=== PATIENT | male | born 1985 | race Caucasian/White ===

== ENCOUNTER 2016-11-10 12:29 | Emergency (ER) | payer MEDICAID | END 2016-11-10 15:09 | disposition home or self-care (01) | DX: J06.9 Acute upper respiratory infection, unspecified (principal); Q68.8 Other specified congenital musculoskeletal deformities; M06.9 Rheumatoid arthritis, unspecified; Z87.891 Personal history of nicotine dependence ==

== ENCOUNTER 2016-11-13 12:41 | Emergency (ER) | payer MEDICAID ==
[2016-11-13] MEDS ORDERED: HYDROmorphone 1 MG/ML SYRINGE IM STA (13:52)
[2016-11-13] MEDS ORDERED: PROMETHAZINE 25 MG/1 ML VIAL IM STA (13:57)
[2016-11-13] MEDS ORDERED: PROMETHAZINE 25 MG/1 ML VIAL ONE (14:17)
[2016-11-13] MEDS ORDERED: HYDROmorphone 1 MG/ML SYRINGE ONE (14:18)
== END 2016-11-13 14:30 | disposition home or self-care (01) ==
DX: H57.8 Other specified disorders of eye and adnexa (principal); J01.00 Acute maxillary sinusitis, unspecified; Z87.891 Personal history of nicotine dependence; H60.503 Unspecified acute noninfective otitis externa, bilateral
CPT/HCPCS: 96372; 99283; 99284; J1170

== ENCOUNTER 2016-12-12 | Outpatient (CLI) | payer MEDICAID | END 2016-12-12 17:01 | disposition critical access hospital (66) | CPT/HCPCS: A0425; A0429 ==

== ENCOUNTER 2016-12-12 17:31 | Emergency (ER) | payer MEDICAID ==
--- NOTE | 2016-12-12 19:10 | ED Physician Documentation ---
PD HPI SKIN - Stated complaint Stated Complaint: RT LEG PAIN - Chief complaint Chief Complaint: Ext Problem - History obtained from History obtained from: Patient - History of Present Illness Timing - onset: Other (has had heel wounds for several days with redness. Seen in wound care and had dressing changed. With redness increased was Rx Keflex, but did not get to pharmacy to get it yet. Dressing changes and debridement today caused heels and legs to hurt a lot. Here due to pain.) Timing - details: Abrupt onset (after debridement in clinic), Still present Quality / character: Painful, Discolored (redness). No: Draining Associated symptoms: No: Fever, N/V/D Recently seen: Clinic (seen wound clinic today with debridement of heel sores. 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, and with current infection of right heel.) PD PAST MEDICAL HISTORY - Past Medical History Past Medical History: Yes Cardiovascular: Arrhythmia Respiratory: None Neuro: None, Peripheral neuropathy Endocrine/Autoimmune: None HEENT: Chronic vision loss Psych: Anxiety Musculoskeletal: Rheumatoid arthritis, Other - Past Surgical History Past Surgical History: Yes Ortho: Arthroscopic surgery - Present Medications Home Medications: Ambulatory Orders Medication Instructions Recorded Confirmed HYDROmorphone [Dilaudid] 2 mg PO QID 08/16/16 12/12/16 Diazepam 1 tab PO BID PRN 10/26/16 12/12/16 Albuterol Sulfate 2.5 mg IH Q6H PRN #1 bot 11/13/16 12/12/16 Promethazine [Phenergan] 25 - 50 mg PO Q6H PRN #15 tab 11/13/16 12/12/16 Omeprazole 40 mg PO DAILY 12/12/16 12/12/16 buPROPion [Wellbutrin Sr] 150 mg PO BID 12/12/16 12/12/16 - Allergies Allergies/Adverse Reactions: Allergies Allergy/AdvReac Type Severity Reaction Status Date / Time ketorolac tromethamine * Allergy Unknown Verified 09/07/16 21:06 [From Toradol] tramadol Allergy Unknown Verified 09/07/16 21:06 acetaminophen [From Vicodin] AdvReac severe Verified 09/07/16 21:06 headache hydrocodone bitartrate * AdvReac severe Verified 09/07/16 21:06 [From Vicodin] headache NSAIDS (Non-Steroidal AdvReac Nausea Verified 12/12/16 17:41 Anti-Inflamma - Social History Does the pt smoke?: No Smoking Status: Former smoker Does the pt drink ETOH?: Yes Does the pt have substance abuse?: No - Immunizations Immunizations are current?: Yes - POLST Patient has POLST: No PD ED PE NORMAL - Vitals Vital signs reviewed: Yes - General General: Alert and oriented X 3, Well developed/nourished - Derm Derm: Normal color, Warm and dry - Extremities Extremities: Other (right heel with ulcerative sore without drainage. Redness around it. Very tender. Dressing reapplied by Tech. ) Results - Vitals Vitals: Vital Signs - 24 hr 12/12/16 12/12/16 17:32 20:12 Temperature 36.7 C Heart Rate 100 123 H Respiratory 20 15 Rate Blood Pressure 129/86 H 150/107 H O2 Saturation 100 97 Oxygen O2 Source Room air PD MEDICAL DECISION MAKING - ED course Complexity details: considered differential (talked with Herman about frequent visits to ED for med and that ongoing pain should be treated by his PMD.), d/w patient Departure - Departure Disposition: 01 Home, Self Care Clinical Impression: Skin infection Leg pain Qualifiers: Laterality: bilateral Qualified Code(s): M79.604 - Pain in right leg Condition: Stable Record reviewed to determine appropriate education?: Yes Follow-Up: Nils Macedo DO [Primary Care Provider] - Comments: Continue usual medications. Start the antibiotics you are prescribed. Continue wound care as directed by your PMD. Discharge Date/Time: 12/12/16 20:31
[2016-12-12] MEDS ORDERED: HYDROmorphone 1 MG/ML SYRINGE IM STA (19:11)
[2016-12-12] MEDS ORDERED: CEPHALEXIN 250 MG CAPSULE PO STA (19:11)
[2016-12-12] MEDS ORDERED: MUPIROCIN 2% OINT 22 GM TUBE TOP STA (19:12)
[2016-12-12] MEDS ORDERED: HYDROmorphone 1 MG/ML SYRINGE ONE ×2 (19:19→19:46)
[2016-12-12] MEDS ORDERED: CEPHALEXIN 250 MG CAPSULE PO ONE (19:19)
[2016-12-12] MEDS ORDERED: MUPIROCIN 2% OINT 22 GM TUBE TOP ONE (19:21)
[2016-12-12] MEDS ORDERED: PROMETHAZINE 25 MG/1 ML VIAL IM STA (19:27)
[2016-12-12] MEDS ORDERED: PROMETHAZINE 25 MG/1 ML VIAL ONE (19:45)
[2016-12-12 20:13] VITALS: BP 150/107
== END 2016-12-12 20:31 | disposition home or self-care (01) ==
LOC: EDUNIT# → EDBD → ED 17:31
DX: L08.9 Local infection of the skin and subcutaneous tissue, unspecified (principal); L97.419 Non-pressure chronic ulcer of right heel and midfoot with unspecified severity; M79.605 Pain in left leg; M79.604 Pain in right leg; G62.9 Polyneuropathy, unspecified; M06.9 Rheumatoid arthritis, unspecified; Z87.891 Personal history of nicotine dependence
CPT/HCPCS: 96372; 99283; A9270; J1170

== ENCOUNTER 2016-12-13 | Outpatient (CLI) | payer MEDICAID | END 2016-12-13 18:04 | disposition critical access hospital (66) | CPT/HCPCS: A0425; A0429 ==

== ENCOUNTER 2016-12-13 | Emergency (ER) | payer MEDICAID | END 2016-12-13 19:10 | disposition home or self-care (01) ==

== ENCOUNTER 2017-02-07 19:24 | Outpatient (CLI) | payer MEDICAID | END 2017-02-07 19:25 | disposition EMS.NT | DX: R53.81 Other malaise (principal) ==

== ENCOUNTER 2017-02-11 10:53 | Outpatient (CLI) | payer MEDICAID | END 2017-02-11 10:54 | disposition home or self-care (01) | DX: Q74.3 Arthrogryposis multiplex congenita (principal); M54.5 Low back pain; Z79.891 Long term (current) use of opiate analgesic; M99.08 Segmental and somatic dysfunction of rib cage; N53.12 Painful ejaculation ==

== ENCOUNTER 2017-02-24 14:30 | Outpatient (CLI) | payer MEDICAID | END 2017-02-24 14:31 | disposition home or self-care (01) | DX: L89.512 Pressure ulcer of right ankle, stage 2 (principal) ==

== ENCOUNTER 2017-02-24 17:37 | Emergency (ER) | payer MEDICAID ==
[2017-02-24] MEDS ORDERED: PROMETHAZINE 25 MG/1 ML VIAL IM STA (17:50)
[2017-02-24] MEDS ORDERED: CIPROFLOXACIN 250 MG TABLET PO STA (17:50)
[2017-02-24] MEDS ORDERED: HYDROmorphone 1 MG/ML SYRINGE IM STA (17:50)
[2017-02-24] MEDS ORDERED: PROMETHAZINE 25 MG/1 ML VIAL ONE (17:52)
[2017-02-24] MEDS ORDERED: CIPROFLOXACIN 250 MG TABLET PO ONE (17:53)
[2017-02-24] MEDS ORDERED: HYDROmorphone 1 MG/ML SYRINGE ONE (17:53)
== END 2017-02-24 18:28 | disposition home or self-care (01) ==
DX: L03.115 Cellulitis of right lower limb (principal); I49.9 Cardiac arrhythmia, unspecified; G62.9 Polyneuropathy, unspecified; M06.9 Rheumatoid arthritis, unspecified; Z87.891 Personal history of nicotine dependence
CPT/HCPCS: 87070; 87205; 96372; 99283; A9270; J1170

== ENCOUNTER 2017-03-01 13:06 | Emergency (ER) | payer MEDICAID ==
[2017-03-01] MEDS ORDERED: PROMETHAZINE 25 MG/1 ML VIAL IM STA (13:33)
[2017-03-01] MEDS ORDERED: HYDROmorphone 1 MG/ML SYRINGE IM STA (13:33)
[2017-03-01] MEDS ORDERED: HYDROmorphone 1 MG/ML SYRINGE ONE (13:34)
[2017-03-01] MEDS ORDERED: PROMETHAZINE 25 MG/1 ML VIAL ONE (13:34)
[2017-03-01] MEDS ORDERED: ERTAPENEM 1 GM VIAL IM STA (13:55)
== END 2017-03-01 14:55 | disposition home or self-care (01) ==
DX: L03.115 Cellulitis of right lower limb (principal); B96.5 Pseudomonas (aeruginosa) (mallei) (pseudomallei) as the cause of diseases classified elsewhere; B95.2 Enterococcus as the cause of diseases classified elsewhere; L89.512 Pressure ulcer of right ankle, stage 2; R03.0 Elevated blood-pressure reading, without diagnosis of hypertension; Q68.8 Other specified congenital musculoskeletal deformities; G62.9 Polyneuropathy, unspecified; M06.9 Rheumatoid arthritis, unspecified; Z87.891 Personal history of nicotine dependence
CPT/HCPCS: 96372; 99283; 99284; J1170; J1335

== ENCOUNTER 2017-11-09 21:20 | Outpatient (CLI) | payer MEDICAID | END 2017-11-09 21:21 | disposition EMS.NT | LOC: EMS 21:20 | PROVIDERS: ATTEND Surgery | DX: I10 Essential (primary) hypertension (principal) ==

== ENCOUNTER 2017-12-02 18:50 | Emergency (ER) | payer MEDICAID ==
[2017-12-02 19:00] VITALS: BP 169/95
[2017-12-02] MEDS ORDERED: CYCLOBENZAPRINE 10 MG TABLET PO STA (20:16)
[2017-12-02 20:51] LABS: MEAN PLATELET VOLUME 8.8 fL (7.4-11.4); PLT - PLATELET COUNT 274 10^3/uL (130-450)
[2017-12-02 20:56] LABS: BASOPHILS # (AUTO) 0.2 10^3/uL (0.0-0.1); BASOPHILS % (AUTO) 1.7 %; EOSINOPHILS # (AUTO) 0.2 10^3/uL (0.0-0.7); EOSINOPHILS % (AUTO) 1.6 %; LYMPHOCYTES # (AUTO) 4.1 10^3/uL (1.5-3.5); LYMPHOCYTES % (AUTO) 31.6 %; MEAN CORPUSCULAR HEMOGLOBIN 25.8 pg (27.0-31.0); MEAN CORPUSCULAR HGB CONC 31.9 g/dL (32.0-36.0); MONOCYTES # (AUTO) 0.8 10^3/uL (0.0-1.0); MONOCYTES % (AUTO) 6.1 %; NEUTROPHILS # (AUTO) 7.7 10^3/uL (1.5-6.6); RED BLOOD COUNT 5.44 10^6/uL (4.70-6.10); RED CELL DISTRIBUTION WIDTH 15.1 % (12.0-15.0); WHITE BLOOD COUNT 13.1 x10^3/uL (4.8-10.8)
[2017-12-02 21:12] LABS: ALBUMIN 4.2 g/dL (3.2-5.5); ALBUMIN/GLOBULIN RATIO 1.1 (1.0-2.2); BILIRUBIN,TOTAL 0.4 mg/dL (0.2-1.0); CALCIUM 9.2 mg/dL (8.5-10.3); CREATININE 0.6 mg/dL (0.6-1.2); TOTAL PROTEIN 8.1 g/dL (6.7-8.2)
--- NOTE | 2017-12-02 21:28 | ED Physician Documentation ---
PD HPI LOWER EXT INJURY - Stated complaint Stated Complaint: R LEG PX - Chief complaint Chief Complaint: Ext Problem - History obtained from History obtained from: Patient - History of Present Illness PD HPI LOW EXT INJURY LOCATION: Right, Upper leg Where injury occurred: Home Timing - onset: How many days ago (2) Timing - details: Gradual onset, Still present Associated symptoms: No: Weakness, Numbness, Discolored Contributing factors: Prior ortho surgery, Prosthetic joint Similar symptoms before: No diagnosis Recently seen: Not recently seen - Additional information Additional information: Patient is a 32 year old male who is presenting to the emergency deparment for pain and spasm in his right lower extremity. Patient states that it has been going on for the last few days. Patient states that it is mainly above his knee with radiation up his hip and towards his medial knee. Patient denies any recent trauma. Review of Systems Constitutional: denies: Fever, Chills Eyes: reports: Reviewed and negative Ears: reports: Reviewed and negative Nose: reports: Reviewed and negative Throat: reports: Reviewed and negative Cardiac: denies: Chest pain / pressure, Palpitations, Pedal edema Respiratory: denies: Dyspnea GI: denies: Nausea, Vomiting : reports: Reviewed and negative Skin: denies: Rash, Abrasion (s) Musculoskeletal: reports: Extremity pain, Extremity swelling Neurologic: denies: Generalized weakness, Focal weakness Immunocompromised: denies: Immunocompromised PD PAST MEDICAL HISTORY - Past Medical History Cardiovascular: Arrhythmia Respiratory: None Neuro: Peripheral neuropathy Endocrine/Autoimmune: None HEENT: Chronic vision loss Psych: Anxiety Musculoskeletal: Rheumatoid arthritis, Other - Past Surgical History Past Surgical History: Yes Ortho: Arthroscopic surgery - Present Medications Home Medications: Ambulatory Orders Medication Instructions Recorded Confirmed HYDROmorphone [Dilaudid] 2 mg PO QID 08/16/16 03/01/17 Albuterol Sulfate 2.5 mg IH Q6H PRN #1 bot 11/13/16 03/01/17 Omeprazole 40 mg PO DAILY 12/12/16 03/01/17 Cyclobenzaprine [Flexeril] 10 mg PO TID PRN #10 tablet 12/02/17 - Allergies Allergies/Adverse Reactions: Allergies Allergy/AdvReac Type Severity Reaction Status Date / Time ketorolac tromethamine * Allergy Unknown Verified 12/02/17 19:00 [From Toradol] tramadol Allergy Unknown Verified 12/02/17 19:00 acetaminophen [From Vicodin] AdvReac severe Verified 12/02/17 19:00 headache hydrocodone bitartrate * AdvReac severe Verified 12/02/17 19:00 [From Vicodin] headache NSAIDS (Non-Steroidal AdvReac Nausea Verified 12/02/17 19:00 Anti-Inflamma - Social History Does the pt smoke?: No Smoking Status: Never smoker Does the pt drink ETOH?: Yes Does the pt have substance abuse?: No - Immunizations Immunizations are current?: Yes - POLST Patient has POLST: No PD ED PE NORMAL - Vitals Vital signs reviewed: Yes - General General: Alert and oriented X 3, No acute distress - HEENT HEENT: Atraumatic, PERRL - Neck Neck: No bony TTP - Cardiac Cardiac: RRR, No murmur - Respiratory Respiratory: No respiratory distress - Derm Derm: Normal color, Warm and dry, No rash - Neuro Neuro: Alert and oriented X 3, Normal speech PD ED PE EXPANDED - Extremities Extremities: Right thigh (mild tenderness to palpation of right thigh, no erythema or ecchymosis), Other (patient's bilateral ankles are in braces and deformity of upper extremities unchanged) Results - Vitals Vitals: Vital Signs - 24 hr 12/02/17 18:55 Temperature 37.1 C Heart Rate 97 Respiratory 16 Rate Blood Pressure 169/95 H O2 Saturation 97 Oxygen O2 Source Room air - Labs Labs: Laboratory Tests 12/02/17 12/02/17 20:43 20:43 WBC 13.1 H RBC 5.44 Hgb 14.0 Hct 44.1 MCV 81.0 MCH 25.8 L MCHC 31.9 L RDW 15.1 H Plt Count 274 MPV 8.8 Neut # 7.7 H Lymph # 4.1 H Bond # 0.8 Eos # 0.2 Baso # 0.2 H Absolute Nucleated RBC 0.01 Nucleated RBC % 0.0 Sodium 137 Potassium 3.9 Chloride 103 Carbon Dioxide 22 Anion Gap 12.0 BUN 17 Creatinine 0.6 Estimated GFR (MDRD) 154 Glucose 88 Calcium 9.2 Total Bilirubin 0.4 AST 16 ALT 17 Alkaline Phosphatase 50 Total Protein 8.1 Albumin 4.2 Globulin 3.9 Albumin/Globulin Ratio 1.1 Lipase 35 PD MEDICAL DECISION MAKING - ED course Complexity details: reviewed old records, reviewed results, re-evaluated patient , considered differential, d/w patient ED course: Patient was seen and examined at bedside. Patient was in no distress. Patient was treated with flexeril and labs were drawn. When patient's diagnostics came back there were no major abnormalities. Patient required no further work up and was stable for discharge with outpatient follow up. Departure - Departure Disposition: 01 Home, Self Care Clinical Impression: Muscle strain Condition: Good Instructions: ED Spasm Muscle Follow-Up: Nils Macedo DO [Primary Care Provider] - As Needed Prescriptions: Cyclobenzaprine [Flexeril] 10 mg PO TID PRN #10 tablet PRN Reason: Spasms Comments: Your diagnostics today were within normal limits. there were no major abnormalities on your labs. The most important thing will be stretching your quadriceps. You should work with your doctor to set up physical therapy but home stretching should suffice. Discharge Date/Time: 12/02/17 21:33
== END 2017-12-02 21:33 | disposition home or self-care (01) ==
LOC: ED 18:50
DX: S76.911A Strain of unspecified muscles, fascia and tendons at thigh level, right thigh, initial encounter (principal); M06.9 Rheumatoid arthritis, unspecified
CPT/HCPCS: 36415; 80053; 83690; 85025; 99282; 99283; A9270

== ENCOUNTER 2017-12-11 04:13 | Outpatient (CLI) | payer MEDICAID | END 2017-12-11 04:14 | disposition EMS.NT | LOC: EMS 04:13 | PROVIDERS: ATTEND Surgery | DX: R07.9 Chest pain, unspecified (principal) ==

== ENCOUNTER 2017-12-30 19:19 | Outpatient (CLI) | payer MEDICAID | END 2017-12-30 19:20 | disposition critical access hospital (66) | LOC: EMS 19:19 | PROVIDERS: ATTEND Surgery | DX: H53.9 Unspecified visual disturbance (principal); R07.9 Chest pain, unspecified | CPT/HCPCS: A0425; A0429 ==

== ENCOUNTER 2017-12-30 19:31 | Emergency (ER) | payer MEDICAID ==
[2017-12-30 19:43] VITALS: BP 156/96
[2017-12-30] MEDS ORDERED: MECLIZINE 12.5 MG TABLET PO STA (20:13)
--- NOTE | 2017-12-30 20:20 | ED Physician Documentation ---
History of Present Illness - Stated complaint Stated Complaint: VISUAL DISTURBANCES - Chief complaint Chief Complaint: General - History obtained from History obtained from: Patient, Friend - History of Present Illness Timing: Today - Additonal information Additional information: patient is a 32 year old male presenting to the emergency department for his eyes shaking. Patient states that he was driving when everything seemed to be spinning. patient states that he pulled over and had his friend bring him in. Upon initial evaluation in the emergency department patient's symptoms had improved but he still had some of the symptoms if he moved his head. Patient denied any focal numbness, weakness or or neurological deficiency. Review of Systems Eyes: reports: Decreased vision Ears: reports: Tinnitus/ringing Nose: denies: Rhinorrhea / runny nose, Congestion Throat: reports: Reviewed and negative Cardiac: reports: Reviewed and negative Respiratory: reports: Reviewed and negative GI: reports: Reviewed and negative : reports: Reviewed and negative Skin: reports: Reviewed and negative Musculoskeletal: reports: Reviewed and negative Neurologic: denies: Focal weakness, Numbness, Headache, Head injury, LOC Psychiatric: reports: Anxiety PD PAST MEDICAL HISTORY - Past Medical History Past Medical History: Yes Cardiovascular: Arrhythmia Respiratory: None Neuro: Peripheral neuropathy Endocrine/Autoimmune: None HEENT: Chronic vision loss Psych: Anxiety Musculoskeletal: Rheumatoid arthritis, Other - Past Surgical History Past Surgical History: Yes Ortho: Arthroscopic surgery - Present Medications Home Medications: Ambulatory Orders Medication Instructions Recorded Confirmed HYDROmorphone [Dilaudid] 2 mg PO QID 08/16/16 03/01/17 Albuterol Sulfate 2.5 mg IH Q6H PRN #1 bot 11/13/16 03/01/17 Omeprazole 40 mg PO DAILY 12/12/16 03/01/17 Cyclobenzaprine [Flexeril] 10 mg PO TID PRN #10 tablet 12/02/17 Meclizine [Antivert] 25 mg PO Q6H #20 tablet 12/30/17 - Allergies Allergies/Adverse Reactions: Allergies Allergy/AdvReac Type Severity Reaction Status Date / Time ketorolac tromethamine * Allergy Unknown Verified 12/02/17 19:00 [From Toradol] tramadol Allergy Unknown Verified 12/02/17 19:00 acetaminophen [From Vicodin] AdvReac severe Verified 12/02/17 19:00 headache hydrocodone bitartrate * AdvReac severe Verified 12/02/17 19:00 [From Vicodin] headache NSAIDS (Non-Steroidal AdvReac Nausea Verified 12/02/17 19:00 Anti-Inflamma - Social History Does the pt smoke?: No Smoking Status: Never smoker Does the pt drink ETOH?: Yes Does the pt have substance abuse?: No - Immunizations Immunizations are current?: Yes - POLST Patient has POLST: No PD ED PE NORMAL - General General: Alert and oriented X 3, No acute distress - Cardiac Cardiac: RRR, No murmur - Respiratory Respiratory: No respiratory distress - Derm Derm: Normal color, No rash - Neuro Neuro: Alert and oriented X 3, 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, No sensory deficit Eye Opening: Spontaneous Motor: Obeys Commands Verbal: Oriented GCS Score: 15 PD ED PE EXPANDED - Neuro Neuro: Other (mimal nystagmus) Results - Vitals Vitals: Vital Signs - 24 hr 12/30/17 19:35 Temperature 37.4 C Heart Rate 82 Respiratory 20 Rate Blood Pressure 156/96 H O2 Saturation 98 Oxygen O2 Source Room air - EKG (time done) 1940 Rate: Rate (enter#) (76) Rhythm: NSR [place]: Normal QRS: LVH Compare to prior EKG: Unchanged from prior EKG PD MEDICAL DECISION MAKING - ED course Complexity details: reviewed old records, reviewed results, re-evaluated patient , considered differential, d/w patient ED course: Patient was seen and examined at bedside. Patient had ekg performed in triage that was unchanged. Patient's symptoms were likely secondary to bpv. Patient required no further work up and was stable for discharge with outpatient follow up. Departure - Departure Disposition: 01 Home, Self Care Clinical Impression: Benign positional vertigo Condition: Good Instructions: ED BPV Vertigo Follow-Up: primary,care provider [Other] - As Needed Prescriptions: Meclizine [Antivert] 25 mg PO Q6H #20 tablet Comments: Your symptoms today are likely being caused by benign positional vertigo which is caused by your inner ear. it is normally worse with certain movements. You can try the modified maneuvers as needed but it normally gets better on its own. you should follow up with your doctor if if becomes more frequent or doesnt' resolve. Discharge Date/Time: 12/30/17 20:25
== END 2017-12-30 20:25 | disposition home or self-care (01) ==
LOC: EDUNIT# → ED 19:31
DX: H81.10 Benign paroxysmal vertigo, unspecified ear (principal)
CPT/HCPCS: 93005; 99283; A9270

== ENCOUNTER 2018-01-24 20:38 | Outpatient (CLI) | payer MEDICAID | END 2018-01-24 20:39 | disposition EMS.NT | LOC: EMS 20:38 | PROVIDERS: ATTEND Surgery | DX: R00.8 Other abnormalities of heart beat (principal) ==

== ENCOUNTER 2018-01-25 20:09 | Emergency (ER) | payer MEDICAID ==
--- NOTE | 2018-01-25 21:07 | ED Physician Documentation ---
PD HPI CHEST PAIN - Stated complaint Stated Complaint: HIGH HEART RATE/NAUS - Chief complaint Chief Complaint: Cardiac - History obtained from History obtained from: Patient - History of Present Illness Timing - onset: Other (32-year-old gentleman with history of arthrogryposis and chronic pain. He drank a large high alcohol drink last night and then immediately became flushed and developed throbbing pain around the neck and into the face and the chest. He was evaluated by paramedics and released, but it has been coming and going today especially after drinking Crystal light. He is not short of breath per se.) Review of Systems Constitutional: denies: Fever, Chills Cardiac: reports: Chest pain / pressure, Palpitations. denies: Pedal edema, Calf pain Respiratory: denies: Dyspnea, Cough GI: denies: Abdominal Pain PD PAST MEDICAL HISTORY - Past Medical History Cardiovascular: Arrhythmia Respiratory: None Neuro: Peripheral neuropathy Endocrine/Autoimmune: None GI: None : None HEENT: Chronic vision loss Psych: Anxiety Musculoskeletal: Rheumatoid arthritis, Other Derm: None - Past Surgical History Past Surgical History: Yes Ortho: Arthroscopic surgery - Present Medications Home Medications: Ambulatory Orders Medication Instructions Recorded Confirmed HYDROmorphone [Dilaudid] 2 mg PO QID 08/16/16 03/01/17 Albuterol Sulfate 2.5 mg IH Q6H PRN #1 bot 11/13/16 03/01/17 Omeprazole 40 mg PO DAILY 12/12/16 03/01/17 Cyclobenzaprine [Flexeril] 10 mg PO TID PRN #10 tablet 12/02/17 Meclizine [Antivert] 25 mg PO Q6H #20 tablet 12/30/17 - Allergies Allergies/Adverse Reactions: Allergies Allergy/AdvReac Type Severity Reaction Status Date / Time ketorolac tromethamine * Allergy Unknown Verified 12/02/17 19:00 [From Toradol] tramadol Allergy Unknown Verified 12/02/17 19:00 acetaminophen [From Vicodin] AdvReac severe Verified 12/02/17 19:00 headache hydrocodone bitartrate * AdvReac severe Verified 12/02/17 19:00 [From Vicodin] headache NSAIDS (Non-Steroidal AdvReac Nausea Verified 12/02/17 19:00 Anti-Inflamma oxycodone AdvReac Unknown Verified 01/25/18 20:20 - Social History Does the pt smoke?: No Smoking Status: Never smoker Does the pt drink ETOH?: Yes Does the pt have substance abuse?: No - Immunizations Immunizations are current?: Yes - POLST Patient has POLST: No PD ED PE NORMAL - Vitals Vital signs reviewed: Yes - General General: Alert and oriented X 3, Other (Arthrogryposis, mostly wheelchair-bound. ) - Neck Neck: Supple, no meningeal sign, No bony TTP - Cardiac Cardiac: RRR, No murmur, Other (Tenderness to the anterior chest wall and lateral ribs on the left) - Respiratory Respiratory: No respiratory distress, Clear bilaterally - Abdomen Abdomen: Non tender - Extremities Extremities: No edema, No calf tenderness / cord, Other (Feet in splints, multiple orthopedic abnormalities.) - Neuro Neuro: Alert and oriented X 3, Normal speech Results - Vitals Vitals: Vital Signs - 24 hr 01/25/18 01/25/18 20:16 21:14 Temperature 37.3 C Heart Rate 106 H 87 Respiratory 20 13 Rate Blood Pressure 142/99 H 137/99 H O2 Saturation 94 97 Oxygen O2 Source Room air - EKG (time done) 2020 Rate: Rate (enter#) (95) Rhythm: NSR [place]: Normal QRS: LVH Ischemia: Non specific changes Computer interpretation: Agree with computer - Labs Labs: Laboratory Tests 01/25/18 01/25/18 01/25/18 21:25 21:25 21:25 WBC 15.0 H RBC 5.25 Hgb 13.7 L Hct 41.8 L MCV 79.6 L MCH 26.1 L MCHC 32.7 RDW 14.7 Plt Count 249 MPV 8.8 Neut # 9.7 H Lymph # 3.8 H [place] # 1.0 Eos # 0.3 Baso # 0.2 H Absolute Nucleated RBC 0.00 Nucleated RBC % 0.0 Sodium 138 Potassium 3.9 Chloride 106 Carbon Dioxide 22 Anion Gap 10.0 BUN 18 Creatinine 0.4 L Estimated GFR (MDRD) 246 Glucose 96 Calcium 9.1 Total Bilirubin 0.5 AST 17 ALT 19 Alkaline Phosphatase 51 Troponin I < 0.04 Total Protein 7.9 Albumin 4.1 Globulin 3.8 Albumin/Globulin Ratio 1.1 Lipase 21 L PD MEDICAL DECISION MAKING - ED course ED course: Symptoms seem like they are related to the alcohol last night, his EKG now is nonischemic and he did not have any significant tachycardias here. His troponin is undetectable. PE is considered but he is not having any new leg symptoms or shortness of breath. Departure - Departure Disposition: 01 Home, Self Care Clinical Impression: Chest wall pain Condition: Good Record reviewed to determine appropriate education?: Yes Instructions: ED Chest Pain NonCardiac Comments: Call your doctor to arrange a follow-up appointment, make the next available appointment. In the interim, return anytime if worse or if new symptoms develop.
[2018-01-25 21:29] LABS: BASOPHILS # (AUTO) 0.2 10^3/uL (0.0-0.1); BASOPHILS % (AUTO) 1.3 %; EOSINOPHILS # (AUTO) 0.3 10^3/uL (0.0-0.7); EOSINOPHILS % (AUTO) 1.7 %; HGB - HEMOGLOBIN 13.7 g/dL (14.0-18.0); LYMPHOCYTES # (AUTO) 3.8 10^3/uL (1.5-3.5); LYMPHOCYTES % (AUTO) 25.4 %; MEAN CORPUSCULAR HEMOGLOBIN 26.1 pg (27.0-31.0); MEAN CORPUSCULAR HGB CONC 32.7 g/dL (32.0-36.0); MEAN CORPUSCULAR VOLUME 79.6 fL (80.0-94.0); MEAN PLATELET VOLUME 8.8 fL (7.4-11.4); NEUTROPHILS # (AUTO) 9.7 10^3/uL (1.5-6.6); NEUTROPHILS % (AUTO) 64.6 %; PLT - PLATELET COUNT 249 10^3/uL (130-450); RED BLOOD COUNT 5.25 10^6/uL (4.70-6.10); RED CELL DISTRIBUTION WIDTH 14.7 % (12.0-15.0)
[2018-01-25 21:42] LABS: ALBUMIN 4.1 g/dL (3.2-5.5); ALBUMIN/GLOBULIN RATIO 1.1 (1.0-2.2); BILIRUBIN,TOTAL 0.5 mg/dL (0.2-1.0); CALCIUM 9.1 mg/dL (8.5-10.3); CREATININE 0.4 mg/dL (0.6-1.2); TOTAL PROTEIN 7.9 g/dL (6.7-8.2)
[2018-01-25] MEDS ORDERED: HYDROmorphone 2 MG TABLET PO STA (21:57)
[2018-01-25] MEDS ORDERED: PROMETHAZINE 25 MG TABLET PO STA (21:57)
[2018-01-25] MEDS ORDERED: PANTOPRAZOLE 40 MG TABLET PO STA (21:57)
[2018-01-25 22:15] VITALS: BP 120/90
== END 2018-01-25 22:15 | disposition home or self-care (01) ==
LOC: ED 20:09
DX: R07.89 Other chest pain (principal)
CPT/HCPCS: 36415; 80053; 83690; 84484; 85025; 93005; 99283; 99284; A9270; Q0169

== ENCOUNTER 2018-02-07 19:27 | Outpatient (CLI) | payer MEDICAID | END 2018-02-07 19:28 | disposition critical access hospital (66) | LOC: EMS 19:27 | PROVIDERS: ATTEND Surgery | DX: R41.82 Altered mental status, unspecified (principal); J02.9 Acute pharyngitis, unspecified; R51 Headache; R05 Cough; R19.7 Diarrhea, unspecified; M79.1 Myalgia | CPT/HCPCS: A0425; A0429 ==

== ENCOUNTER 2018-02-07 19:56 | Emergency (ER) | payer MEDICAID ==
[2018-02-07] MEDS ORDERED: LOPERAMIDE 2 MG CAPSULE PO STA (20:23)
[2018-02-07] MEDS ORDERED: PROMETHAZINE 25 MG/1 ML VIAL IM STA (20:23)
--- NOTE | 2018-02-07 20:55 | XRAY Report ---
EXAM: CHEST RADIOGRAPHY EXAM DATE: 02/07/2018 08:33 PM. CLINICAL HISTORY: Fever, history of lung failure. COMPARISON: Chest x-ray 11/10/2016. TECHNIQUE: 1 view. FINDINGS: Lungs/Pleura: No pleural effusion or pneumothorax. Low lung volumes without acute consolidation. Mediastinum: Within exam limitations, the cardiomediastinal contour is normal. Other: None. IMPRESSION: No acute pulmonary consolidation. [facility] Referring Provider Line: [phone] SITE ID: [id number]
--- NOTE | 2018-02-07 21:00 | ED Physician Documentation ---
History of Present Illness - Stated complaint Stated Complaint: HAILE,DIARRHEA,COUGH,FEVER - Chief complaint Chief Complaint: General - History obtained from History obtained from: Patient, EMS - History of Present Illness Timing: How many days ago (4) - Additonal information Additional information: Patient is a 32 year old male presenting to the emergency department for cough, congestion, headache and diarrhea. patient states that the symptoms have been going on for the last 3 days. Patient denies any recent travel or sick contacts. Patient reports nausea but denies any vomiting at this point. Review of Systems Constitutional: reports: Fever, Chills, Myalgias Eyes: reports: Reviewed and negative Ears: denies: Ear pain Nose: reports: Rhinorrhea / runny nose, Congestion, Sinus pressure / pain Throat: reports: Sore throat Respiratory: reports: Cough. denies: Wheezing GI: reports: Nausea, Diarrhea. denies: Vomiting : denies: Dysuria, Frequency Skin: denies: Lesions Musculoskeletal: reports: Neck pain, Back pain, Extremity pain Neurologic: reports: Generalized weakness. denies: Focal weakness, Numbness Immunocompromised: denies: Immunocompromised PD PAST MEDICAL HISTORY - Past Medical History Cardiovascular: Arrhythmia Respiratory: None Neuro: Peripheral neuropathy Endocrine/Autoimmune: None GI: None : None HEENT: Chronic vision loss Psych: Anxiety Musculoskeletal: Rheumatoid arthritis, Other Derm: None - Past Surgical History Past Surgical History: Yes Ortho: Arthroscopic surgery - Present Medications Home Medications: Ambulatory Orders Medication Instructions Recorded Confirmed HYDROmorphone [Dilaudid] 2 mg PO QID 08/16/16 03/01/17 Albuterol Sulfate 2.5 mg IH Q6H PRN #1 bot 11/13/16 03/01/17 Omeprazole 40 mg PO DAILY 12/12/16 03/01/17 Promethazine [Phenergan] 25 mg PO Q6H PRN #10 tab 02/07/18 - Allergies Allergies/Adverse Reactions: Allergies Allergy/AdvReac Type Severity Reaction Status Date / Time ketorolac tromethamine * Allergy Unknown Verified 02/07/18 20:01 [From Toradol] tramadol Allergy Unknown Verified 02/07/18 20:01 acetaminophen [From Vicodin] AdvReac severe Verified 02/07/18 20:01 headache hydrocodone bitartrate * AdvReac severe Verified 02/07/18 20:01 [From Vicodin] headache NSAIDS (Non-Steroidal AdvReac Nausea Verified 02/07/18 20:01 Anti-Inflamma oxycodone AdvReac Unknown Verified 02/07/18 20:01 - Social History Does the pt smoke?: No Smoking Status: Never smoker Does the pt drink ETOH?: Yes Does the pt have substance abuse?: No - Immunizations Immunizations are current?: Yes - POLST Patient has POLST: No PD ED PE NORMAL - Vitals Vital signs reviewed: Yes - General General: Alert and oriented X 3 - HEENT HEENT: Atraumatic, PERRL - Neck Neck: Supple, no meningeal sign - Derm Derm: Normal color - Neuro Neuro: Alert and oriented X 3 Eye Opening: Spontaneous PD ED PE EXPANDED - HEENT HEENT: Nasal congestion, Rhinorrhea, Dry mucous membranes - Cardiac Cardiac: Tachy - Respiratory Respiratory: Clear to ausultation brenda. No: Distress, Labored - Extremities Extremities: Other (deformity of patient's extremities unchanged ) Results - Vitals Vitals: Vital Signs - 24 hr 02/07/18 19:53 Temperature 37.3 C Heart Rate 116 H Respiratory 20 Rate Blood Pressure 159/108 H O2 Saturation 97 Oxygen O2 Source Room air - Labs Labs: Laboratory Tests 02/07/18 20:20 Influenza A (Rapid) Negative Influenza B (Rapid) Negative Influenza Types A,B Ag - - Rads (name of study) chest x-ray Radiology: Final report received (normal) PD MEDICAL DECISION MAKING - ED course Complexity details: reviewed old records, reviewed results, re-evaluated patient , considered differential, d/w patient ED course: Patient was seen and examined at bedside. chest x-ray was ordered as well as flu swab. Patient was treated with phenegran 25mg IM. Patient was given oral hydration. Patient's chest x-ray and flu swab were within normal limits. Patient was able to tolerate PO without difficulty. patient required no further inpatient work up and was stable for discharge with outpatient follow up. Departure - Departure Disposition: 01 Home, Self Care Clinical Impression: Viral syndrome Condition: Good Instructions: ED Viral Syndrome Follow-Up: Nils Macedo DO [Primary Care Provider] - Within 3 Days Prescriptions: Promethazine [Phenergan] 25 mg PO Q6H PRN #10 tab PRN Reason: Nausea / Vomiting Comments: Your diagnostics today were within normal limits. the flu swab was negative and your chest x-ray showed no sign of pneumonia. Your symptoms are likely viral in nature. You should take the phenegran as needed for nausea and vomiting and make sure you stay well hydrated with water and electrolyte solution (gatorade/pedialyte). You can continue with over the counter cold and flu medication and imodium as needed for excessive diarrhea. You should follow up with your doctor friday if your symptoms are still present.
[2018-02-08 00:31] VITALS: BP 155/108
== END 2018-02-08 00:28 | disposition home or self-care (01) ==
LOC: EDUNIT# → ED 19:56
DX: B34.9 Viral infection, unspecified (principal); G62.9 Polyneuropathy, unspecified
CPT/HCPCS: 71045; 87275; 87276; 96372; 99283; 99284; A9270

== ENCOUNTER 2018-02-08 00:29 | Outpatient (CLI) | payer MEDICAID | END 2018-02-08 00:30 | disposition home or self-care (01) | LOC: EMS 00:29 | PROVIDERS: ATTEND Surgery | DX: R53.1 Weakness (principal); R50.9 Fever, unspecified; Z99.3 Dependence on wheelchair | CPT/HCPCS: A0425; A0428 ==

== ENCOUNTER 2018-03-20 15:40 | Outpatient (CLI) | payer MEDICAID | END 2018-03-20 15:41 | disposition critical access hospital (66) | LOC: EMS 15:40 | PROVIDERS: ATTEND Surgery | DX: M25.552 Pain in left hip (principal); W01.0XXA Fall on same level from slipping, tripping and stumbling without subsequent striking against object, initial encounter; Y92.59 Other trade areas as the place of occurrence of the external cause | CPT/HCPCS: A0425; A0429 ==

== ENCOUNTER 2018-03-20 16:10 | Emergency (ER) | payer MEDICAID ==
[2018-03-20] MEDS ORDERED: MORPHINE 10 MG/ML VIAL IM STA ×2 (16:45→18:28)
[2018-03-20] MEDS ORDERED: PROMETHAZINE 25 MG/1 ML VIAL IM STA (16:45)
--- NOTE | 2018-03-20 16:49 | ED Physician Documentation ---
PD HPI LOWER EXT INJURY - Stated complaint Stated Complaint: L HIP PX - Chief complaint Chief Complaint: Ext Problem - History obtained from History obtained from: Patient, EMS - History of Present Illness PD HPI LOW EXT INJURY LOCATION: Other (2 days ago he was standing up and trying to put on his pants and bend over for some underwear and he fell over his wheelchair and kind of did the splits and complains of left hip and back pain. He is able to walk and bear weight. No other injuries. Note made that he has a long history of orthopedic complaints and has arthrogryposis. He also has a history of chronic pain and drug-seeking behavior.) Review of Systems Constitutional: reports: Reviewed and negative Cardiac: reports: Reviewed and negative Respiratory: reports: Reviewed and negative PD PAST MEDICAL HISTORY - Past Medical History Cardiovascular: Arrhythmia Respiratory: None Endocrine/Autoimmune: None GI: None : None HEENT: Chronic vision loss Psych: Anxiety Musculoskeletal: Rheumatoid arthritis, Other Derm: None - Past Surgical History Past Surgical History: Yes Ortho: Arthroscopic surgery - Present Medications Home Medications: Ambulatory Orders Medication Instructions Recorded Confirmed HYDROmorphone [Dilaudid] 2 mg PO Q4H #10 tablet 03/20/18 Omeprazole [PriLOSEC] 03/20/18 - Allergies Allergies/Adverse Reactions: Allergies Allergy/AdvReac Type Severity Reaction Status Date / Time ketorolac tromethamine * Allergy Unknown Verified 03/20/18 16:18 [From Toradol] tramadol Allergy Unknown Verified 03/20/18 16:18 acetaminophen [From Vicodin] AdvReac severe Verified 03/20/18 16:18 headache hydrocodone bitartrate * AdvReac severe Verified 03/20/18 16:18 [From Vicodin] headache NSAIDS (Non-Steroidal AdvReac Nausea Verified 03/20/18 16:18 Anti-Inflamma oxycodone AdvReac Unknown Verified 03/20/18 16:18 - Social History Does the pt smoke?: No Smoking Status: Never smoker Does the pt drink ETOH?: Yes Does the pt have substance abuse?: No - Immunizations Immunizations are current?: Yes - POLST Patient has POLST: No PD ED PE NORMAL - Vitals Vital signs reviewed: Yes - General General: Alert and oriented X 3, No acute distress - Back Back: No CVA TTP, No spinal TTP - Derm Derm: Normal color, Warm and dry - Extremities Extremities: No calf tenderness / cord, Other (Multiple orthopedic chronic abnormalities, he is tender over the lateral left hip and holding it somewhat externally rotated and has pain with internal rotation.) - Neuro Neuro: Alert and oriented X 3, Normal speech - Psych Psych: Normal mood, Normal affect Results - Vitals Vitals: Vital Signs - 24 hr 03/20/18 03/20/18 03/20/18 16:14 17:31 19:05 Temperature 36.8 C Heart Rate 81 80 79 Respiratory 14 17 18 Rate Blood Pressure 147/95 H 154/92 H 127/93 H O2 Saturation 97 97 96 Oxygen O2 Source Room air - Rads (name of study) 2v L hip Radiology: EMP read contemporaneously (No obvious fracture, limited by body habitus though.) CT LLE Radiology: EMP read contemporaneously (No frx, DJD) Departure - Departure Disposition: 01 Home, Self Care Clinical Impression: Pain in limb Condition: Good Record reviewed to determine appropriate education?: Yes Instructions: ED Strain Muscle Ext Prescriptions: HYDROmorphone [Dilaudid] 2 mg PO Q4H #10 tablet Comments: Call your doctor to arrange a follow-up appointment, make the next available appointment. In the interim, return anytime if worse or if new symptoms develop.
--- NOTE | 2018-03-20 18:22 | XRAY Report ---
EXAM: LEFT HIP AND PELVIS RADIOGRAPHY EXAM DATE: 03/20/2018 05:39 PM. HISTORY: Hip injury. COMPARISONS: 10/26/2016. TECHNIQUE: 2 views. FINDINGS: Detail limited by patient body habitus. Bones: No evidence of acute fracture. There is remodeling of the left femoral head and varus angulati on through the left femoral neck. This may be from prior fracture. Joints: No evidence of dislocation. Soft Tissues: No unexpected soft tissue findings. IMPRESSION: Significantly limited bony detail secondary to patient body habitus. No overt evidence of displaced fracture. If there is high clinical concern for acute fracture, CT could be used for furth er evaluation. [facility] Referring Provider Line: [phone] SITE ID: [id number]
--- NOTE | 2018-03-20 19:24 | CT Preliminary Report ---
Exam: CT LOWER EXTREMITY LEFT W/O IMPRESSION: 1. Chronic left hip deformity and lxym-nu-fhslzkys secondary degenerative change stable in appearance . 2. Extensive fatty muscle atrophy about the left hip unchanged from prior. 3. No acute fracture identified. [facility] SITE ID: [id number]
--- NOTE | 2018-03-20 19:24 | CT Report ---
EXAM: LEFT KNEE CT WITHOUT CONTRAST EXAM DATE: 03/20/2018 06:58 PM. CLINICAL HISTORY: Trauma, fall, left hip pain. COMPARISON: CT 10/26/2016. TECHNIQUE: Thin-section axial images were acquired of the knee without contrast. Post-processing: Cor onal and sagittal reformats. Other: None. In accordance with CT protocol optimization, one or more of the following dose reduction techniques w ere utilized for this exam: automated exposure control, adjustment of mA and/or KV based on patient s ize, or use of iterative reconstructive technique. FINDINGS: Bones and articular surfaces: Chronic deformity of the proximal femur is unchanged from prior CT imag ing and may be developmental or related to old trauma. There is associated deformity of the articular surfaces of the left femoral head and acetabulum with mugl-fm-gyulpacn joint space narrowing. [employer] al rotation of the proximal left femur is unchanged from prior. Mild lower lumbar degenerative facet arthropathy. No acute fracture identified. Small left os acetabulum. Soft tissues: Severe fatty atrophy of the left iliopsoas, rectus femoris and to a lesser degree in th e left hip adductors. All unchanged from prior CT. IMPRESSION: 1. Chronic left hip deformity and acfr-wx-exwrwjsx secondary degenerative change stable in appearance . 2. Extensive fatty muscle atrophy about the left hip unchanged from prior. 3. No acute fracture identified. [facility] Referring Provider Line: [phone] SITE ID: [id number]
[2018-03-20 19:38] VITALS: BP 133/98
== END 2018-03-20 21:02 | disposition home or self-care (01) ==
LOC: EDUNIT# → ED 16:10
DX: M25.552 Pain in left hip (principal); M54.9 Dorsalgia, unspecified; W01.0XXA Fall on same level from slipping, tripping and stumbling without subsequent striking against object, initial encounter; Q68.8 Other specified congenital musculoskeletal deformities; M06.9 Rheumatoid arthritis, unspecified
CPT/HCPCS: 96372; 99283

== ENCOUNTER 2018-04-06 12:14 | Emergency (ER) | payer MEDICAID ==
[2018-04-06 12:29] VITALS: BP 149/95
[2018-04-06] MEDS ORDERED: PROMETHAZINE 25 MG TABLET PO STA (12:46)
[2018-04-06] MEDS ORDERED: HYDROmorphone 2 MG TABLET PO STA (12:46)
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
--- NOTE | 2018-04-06 13:23 | CT Report ---
EXAM: CT CERVICAL SPINE WITHOUT CONTRAST DATE: 04/06/2018 01:06 PM. HISTORY: Left jaw and neck inj. COMPARISONS: 01/10/2013. TECHNIQUE: Thin-section axial images were acquired of the cervical spine without contrast. Post-proce ssing: Coronal and sagittal reformats. Other: None. In accordance with CT protocol optimization, one or more of the following dose reduction techniques w ere utilized for this exam: automated exposure control, adjustment of mA and/or KV based on patient s ize, or use of iterative reconstructive technique. FINDINGS: Alignment: There is a gentle reversal of the normal cervical curvature. There is approximately 2 mm a nterolisthesis of C5 on C6, similar to prior. Bones: The bones appear intact without evidence of a fracture. Interspace Levels/Facets: C1-C2: Unremarkable. C2-C3: Unremarkable. C3-C4: Unremarkable. C4-C5: Unremarkable. C5-C6: There is a small anterior endplate osteophyte. There is borderline to mild intervertebral disk space narrowing anteriorly. C6-C7: Unremarkable. C7-T1: Unremarkable. Musculature: Normal. No fatty atrophy. Other: The paravertebral and prevertebral soft tissues are unremarkable. The lung apices are clear. IMPRESSION: No acute abnormality in the cervical spine. [facility] Referring Provider Line: [phone] SITE ID: [id number]
--- NOTE | 2018-04-06 13:23 | CT Preliminary Report ---
Exam: CT CERVICAL SPINE W/O IMPRESSION: No acute abnormality in the cervical spine. [facility] SITE ID: [id number]
--- NOTE | 2018-04-06 13:28 | CT Report ---
EXAM: CT MAXILLOFACIAL WITHOUT CONTRAST EXAM DATE: 04/06/2018 01:06 PM. CLINICAL HISTORY: Left jaw and neck inj. COMPARISONS: None available. TECHNIQUE: Thin-section axial images were acquired of the face without contrast. Post-processing: Cor onal and sagittal reformats. Other: None. In accordance with CT protocol optimization, one or more of the following dose reduction techniques w ere utilized for this exam: automated exposure control, adjustment of mA and/or KV based on patient s ize, or use of iterative reconstructive technique. FINDINGS: Soft Tissue: The infratemporal fossa and parapharyngeal spaces are unremarkable. Orbits: Symmetric and unremarkable. Bones: No fracture or bone lesion. Temporomandibular Joints: The temporomandibular joints are symmetric and normally located. Sinuses: There is polypoid mucosal thickening in the left maxillary sinus. There is mucosal thickenin g in right and left posterior ethmoid air cells. Other: None. IMPRESSION: No acute abnormality. [facility] Referring Provider Line: [phone] SITE ID: [id number]
== END 2018-04-06 13:42 | disposition home or self-care (01) ==
LOC: ED 12:14
DX: S16.1XXA Strain of muscle, fascia and tendon at neck level, initial encounter (principal); S09.11XA Strain of muscle and tendon of head, initial encounter; W01.0XXA Fall on same level from slipping, tripping and stumbling without subsequent striking against object, initial encounter; Y93.83 Activity, rough housing and horseplay; M06.9 Rheumatoid arthritis, unspecified; I49.9 Cardiac arrhythmia, unspecified
CPT/HCPCS: 70486; 72125; 99282; 99283; A9270; Q0169

== ENCOUNTER 2018-04-17 11:17 | Emergency (ER) | payer MEDICAID ==
[2018-04-17] MEDS ORDERED: HYDROmorphone 2 MG/ML VIAL IM STA (12:07)
[2018-04-17] MEDS ORDERED: PROMETHAZINE 25 MG/1 ML VIAL IM STA (12:08)
[2018-04-17 13:16] LABS: BILIRUBIN,URINE NEGATIVE (NEGATIVE); GLUCOSE, URINE (UA) NEGATIVE (NEGATIVE); KETONES,URINE (UA) NEGATIVE (NEGATIVE); LEUKOCYTE ESTERASE, URINE NEGATIVE (NEGATIVE); NITRITE,URINE NEGATIVE (NEGATIVE); OCCULT BLOOD,URINE NEGATIVE (NEGATIVE); PROTEIN,URINE NEGATIVE (NEGATIVE); UROBILINOGEN,URINE 0.2 (NORMAL) E.U./dL (NORMAL)
[2018-04-17 13:23] LABS: CLARITY,URINE CLEAR (CLEAR)
--- NOTE | 2018-04-17 13:49 | ED Physician Documentation ---
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 This morning he noticed that his urine was darker than usual, and he is concerned about his kidneys being the cause of the pain. He denies fever, dysuria, nausea or vomiting. He has had similar pain in the past associated with musculoskeletal etiology. Review of Systems Constitutional: denies: Fever Respiratory: denies: Dyspnea, Cough GI: denies: Abdominal Pain, Nausea, Vomiting : denies: Dysuria, Incontinent Skin: denies: Rash Musculoskeletal: reports: Back pain Neurologic: denies: Focal weakness, Numbness, Headache PD PAST MEDICAL HISTORY - Past Medical History Past Medical History: Yes Cardiovascular: Arrhythmia Respiratory: None Endocrine/Autoimmune: None GI: None : None HEENT: Chronic vision loss Psych: Anxiety Musculoskeletal: Rheumatoid arthritis, Other (Congenital limb deformities.) Derm: None - Past Surgical History Past Surgical History: Yes Ortho: Arthroscopic surgery - Allergies Allergies/Adverse Reactions: Allergies Allergy/AdvReac Type Severity Reaction Status Date / Time ketorolac tromethamine * Allergy Unknown Verified 04/06/18 12:41 [From Toradol] tramadol Allergy Unknown Verified 04/06/18 12:41 acetaminophen [From Vicodin] AdvReac severe Verified 04/06/18 12:41 headache hydrocodone bitartrate * AdvReac severe Verified 04/06/18 12:41 [From Vicodin] headache NSAIDS (Non-Steroidal AdvReac Nausea Verified 04/06/18 12:41 Anti-Inflamma oxycodone AdvReac Unknown Verified 04/17/18 11:23 - Social History Does the pt smoke?: No Smoking Status: Never smoker Does the pt drink ETOH?: Yes Does the pt have substance abuse?: No - Immunizations Immunizations are current?: Yes - POLST Patient has POLST: No PD ED PE NORMAL - Vitals Vital signs reviewed: Yes (hypertensive) - General General: Alert and oriented X 3, Other (Arrives in his wheelchair.) - HEENT HEENT: Atraumatic - Neck Neck: No bony TTP - Cardiac Cardiac: RRR - Respiratory Respiratory: No respiratory distress, Clear bilaterally - Abdomen Abdomen: Soft, Non tender, Other (Rotund abdomen.) - Back Back: No spinal TTP, Other (Paraspinous muscle tenderness in the lower thoracic region bilaterally.) - Derm Derm: No rash - Extremities Extremities: Other (Congenitally small, deformed limbs. Ankle braces bilaterally.) - Neuro Neuro: Alert and oriented X 3, Normal speech Results - Vitals Vitals: Oxygen O2 Source Room air - Labs Labs: Laboratory Tests 04/17/18 12:15 Urine Color YELLOW Urine Clarity CLEAR Urine pH 7.0 Ur Specific [place] 1.020 Urine Protein NEGATIVE Urine Glucose (UA) NEGATIVE Urine Ketones NEGATIVE Urine Occult Blood NEGATIVE Urine Nitrite NEGATIVE Urine Bilirubin NEGATIVE Urine Urobilinogen 0.2 (NORMAL) Ur Leukocyte Esterase NEGATIVE Ur Microscopic Review NOT INDICATED Urine Culture Comments NOT INDICATED PD MEDICAL DECISION MAKING - ED course Complexity details: reviewed old records, reviewed results, re-evaluated patient , considered differential, d/w patient ED course: The patient's presentation is most consistent with musculoskeletal mid back pain. His urinalysis is negative, and I doubt pyelonephritis or kidney stone. Treatment in the emergency department included administration of hydromorphone 1 mg IM with Phenergan 12.5 mg IM. His symptoms improved with the above treatment. I advised him that I would not be prescribing any narcotic pain medication for outpatient use. I discussed with him symptomatic treatment and outpatient follow-up, as well as potentially worrisome signs or symptoms that should prompt reevaluation in the emergency department. - Sepsis Event Vital Signs: Oxygen O2 Source Room air Departure - Departure Disposition: 01 Home, Self Care Clinical Impression: Back pain Qualifiers: Back pain location: thoracic back pain Chronicity: acute Back pain laterality: bilateral Qualified Code(s): M54.6 - Pain in thoracic spine Condition: Stable Instructions: ED Spasm Back No Trauma Follow-Up: Nils Macedo DO [Primary Care Provider] - Comments: Apply ice pack to the sore area in your back intermittently for the next 3 or 4 days. You can use Tylenol or ibuprofen for anti-inflammatory effect. Let pain be your guide to activity level. Follow up with your primary physician within 1-2 weeks. Call to schedule appointment. Return to the emergency department if increasing pain, or otherwise worsening symptoms. Discharge Date/Time: 04/17/18 13:59
[2018-04-17 13:53] VITALS: BP 132/90
== END 2018-04-17 13:59 | disposition home or self-care (01) ==
LOC: ED 11:17
DX: M54.6 Pain in thoracic spine (principal); I49.9 Cardiac arrhythmia, unspecified; Q68.8 Other specified congenital musculoskeletal deformities; M06.9 Rheumatoid arthritis, unspecified
CPT/HCPCS: 81003; 96372; 99283; J1170; 81001; 87086

== ENCOUNTER 2018-04-20 | Outpatient (CLI) | END 2018-04-20 17:20 | disposition critical access hospital (66) | CPT/HCPCS: A0425; A0429 ==

== ENCOUNTER 2018-04-20 17:55 | Emergency (ER) | payer MEDICAID ==
[2018-04-20] MEDS ORDERED: diphenhydrAMINE INJ 50 MG/ML VIAL IM STA (19:26)
[2018-04-20] MEDS ORDERED: PROMETHAZINE 25 MG/1 ML VIAL IM STA (19:26)
[2018-04-20] MEDS ORDERED: SUMAtriptan 6 MG/0.5 ML VIAL SUBQ STA (19:26)
--- NOTE | 2018-04-20 19:30 | CT Report ---
Procedure Date: 04/20/2018 Accession Number: [id number] / [id number] Procedure: CT - Head W/O CPT Code: FULL RESULT: EXAM: CT HEAD EXAM DATE: 04/20/2018 06:46 PM. CLINICAL HISTORY: 33-year-old male, headache COMPARISON: CT HEAD W/O CONT 01/10/2013. TECHNIQUE: Multiaxial CT images were obtained from the foramen magnum to the vertex. Reformats: Coronal. IV contrast: None. In accordance with CT protocol optimization, one or more of the following dose reduction techniques were utilized for this exam: automated exposure control, adjustment of mA and/or KV based on patient size, or use of iterative reconstructive technique. FINDINGS: Parenchyma: No intraparenchymal hemorrhage. No evidence of mass, midline shift, or CT findings of infarction. Camp-white differentiation is distinct. Extraaxial Spaces: Normal for age. No subdural or epidural collections identified. Ventricles: Normal in size and position. Sinuses and Orbits: Imaged paranasal sinuses, orbits, and mastoids show no significant abnormality. Bones: No evidence of fracture or calvarial defect. Other: None. IMPRESSION: No CT evidence of acute intracranial abnormality, specifically no CT evidence of acute infarct, intracranial hemorrhage, mass effect, midline shift, or hydrocephalus. [facility]
--- NOTE | 2018-04-20 20:44 | ED Physician Documentation ---
History of Present Illness - Stated complaint Stated Complaint: HAILE/VISION PROBLEMS - Chief complaint Chief Complaint: General - History obtained from History obtained from: Patient, EMS - History of Present Illness Timing: Today Pain level max: 10 Pain level now: 10 Improved by: nothing Worsened by: movement, light - Additonal information Additional information: Patient is a 33-year-old male who states that he had a sudden onset headache today, that caused him to lose vision in both of his eyes. States the vision is now slowly returning. States that his father has had similar symptoms in the past. He has had one similar episode. No trauma. No numbness or tingling. No difficulty with speech. No neck or back pain. No fever Review of Systems Constitutional: denies: Fever, Chills Eyes: reports: Loss of vision, Photophobia Ears: denies: Ear pain Nose: denies: Rhinorrhea / runny nose, Congestion Respiratory: denies: Cough GI: denies: Abdominal Pain, Nausea, Vomiting, Diarrhea Skin: denies: Rash Musculoskeletal: denies: Neck pain, Back pain Neurologic: denies: Focal weakness, Numbness, Confused, Altered mental status, Head injury, LOC PD PAST MEDICAL HISTORY - Past Medical History Past Medical History: Yes Cardiovascular: Arrhythmia Respiratory: None Endocrine/Autoimmune: None GI: None : None HEENT: Chronic vision loss Psych: Anxiety Musculoskeletal: Rheumatoid arthritis, Other Derm: None - Past Surgical History Past Surgical History: Yes Ortho: Arthroscopic surgery - Present Medications Home Medications: Ambulatory Orders Medication Instructions Recorded Confirmed No Known Home Medications [No 04/20/18 04/20/18 Known Home Medications] - Allergies Allergies/Adverse Reactions: Allergies Allergy/AdvReac Type Severity Reaction Status Date / Time ketorolac tromethamine * Allergy Unknown Verified 04/06/18 12:41 [From Toradol] tramadol Allergy Unknown Verified 04/06/18 12:41 acetaminophen [From Vicodin] AdvReac severe Verified 04/06/18 12:41 headache hydrocodone bitartrate * AdvReac severe Verified 04/06/18 12:41 [From Vicodin] headache NSAIDS (Non-Steroidal AdvReac Nausea Verified 04/06/18 12:41 Anti-Inflamma oxycodone AdvReac Unknown Verified 04/17/18 11:23 - Social History Does the pt smoke?: No Smoking Status: Never smoker Does the pt drink ETOH?: Yes Does the pt have substance abuse?: No - Immunizations Immunizations are current?: Yes - POLST Patient has POLST: No PD ED PE NORMAL - Vitals Vital signs reviewed: Yes - General General: Alert and oriented X 3, No acute distress - HEENT HEENT: Atraumatic, PERRL, EOMI, Ears normal, Moist mucous membranes, Pharynx benign, Other (No temporal artery tenderness) - Neck Neck: Supple, no meningeal sign, No bony TTP - Cardiac Cardiac: RRR, Strong equal pulses - Respiratory Respiratory: No respiratory distress, Clear bilaterally - Abdomen Abdomen: Soft, Non tender, Non distended - Back Back: No spinal TTP - Derm Derm: Warm and dry - Extremities Extremities: Normal ROM s pain - Neuro Neuro: Alert and oriented X 3, 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, No motor deficit, No sensory deficit, Normal speech Eye Opening: Spontaneous Motor: Obeys Commands Verbal: Oriented GCS Score: 15 - Psych Psych: Normal mood, Normal affect Results - Vitals Vitals: Vital Signs - 24 hr 04/20/18 04/20/18 04/20/18 17:59 18:53 20:49 Temperature 36.7 C 36.8 C 36.6 C Heart Rate 83 96 80 Respiratory 18 14 12 Rate Blood Pressure 150/100 H 129/94 H 154/104 H O2 Saturation 99 95 95 Oxygen O2 Source Room air - Rads (name of study) Head CT Radiology: Prelim report reviewed, EMP read contemporaneously, See rad report ( No acute abnormality) PD MEDICAL DECISION MAKING - ED course Complexity details: reviewed results, re-evaluated patient, considered differential, d/w patient ED course: Patient is a 33-year-old male who presents to the emergency department what sounds like a complex migraine tonight. He is well-appearing, nontoxic. Afebrile. No evidence of subarachnoid hemorrhage. Headache resolved with Imitrex, Phenergan and Benadryl. Vision returned to normal. There is a family history of similar episodes. Patient counseled regarding signs and symptoms for which I believe and urgent re-evaluation would be necessary. Patient with good understanding of and agreement to plan and is comfortable going home at this time This document was made in part using voice recognition software. While efforts are made to proofread this document, sound alike and grammatical errors may occur. - Sepsis Event Vital Signs: Vital Signs - 24 hr 04/20/18 04/20/18 04/20/18 17:59 18:53 20:49 Temperature 36.7 C 36.8 C 36.6 C Heart Rate 83 96 80 Respiratory 18 14 12 Rate Blood Pressure 150/100 H 129/94 H 154/104 H O2 Saturation 99 95 95 Oxygen O2 Source Room air Departure - Departure Disposition: Home, Self Care Clinical Impression: Migraine Qualifiers: Migraine type: unspecified Status migrainosus presence: without status migrainosus Intractability: not intractable Qualified Code(s): G43.909 - Migraine, unspecified, not intractable, without status migrainosus Condition: Good Instructions: ED Headache Migraine Follow-Up: Nils Macedo DO [Primary Care Provider] - Within 1 week Comments: Follow up with your doctor in 1 week. Return if you worsen. Your CT is normal tonight. Discharge Date/Time: 04/20/18 20:56
[2018-04-20 20:53] VITALS: BP 154/104
== END 2018-04-20 20:56 | disposition home or self-care (01) ==
LOC: EDUNIT# → ED 17:55
DX: G43.909 Migraine, unspecified, not intractable, without status migrainosus (principal); I49.9 Cardiac arrhythmia, unspecified; M06.9 Rheumatoid arthritis, unspecified
CPT/HCPCS: 70450; 96372; 99283; 99284; J1200

== ENCOUNTER 2018-05-08 21:07 | Outpatient (CLI) | payer MEDICAID | END 2018-05-08 21:08 | disposition critical access hospital (66) | LOC: EMS 21:07 | PROVIDERS: ATTEND Surgery | DX: R51 Headache (principal); H53.131 Sudden visual loss, right eye | CPT/HCPCS: A0425; A0429; A0999 ==

== ENCOUNTER 2018-05-08 21:34 | Emergency (ER) | payer MEDICAID ==
[2018-05-08] MEDS ORDERED: SUMAtriptan 6 MG/0.5 ML VIAL SUBQ STA (22:29)
[2018-05-08] MEDS ORDERED: PROMETHAZINE 25 MG TABLET PO STA (22:29)
[2018-05-08] MEDS ORDERED: diphenhydrAMINE 25 MG CAPSULE PO STA (22:29)
[2018-05-08] MEDS ORDERED: DEXAMETHASONE 10 MG/ML VIAL PO STA (22:30)
--- NOTE | 2018-05-08 22:31 | ED Physician Documentation ---
PD HPI HEADACHE - Stated complaint Stated Complaint: MIGRAINE/DIZZY - Chief complaint Chief Complaint: General - History obtained from History obtained from: Patient - History of Present Illness Timing - onset: Today Timing - onset during: Rest Timing - duration: Hours Timing - details: Abrupt onset, Still present Location: Global Quality: Throbbing Associated symptoms: Nausea, Vision changes Improved by: Rest, Dark room Worsened by: Light Contributing factors: No: Anticoagulated Similar symptoms before: Diagnosis (occular migraine) Recently seen: Emergency Dept - Additional information Additional information: 33-year-old male with a history of arthrogryposis and ocular migraine has developed another ocular migraine today. He is under a lot of stress as he is getting ready to move to [place]. He is apparently his uncle is sold his house he has a new [employer] truck and a 28 foot live-in trailer that was donated to him. PD PAST MEDICAL HISTORY - Past Medical History Past Medical History: Yes Cardiovascular: Arrhythmia Respiratory: None Neuro: Migraines Endocrine/Autoimmune: None GI: None : None HEENT: Chronic vision loss Psych: Anxiety Musculoskeletal: Rheumatoid arthritis, Other Derm: None - Past Surgical History Past Surgical History: Yes Ortho: Arthroscopic surgery - Present Medications Home Medications: Ambulatory Orders Medication Instructions Recorded Confirmed No Known Home Medications [No 04/20/18 04/20/18 Known Home Medications] - Allergies Allergies/Adverse Reactions: Allergies Allergy/AdvReac Type Severity Reaction Status Date / Time ketorolac tromethamine * Allergy Unknown Verified 05/08/18 21:47 [From Toradol] tramadol Allergy Unknown Verified 05/08/18 21:47 acetaminophen [From Vicodin] AdvReac severe Verified 05/08/18 21:47 headache hydrocodone bitartrate * AdvReac severe Verified 05/08/18 21:47 [From Vicodin] headache NSAIDS (Non-Steroidal AdvReac Nausea Verified 05/08/18 21:47 Anti-Inflamma oxycodone AdvReac Unknown Verified 05/08/18 21:47 - Social History Does the pt smoke?: No Smoking Status: Never smoker Does the pt drink ETOH?: Yes Does the pt have substance abuse?: No - Immunizations Immunizations are current?: Yes - POLST Patient has POLST: No PD ED PE NORMAL - Vitals Vital signs reviewed: Yes (hypertensive) - General General: Alert and oriented X 3, No acute distress, Well developed/nourished - HEENT HEENT: Atraumatic, PERRL, EOMI - Neck Neck: Supple, no meningeal sign, No bony TTP - Cardiac Cardiac: RRR, No murmur - Respiratory Respiratory: No respiratory distress, Clear bilaterally - Derm Derm: Normal color, Warm and dry, No rash - Extremities Extremities: Other (multiple extremity deformities (arthrogiposis)) - Neuro Neuro: No motor deficit, No sensory deficit Eye Opening: Spontaneous Motor: Obeys Commands Verbal: Oriented GCS Score: 15 - Psych Psych: Normal mood, Normal affect Results - Vitals Vitals: Vital Signs - 24 hr 05/08/18 05/08/18 05/09/18 21:44 23:25 00:05 Temperature 37.0 C Heart Rate 86 73 Respiratory 18 16 16 Rate Blood Pressure 127/102 H 121/75 O2 Saturation 98 100 Oxygen O2 Source Room air PD MEDICAL DECISION MAKING - ED course Complexity details: reviewed old records, reviewed results, re-evaluated patient , considered differential, d/w patient, d/w family ED course: 33-year-old male with ocular migraine is administered sumatriptan subcutaneously as well as Phenergan Benadryl and dexamethasone orally. He does develop some heartburn and this is relieved with use of viscous lidocaine and Mylanta. - Sepsis Event Vital Signs: Vital Signs - 24 hr 05/08/18 05/08/18 05/09/18 21:44 23:25 00:05 Temperature 37.0 C Heart Rate 86 73 Respiratory 18 16 16 Rate Blood Pressure 127/102 H 121/75 O2 Saturation 98 100 Oxygen O2 Source Room air Departure - Departure Disposition: 01 Home, Self Care Clinical Impression: Ocular migraine Condition: Stable Instructions: ED Headache Migraine Follow-Up: Nils Macedo DO [Primary Care Provider] -
[2018-05-08] MEDS ORDERED: CHERRY SYRUP 10 ML UDC PO ONE (22:51)
[2018-05-08] MEDS ORDERED: MAG HYDROX/AL HYDROX/SIMETH 30 ML UDC PO STA (23:33)
[2018-05-08] MEDS ORDERED: LIDOCAINE VISCOUS 2% 15 ML UDC MM STA (23:33)
[2018-05-09 00:06] VITALS: BP 121/75
== END 2018-05-09 00:51 | disposition home or self-care (01) ==
LOC: EDUNIT# → ED 21:34
DX: G43.809 Other migraine, not intractable, without status migrainosus (principal); I10 Essential (primary) hypertension
CPT/HCPCS: 96372; 99283; A9270; Q0169

== ENCOUNTER 2018-12-10 16:49 | Emergency (ER) | payer MEDICAID ==
--- NOTE | 2018-12-10 18:10 | XRAY Report ---
Reason: cough Procedure Date: 12/10/2018 Accession Number: [id number] / [id number] Procedure: XR - Chest 2 View X-Ray CPT Code: 32352 FULL RESULT: EXAM: CHEST RADIOGRAPHY EXAM DATE: 12/10/2018 05:34 PM. CLINICAL HISTORY: Cough. COMPARISON: Chest radiograph from 02/07/2018, 11/10/2016. TECHNIQUE: 2 views. FINDINGS: Lungs/Pleura: Lung volumes are diminished. No focal airspace opacities. No pleural effusion or pneumothorax. Mediastinum: There is mild enlargement of the cardiac silhouette, likely accentuated by diminished lung volumes. Mediastinal contour and pulmonary vasculature are within normal limits. Other: None. IMPRESSION: No acute cardiopulmonary abnormality. RADIA
--- NOTE | 2018-12-10 20:45 | ED Physician Documentation ---
History of Present Illness - Stated complaint Stated Complaint: SOA/SORE THROAT - Chief complaint Chief Complaint: Resp - History obtained from History obtained from: Patient - History of Present Illness Timing: How many hours ago (40) Pain level now: 5 Improved by: nothing Worsened by: movement, coughing - Additonal information Additional information: "my bones are on fire", "my chest is on fire". c/o subjective fevers (did not take temperature at home). sinus congestion with thick and bloody sinus discharge. cough, dyspnea. Review of Systems Constitutional: reports: Fever (subjective at home (although he is febrile in triage tonight)), Chills, Myalgias, Fatigue, Sweats Ears: reports: Ear pain Nose: reports: Rhinorrhea / runny nose, Congestion, Sinus pressure / pain Throat: reports: Sore throat Respiratory: reports: Dyspnea, Cough GI: denies: Abdominal Pain, Vomiting, Diarrhea : denies: Dysuria, Frequency Skin: denies: Rash Neurologic: reports: Generalized weakness, Headache PD PAST MEDICAL HISTORY - Past Medical History Cardiovascular: Arrhythmia Respiratory: None Neuro: Migraines Endocrine/Autoimmune: None GI: None : None HEENT: Chronic vision loss Psych: Anxiety Musculoskeletal: Rheumatoid arthritis, Other Derm: None - Past Surgical History Past Surgical History: Yes Ortho: Arthroscopic surgery - Present Medications Home Medications: Ambulatory Orders Medication Instructions Recorded Confirmed Albuterol Sulf [Ventolin Hfa 1 - 2 puffs INH Q4HR PRN #1 inhaler 12/10/18 Inhaler] Azithromycin [Zithromax] 250 mg PO DAILY #4 tablet 12/10/18 Oseltamivir [Tamiflu] 75 mg PO BID #9 capsule 12/10/18 guaiFENesin/CODEINE [Robitussin AC] 5 ml PO Q6H PRN #60 udc 12/10/18 - Allergies Allergies/Adverse Reactions: Allergies Allergy/AdvReac Type Severity Reaction Status Date / Time ketorolac tromethamine * Allergy Unknown Verified 12/10/18 17:14 [From Toradol] tramadol Allergy Unknown Verified 12/10/18 17:14 acetaminophen [From Vicodin] AdvReac severe Verified 12/10/18 17:14 headache hydrocodone bitartrate * AdvReac severe Verified 12/10/18 17:14 [From Vicodin] headache NSAIDS (Non-Steroidal AdvReac Nausea Verified 12/10/18 17:14 Anti-Inflamma oxycodone AdvReac Unknown Verified 12/10/18 17:14 - Social History Does the pt smoke?: No Smoking Status: Never smoker Does the pt drink ETOH?: Yes Does the pt have substance abuse?: No - Immunizations Immunizations are current?: Yes - POLST Patient has POLST: No PD ED PE NORMAL - Vitals Vital signs reviewed: Yes - General General: Alert and oriented X 3, No acute distress, Well developed/nourished - HEENT HEENT: Moist mucous membranes, Pharynx benign, Other (right TM obscured by cerumen, left TM normal) - Neck Neck: Supple, no meningeal sign - Cardiac Cardiac: RRR, No murmur - Respiratory Respiratory: No respiratory distress, Clear bilaterally - Abdomen Abdomen: Soft, Non tender - Derm Derm: Normal color, Warm and dry Results - Vitals Vitals: Vital Signs - 24 hr 12/10/18 12/10/18 12/10/18 17:10 19:14 19:43 Temperature 36.7 C 39.0 C H 37.6 C H Heart Rate 111 H 118 H Respiratory 18 16 Rate Blood Pressure 137/92 H 152/95 H O2 Saturation 100 96 12/10/18 12/10/18 12/10/18 21:00 21:36 21:54 Temperature 39.5 C H Heart Rate 108 H 11 L 117 H Respiratory 16 18 20 Rate Blood Pressure 154/97 H 168/109 H O2 Saturation 98 96 Oxygen O2 Source Room air - Rads (name of study) chest xray Radiology: Prelim report reviewed, See rad report PD MEDICAL DECISION MAKING - ED course Complexity details: reviewed results, re-evaluated patient, considered differential, d/w patient ED course: patient refused influenza swab; given high fever in triage without obvious fei rce and increased risk of influenza complications (due to high BMI, per CDC criteria), it is reasonable to treat empirically even if flu swab were performed and negative. Similarly, given his c/o bloody, thick discolored sinus discharge with this fever, will also cover with zithromax for possible bacterial infection. His lungs are clear but he requests albuterol for subjective dyspnea; he says albuterol tends to help with this and reduce his coughing, and thus neb given and rx for albuterol MDI provided. Departure - Departure Disposition: Home, Self Care Clinical Impression: Viral syndrome Sinusitis Qualifiers: Sinusitis location: unspecified location Chronicity: acute Recurrence: not specified as recurrent Qualified Code(s): J01.90 - Acute sinusitis, unspecified Condition: Good Instructions: ED Sinusitis Abx Tx, ED Viral Syndrome Follow-Up: [facility] [Provider Group] [facility] [Provider Group] Prescriptions: Albuterol Sulf [Ventolin Hfa Inhaler] 1 - 2 puffs INH Q4HR PRN #1 inhaler PRN Reason: Shortness Of Air/Wheezing Azithromycin [Zithromax] 250 mg PO DAILY #4 tablet guaiFENesin/CODEINE [Robitussin AC] 5 ml PO Q6H PRN #60 udc PRN Reason: Cough Oseltamivir [Tamiflu] 75 mg PO BID #9 capsule Discharge Date/Time: 12/10/18 22:08
[2018-12-10] MEDS ORDERED: guaiFENesin/CODEINE 5 ML UDC PO STA (21:04)
[2018-12-10] MEDS ORDERED: AZITHROMYCIN 250 MG TABLET PO STA (21:04)
[2018-12-10] MEDS ORDERED: ALBUTEROL NEB 2.5 MG/3 ML INH STA (21:05)
[2018-12-10] MEDS ORDERED: OSELTAMIVIR 75 MG CAPSULE PO STA (21:05)
[2018-12-10 21:54] VITALS: BP 168/109
== END 2018-12-10 22:08 | disposition home or self-care (01) ==
LOC: ED 16:49
DX: B34.9 Viral infection, unspecified (principal); J01.90 Acute sinusitis, unspecified
CPT/HCPCS: 71046; 94640; 94664; 99283; A9270; 80053; 83690; 85025

== ENCOUNTER 2018-12-14 21:41 | Outpatient (CLI) | payer MEDICAID | END 2018-12-14 21:42 | disposition EMS.NT | LOC: EMS 21:41 | PROVIDERS: ATTEND Surgery | DX: M79.671 Pain in right foot (principal); M79.644 Pain in right finger(s); W20.8XXA Other cause of strike by thrown, projected or falling object, initial encounter ==

== ENCOUNTER 2018-12-16 16:26 | Emergency (ER) | payer MEDICAID ==
[2018-12-16 16:34] VITALS: BP 137/96
--- NOTE | 2018-12-16 18:13 | ED Physician Documentation ---
PD HPI MHE - Stated complaint Stated Complaint: MHE - Chief complaint Chief Complaint: MHE - History obtained from History obtained from: Patient - History of Present Illness Primary symptom: Anxiety Timing - onset: How many days ago (several) Pain level max: 0 Pain level now: 0 Contributing factors: Family ( wants a divorce) Similar symptoms before: Diagnosis (anxiety) Recently seen: Not recently seen Review of Systems Constitutional: denies: Fever, Chills Respiratory: denies: Cough GI: denies: Nausea, Vomiting, Diarrhea Skin: denies: Rash Musculoskeletal: denies: Neck pain, Back pain Neurologic: denies: Headache PD PAST MEDICAL HISTORY - Past Medical History Past Medical History: Yes Cardiovascular: Arrhythmia Respiratory: None Neuro: Migraines Endocrine/Autoimmune: None GI: None : None HEENT: Chronic vision loss Psych: Anxiety Musculoskeletal: Rheumatoid arthritis, Other Derm: None - Past Surgical History Past Surgical History: Yes Ortho: Arthroscopic surgery - Present Medications Home Medications: Ambulatory Orders Medication Instructions Recorded Confirmed Albuterol Sulf [Ventolin Hfa 1 - 2 puffs INH Q4HR PRN #1 inhaler 12/10/18 Inhaler] Azithromycin [Zithromax] 250 mg PO DAILY #4 tablet 12/10/18 Oseltamivir [Tamiflu] 75 mg PO BID #9 capsule 12/10/18 guaiFENesin/CODEINE [Robitussin AC] 5 ml PO Q6H PRN #60 udc 12/10/18 LORazepam [Ativan] 1 mg PO Q8H PRN #7 tablet 12/16/18 - Allergies Allergies/Adverse Reactions: Allergies Allergy/AdvReac Type Severity Reaction Status Date / Time ketorolac tromethamine * Allergy Unknown Verified 12/10/18 17:14 [From Toradol] tramadol Allergy Unknown Verified 12/10/18 17:14 acetaminophen [From Vicodin] AdvReac severe Verified 12/10/18 17:14 headache hydrocodone bitartrate * AdvReac severe Verified 12/10/18 17:14 [From Vicodin] headache NSAIDS (Non-Steroidal AdvReac Nausea Verified 12/10/18 17:14 Anti-Inflamma oxycodone AdvReac Unknown Verified 12/10/18 17:14 - Social History Does the pt smoke?: No Smoking Status: Never smoker Does the pt drink ETOH?: Yes Does the pt have substance abuse?: No - Immunizations Immunizations are current?: Yes - POLST Patient has POLST: No PD ED PE NORMAL - Vitals Vital signs reviewed: Yes - General General: Alert and oriented X 3, No acute distress - HEENT HEENT: Moist mucous membranes - Neck Neck: Supple, no meningeal sign - Cardiac Cardiac: RRR, Strong equal pulses - Respiratory Respiratory: No respiratory distress, Clear bilaterally - Abdomen Abdomen: Soft, Non tender, Non distended - Back Back: No CVA TTP, No spinal TTP - Derm Derm: Warm and dry, No rash - Neuro Neuro: Alert and oriented X 3 Results - Vitals Vitals: Vital Signs - 24 hr 12/16/18 16:30 Temperature 36.8 C Heart Rate 84 Respiratory 18 Rate Blood Pressure 137/96 H O2 Saturation 98 Oxygen O2 Source Room air PD MEDICAL DECISION MAKING - ED course Complexity details: reviewed results, re-evaluated patient, considered differential, d/w patient ED course: 33 year old male with anxiety. No SI/HI. SW consulted and setup with outpatient followup. Pt contracts for safety. will rx a small amount ativan and follow up with PCP. Patient counseled regarding signs and symptoms for which I believe and urgent re-evaluation would be necessary. Patient with good understanding of and agreement to plan and is comfortable going home at this time This document was made in part using voice recognition software. While efforts are made to proofread this document, sound alike and grammatical errors may occur. Departure - Departure Disposition: 01 Home, Self Care Clinical Impression: Anxiety Condition: Good Instructions: ED Stress React Follow-Up: Nils Macedo DO [Primary Care Provider] - Within 3 Days Prescriptions: LORazepam [Ativan] 1 mg PO Q8H PRN #7 tablet PRN Reason: anxiety Comments: Return if you worsen. Follow-up as directed by social work today. You need to follow-up with your primary care doctor for further evaluation. Do not drive or operate heavy machinery while taking the Ativan. Crisis Line and is available to talk to someone [email or web address] is also available to chat with someone online if you prefer. There are also many resources on this website and apps for your phone to help with your mental health You can also text the word START to [phone] to chat with someome via text. Discharge Date/Time: 12/16/18 18:59
[2018-12-16] MEDS ORDERED: LORazepam 0.5 MG TABLET PO STA (18:43)
== END 2018-12-16 18:59 | disposition home or self-care (01) ==
LOC: ED 16:26
DX: F41.9 Anxiety disorder, unspecified (principal)
CPT/HCPCS: 99283; A9270

== ENCOUNTER 2018-12-23 13:17 | Emergency (ER) | payer MEDICAID ==
[2018-12-23 13:39] VITALS: BP 159/122
[2018-12-23] MEDS ORDERED: LORazepam 0.5 MG TABLET PO STA (15:12)
--- NOTE | 2018-12-23 15:23 | ED Physician Documentation ---
PD HPI MHE - Stated complaint Stated Complaint: MHE - Chief complaint Chief Complaint: MHE - History obtained from History obtained from: Patient, Friend - History of Present Illness Primary symptom: Out of meds (out of ativan. Feeling anxious. Going through a divorce.) Timing - onset: How many weeks ago (1) Pain level max: 0 Pain level now: 0 Contributing factors: Family, Sig other Similar symptoms before: Diagnosis (anxiety) Recently seen: Emergency Dept (last week for same) Review of Systems Constitutional: denies: Fever, Chills Skin: denies: Rash Musculoskeletal: denies: Neck pain, Back pain Neurologic: denies: Headache Psychiatric: denies: Suicidal, Homicidal PD PAST MEDICAL HISTORY - Past Medical History Cardiovascular: Arrhythmia Respiratory: None Neuro: Migraines Endocrine/Autoimmune: None GI: None : None HEENT: Chronic vision loss Psych: Anxiety Musculoskeletal: Rheumatoid arthritis, Other Derm: None - Past Surgical History Past Surgical History: Yes Ortho: Arthroscopic surgery - Present Medications Home Medications: Ambulatory Orders Medication Instructions Recorded Confirmed Albuterol Sulf [Ventolin Hfa 1 - 2 puffs INH Q4HR PRN #1 inhaler 12/10/18 Inhaler] Azithromycin [Zithromax] 250 mg PO DAILY #4 tablet 12/10/18 Oseltamivir [Tamiflu] 75 mg PO BID #9 capsule 12/10/18 guaiFENesin/CODEINE [Robitussin AC] 5 ml PO Q6H PRN #60 udc 12/10/18 LORazepam [Ativan] 1 mg PO Q8H PRN #7 tablet 12/16/18 LORazepam [Ativan] 1 mg PO Q8H PRN #7 tablet 12/23/18 - Allergies Allergies/Adverse Reactions: Allergies Allergy/AdvReac Type Severity Reaction Status Date / Time ketorolac tromethamine * Allergy Unknown Verified 12/23/18 13:39 [From Toradol] tramadol Allergy Unknown Verified 12/23/18 13:39 acetaminophen [From Vicodin] AdvReac severe Verified 12/23/18 13:39 headache hydrocodone bitartrate * AdvReac severe Verified 12/23/18 13:39 [From Vicodin] headache NSAIDS (Non-Steroidal AdvReac Nausea Verified 12/23/18 13:39 Anti-Inflamma oxycodone AdvReac Unknown Verified 12/23/18 13:39 - Social History Does the pt smoke?: No Smoking Status: Never smoker Does the pt drink ETOH?: Yes Does the pt have substance abuse?: No - Immunizations Immunizations are current?: Yes - POLST Patient has POLST: No PD ED PE NORMAL - Vitals Vital signs reviewed: Yes - General General: Alert and oriented X 3, No acute distress - HEENT HEENT: Moist mucous membranes - Neck Neck: Supple, no meningeal sign - Cardiac Cardiac: RRR - Respiratory Respiratory: No respiratory distress, Clear bilaterally - Derm Derm: Warm and dry - Neuro Neuro: Alert and oriented X 3 Results - Vitals Vitals: Oxygen O2 Source Room air PD MEDICAL DECISION MAKING - ED course Complexity details: considered differential, d/w patient ED course: 33-year-old male with increasing anxiety. Will prescribe a small amount of Ativan and have him follow-up with his doctor for further refills. Not suicidal. Not homicidal. Patient counseled regarding signs and symptoms for which I believe and urgent re-evaluation would be necessary. Patient with good understanding of and agreement to plan and is comfortable going home at this time This document was made in part using voice recognition software. While efforts are made to proofread this document, sound alike and grammatical errors may occur. Departure - Departure Disposition: 01 Home, Self Care Clinical Impression: Anxiety Condition: Good Instructions: ED Stress React Follow-Up: Nils Macedo DO [Primary Care Provider] - Within 3 Days Prescriptions: LORazepam [Ativan] 1 mg PO Q8H PRN #7 tablet PRN Reason: Anxiety Comments: Further refills of Ativan will need to come from your doctor. Follow-up with your doctor on Friday as scheduled. Crisis Line and is available to talk to someone [email or web address] is also available to chat with someone online if you prefer. There are also many resources on this website and apps for your phone to help with your mental health You can also text the word START to [phone] to chat with someome via text. Discharge Date/Time: 12/23/18 15:29
== END 2018-12-23 15:29 | disposition home or self-care (01) ==
LOC: ED 13:17
DX: F41.9 Anxiety disorder, unspecified (principal)
CPT/HCPCS: 99283

== ENCOUNTER 2019-01-11 16:57 | Emergency (ER) | payer MEDICAID ==
--- NOTE | 2019-01-11 18:57 | ED Physician Documentation ---
PD HPI LOWER EXT INJURY - Stated complaint Stated Complaint: FOOT PX - Chief complaint Chief Complaint: Ext Problem - History obtained from History obtained from: Patient - History of Present Illness PD HPI LOW EXT INJURY LOCATION: Left, Knee, Lower leg, Ankle, Foot Type of injury: Blunt / blow (he was exiting ortho office and his leg/foot got caught between door and his scooter as he said someone did not hold door open for him and it closed unexpectedly as he was exiting.) Timing - onset: Today Timing - details: Abrupt onset, Still present Worsened by: Moving, Palpating Associated symptoms: No: Weakness, Numbness Similar symptoms before: Has not had sx before (not in those areas - wears prosthesis usually.) Review of Systems Cardiac: denies: Chest pain / pressure GI: denies: Abdominal Pain Musculoskeletal: denies: Neck pain, Back pain Neurologic: denies: Focal weakness, Numbness, Altered mental status, Headache, Head injury PD PAST MEDICAL HISTORY - Past Medical History Cardiovascular: Arrhythmia Respiratory: None Neuro: Migraines Endocrine/Autoimmune: None GI: None : None HEENT: Chronic vision loss Psych: Anxiety Musculoskeletal: Rheumatoid arthritis, Other Derm: None - Past Surgical History Past Surgical History: Yes Ortho: Arthroscopic surgery - Present Medications Home Medications: Ambulatory Orders Medication Instructions Recorded Confirmed Albuterol Sulf [Ventolin Hfa 1 - 2 puffs INH Q4HR PRN #1 inhaler 12/10/18 Inhaler] LORazepam [Ativan] 1 mg PO Q8H PRN #7 tablet 12/16/18 LORazepam [Ativan] 1 mg PO Q8H PRN #7 tablet 12/23/18 - Allergies Allergies/Adverse Reactions: Allergies Allergy/AdvReac Type Severity Reaction Status Date / Time ketorolac tromethamine * Allergy Unknown Verified 01/11/19 17:20 [From Toradol] tramadol Allergy Unknown Verified 01/11/19 17:20 acetaminophen [From Vicodin] AdvReac severe Verified 01/11/19 17:20 headache hydrocodone bitartrate * AdvReac severe Verified 01/11/19 17:20 [From Vicodin] headache NSAIDS (Non-Steroidal AdvReac Nausea Verified 01/11/19 17:20 Anti-Inflamma oxycodone AdvReac Unknown Verified 01/11/19 17:20 - Social History Does the pt smoke?: No Smoking Status: Never smoker Does the pt drink ETOH?: Yes Does the pt have substance abuse?: No - Immunizations Immunizations are current?: Yes - POLST Patient has POLST: No PD ED PE NORMAL - Vitals Vital signs reviewed: Yes - General General: Alert and oriented X 3, No acute distress, Well developed/nourished - Derm Derm: Normal color, Warm and dry - Extremities Extremities: Other (brace and shoe lift on left leg, removed with help of large animal husbandry technician. Bruising medial calf and redness/tender medial proximal foot and ankle. Knee is not bruised, but has pain with ROM, as he says it got twisted. No gross laxity with stress testing. ) - Neuro Neuro: No motor deficit, No sensory deficit, Other (good pulses in foot. ) Results - Vitals Vitals: Oxygen O2 Source Room air - Rads (name of study) ankle and lower leg Radiology: Prelim report reviewed (no fractures, congenital deformities, foot fusion, and arthritic changes notes. ), EMP read contemporaneously, See rad report PD MEDICAL DECISION MAKING - ED course Complexity details: considered differential, d/w patient Departure - Departure Disposition: 01 Home, Self Care Clinical Impression: Foot contusion Qualifiers: Encounter type: initial encounter Laterality: left Qualified Code(s): S90.32XA - Contusion of left foot, initial encounter Knee strain Qualifiers: Encounter type: initial encounter Laterality: left Qualified Code(s): S86.912A - Strain of unspecified muscle(s) and tendon(s) at lower leg level, left leg, initial encounter Condition: Stable Record reviewed to determine appropriate education?: Yes Follow-Up: Nils Macedo DO [Primary Care Provider] - Comments: Boot orthosis in place of your normal brace for now to provide a more cushioned support while the bruising and swelling go down. Continue usual medications. There are no fractures seen on your ankle leg or knee. I would anticipate improvement over the next several days to week. Discharge Date/Time: 01/11/19 22:01
[2019-01-11] MEDS ORDERED: PROMETHAZINE 25 MG/1 ML VIAL IM STA (19:03)
[2019-01-11] MEDS ORDERED: HYDROmorphone 2 MG/ML VIAL IM STA ×2 (19:03→21:20)
--- NOTE | 2019-01-11 20:54 | XRAY Report ---
Reason: crush injury with door Procedure Date: 01/11/2019 Accession Number: [id number] / [id number] Procedure: XR - Foot 3 View LT CPT Code: FULL RESULT: EXAM: LEFT FOOT RADIOGRAPHY EXAM DATE: 01/11/2019 08:13 PM. CLINICAL HISTORY: Crush injury with door. COMPARISON: XR FOOT 2 VIEWS 03/12/2010 9:40 AM. TECHNIQUE: 3 views. FINDINGS: Bones: Deformities similar to previous exam. No acute fracture or other bone lesion. Joints: Fusion of the hindfoot. Soft Tissues: Soft tissue swelling. IMPRESSION: Soft tissue swelling. RADIA
--- NOTE | 2019-01-11 20:59 | XRAY Report ---
Reason: crush injury with door Procedure Date: 01/11/2019 Accession Number: [id number] / [id number] Procedure: XR - Tib/Fib LT CPT Code: FULL RESULT: EXAM: LEFT TIBIA/FIBULA RADIOGRAPHY EXAM DATE: 01/11/2019 07:55 PM. CLINICAL HISTORY: Crush injury with door. COMPARISON: None. TECHNIQUE: 2 views. FINDINGS: Bones: No definite acute fracture or other bone lesion. Joints: Degenerative changes. 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 No effusion. Low riding patella. Prominent degenerative changes of the ankle. Hindfoot fusion. Soft Tissues: Unremarkable. IMPRESSION: Chronic findings. No acute disease. RADIA
[2019-01-11 22:04] VITALS: BP 136/91
== END 2019-01-11 22:01 | disposition home or self-care (01) ==
LOC: ED 16:57
DX: S90.32XA Contusion of left foot, initial encounter (principal); S86.912A Strain of unspecified muscle(s) and tendon(s) at lower leg level, left leg, initial encounter; W23.0XXA Caught, crushed, jammed, or pinched between moving objects, initial encounter; Y92.531 Health care provider office as the place of occurrence of the external cause
CPT/HCPCS: 73590; 73630; 96372; 99283; J1170

== ENCOUNTER 2019-01-30 21:15 | Outpatient (CLI) | payer SELFPAY | END 2019-01-30 21:16 | disposition EMS.NT | LOC: EMS 21:15 | PROVIDERS: ATTEND Surgery | DX: R45.0 Nervousness (principal); R07.9 Chest pain, unspecified; R20.2 Paresthesia of skin ==

== ENCOUNTER 2019-02-15 14:31 | Emergency (ER) | payer MEDICAID ==
--- NOTE | 2019-02-15 15:37 | ED Physician Documentation ---
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 No LOC, no headache. C/O severe sharp sacral pain.) PD PAST MEDICAL HISTORY - Past Medical History Cardiovascular: Arrhythmia Respiratory: None Neuro: Migraines Endocrine/Autoimmune: None GI: None : None HEENT: Chronic vision loss Psych: Anxiety Musculoskeletal: Rheumatoid arthritis, Other Derm: None - Past Surgical History Past Surgical History: Yes Ortho: Arthroscopic surgery - Present Medications Home Medications: Ambulatory Orders Medication Instructions Recorded Confirmed RX: Albuterol Sulf [Ventolin Hfa 1 - 2 puffs INH Q4HR PRN #1 inhaler 12/10/18 Inhaler] - Allergies Allergies/Adverse Reactions: Allergies Allergy/AdvReac Type Severity Reaction Status Date / Time ketorolac tromethamine * Allergy Unknown Verified 02/15/19 14:36 [From Toradol] tramadol Allergy Unknown Verified 02/15/19 14:36 acetaminophen [From Vicodin] AdvReac severe Verified 02/15/19 14:36 headache hydrocodone bitartrate * AdvReac severe Verified 02/15/19 14:36 [From Vicodin] headache NSAIDS (Non-Steroidal AdvReac Nausea Verified 02/15/19 14:36 Anti-Inflamma oxycodone AdvReac Unknown Verified 02/15/19 14:36 - Social History Does the pt smoke?: No Smoking Status: Never smoker Does the pt drink ETOH?: Yes Does the pt have substance abuse?: No - Immunizations Immunizations are current?: Yes - POLST Patient has POLST: No PD ED PE NORMAL - Vitals Vital signs reviewed: Yes - General General: Alert and oriented X 3, No acute distress, Other (Congenital MSK abnormalities) - HEENT HEENT: PERRL, EOMI - Neck Neck: Supple, no meningeal sign, No bony TTP - Back Back: Other (TTP sacrum) - Neuro Neuro: Alert and oriented X 3, Normal speech - Psych Psych: Normal mood, Normal affect Results - Vitals Vitals: Vital Signs - 24 hr 02/15/19 02/15/19 02/15/19 14:32 15:20 18:35 Temperature 37.4 C Heart Rate 79 78 Respiratory 20 18 18 Rate Blood Pressure 130/93 H 135/78 H O2 Saturation 98 99 Oxygen O2 Source Room air - Rads (name of study) Sacrum XR Radiology: EMP read contemporaneously (NAD) PD MEDICAL DECISION MAKING - ED course ED course: Given PO dilaudid here, but no rx, see prior charts/notes, concern for drug abuse. Departure - Departure Disposition: 01 Home, Self Care Clinical Impression: Fall, accidental, Sacral contusion Condition: Good Record reviewed to determine appropriate education?: Yes Instructions: ED Low Back Pain Injury Comments: Call your doctor to arrange a follow-up appointment, make the next available appointment. In the interim, return anytime if worse or if new symptoms develop. Discharge Date/Time: 02/15/19 18:35
[2019-02-15] MEDS ORDERED: HYDROmorphone 2 MG TABLET PO STA (15:42)
[2019-02-15] MEDS ORDERED: ONDANSETRON ODT 4 MG TABLET TL STA (16:01)
[2019-02-15] MEDS ORDERED: PROMETHAZINE 25 MG/1 ML VIAL IM STA (16:02)
--- NOTE | 2019-02-15 17:43 | XRAY Report ---
Reason: back inj Procedure Date: 02/15/2019 Accession Number: [id number] / [id number] Procedure: XR - Sacrum/Coccyx CPT Code: FULL RESULT: EXAM: SACRUM AND COCCYX RADIOGRAPHY EXAM DATE: 02/15/2019 05:00 PM. HISTORY: Status post fall from ladder, tailbone injury. COMPARISONS: HIP W/PELVIS 2-3V LT 03/20/2018 5:13 PM SACROILIAC JOINTS 09/07/2016 9:10 PM SACRUM/COCCYX 09/07/2016 9:10 PM. TECHNIQUE: 2 views. FINDINGS: Alignment: There is an underlying contour to the distal sacrum similar to prior exam unchanged. Bones: No convincing acute fracture evident on either view. The hips and pelvis also appear intact. Joints: No significant hip osteoarthritis or malalignment. Soft Tissues: Unremarkable. IMPRESSION: 1. No acute fracture visualized. 2. Undulating contour of the distal sacrum is unchanged and likely a normal variant. RADIA
[2019-02-15 18:36] VITALS: BP 135/78
== END 2019-02-15 18:35 | disposition home or self-care (01) ==
LOC: ED 14:31
DX: S30.0XXA Contusion of lower back and pelvis, initial encounter (principal); W11.XXXA Fall on and from ladder, initial encounter; Q68.8 Other specified congenital musculoskeletal deformities
CPT/HCPCS: 72220; 96372; 99283; A9270

== ENCOUNTER 2019-04-01 16:28 | Emergency (ER) | payer MEDICAID ==
[2019-04-01] MEDS ORDERED: HYDROmorphone 2 MG TABLET PO STA (17:34)
--- NOTE | 2019-04-01 18:11 | XRAY Report ---
Reason: Right hand pain after falling. Procedure Date: 04/01/2019 Accession Number: [id number] / [id number] Procedure: XR - Hand 3 View RT CPT Code: FULL RESULT: EXAM: RIGHT HAND RADIOGRAPHY EXAM DATE: 04/01/2019 05:54 PM. CLINICAL HISTORY: Right hand pain after falling. COMPARISON: WRIST 4 VIEW LT 05/17/2015 10:23 PM. TECHNIQUE: 3 views. FINDINGS: Bones: No fracture or focal bony lesion. Joints: No evidence of dislocation. The hand is contracted. Soft Tissues: No unexpected soft tissue findings. IMPRESSION: No evidence of fracture or dislocation. RADIA
--- NOTE | 2019-04-01 18:28 | ED Physician Documentation ---
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 The incident occurred about 2 hours prior to arrival. He fell onto his right side, impacting primarily his right hand and his right knee. He is concerned mostly about the pain and swelling of his right hand. Despite not being up-to-date on tetanus status he refuses tetanus booster, stating that he gets fever and swelling at the site of injection for 3 days following administration of tetanus booster. Review of Systems Constitutional: denies: Fever Cardiac: denies: Chest pain / pressure Respiratory: denies: Dyspnea GI: denies: Abdominal Pain Skin: reports: Abrasion (s) (right knee.) Musculoskeletal: reports: Extremity pain (right hand.). 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.) Derm: None - Past Surgical History Past Surgical History: Yes Ortho: Arthroscopic surgery - Present Medications Home Medications: Ambulatory Orders Medication Instructions Recorded Confirmed Albuterol Sulf [Ventolin Hfa 1 - 2 puffs INH Q4HR PRN #1 inhaler 12/10/18 Inhaler] HYDROmorphone [Dilaudid] 2 mg PO BID PRN #12 tablet 04/01/19 - Allergies Allergies/Adverse Reactions: Allergies Allergy/AdvReac Type Severity Reaction Status Date / Time ketorolac tromethamine * Allergy Unknown Verified 04/01/19 16:42 [From Toradol] tramadol Allergy Unknown Verified 04/01/19 16:42 acetaminophen [From Vicodin] AdvReac severe Verified 04/01/19 16:42 headache hydrocodone bitartrate * AdvReac severe Verified 04/01/19 16:42 [From Vicodin] headache NSAIDS (Non-Steroidal AdvReac Nausea Verified 04/01/19 16:42 Anti-Inflamma oxycodone AdvReac Unknown Verified 04/01/19 16:42 - Social History Does the pt smoke?: No Smoking Status: Never smoker Does the pt drink ETOH?: Yes Does the pt have substance abuse?: No - Immunizations Immunizations are current?: Yes - POLST Patient has POLST: No PD ED PE NORMAL - Vitals Vital signs reviewed: Yes (normal) - General General: Alert and oriented X 3, Other (Sitting in his wheelchair with his normal posture.) - HEENT HEENT: Atraumatic - Neck Neck: No bony TTP - Cardiac Cardiac: RRR - Respiratory Respiratory: No respiratory distress, Other (There is superficial abrasion noted on the right side of the chest in the posterior axillary line. There is no bony step-off palpated and no appreciable tenderness.) - Abdomen Abdomen: Soft, Non tender - Back Back: No spinal TTP - Derm Derm: No rash - Extremities Extremities: Other (Distal extremities are poorly developed and have con tractures. The right hand is tender to palpation along the ulnar aspect, with slight soft tissue swelling. There is no break in the integument. Distal light touch sensation is intact.) - Neuro Neuro: Alert and oriented X 3, Normal speech Results - Vitals Vitals: Vital Signs - 24 hr 04/01/19 04/01/19 16:33 18:45 Temperature 36.7 C 36.7 C Heart Rate 76 84 Respiratory 18 17 Rate Blood Pressure 130/85 H 147/98 H O2 Saturation 98 96 Oxygen O2 Source Room air - Rads (name of study) right hand Radiology: Prelim report reviewed, EMP read contemporaneously, See rad report (No evidence of fracture or dislocation.) Procedures - Splint (location) right upper extremity Splint applied by: Physician Type of splint: Fiberglass, Short arm Other: Patient tolerated well, No complications, Neurovascular intact PD MEDICAL DECISION MAKING - ED course Complexity details: reviewed results, re-evaluated patient, considered d ifferential, d/w patient ED course: The patient's presentation is significant for contusion to the right hand and abrasions to the right knee and chest wall secondary to falling onto gravel. An x-ray of his right hand reveals no acute bony abnormality. Despite no fracture being identified the patient was insistent that I place a fiberglass splint so that he could continue to use the stub of his right arm to help prop himself when he stands from his wheelchair. He states that his right hand is too painful to bear weight on it without a supportive device such as a splint. I placed a three-inch fiberglass short arm splint. Dilaudid 2 mg is administered orally. I discussed with him the expected course of injury, symptomatic treatment and outpatient follow-up, as well as potentially worrisome signs or symptoms that should prompt reevaluation in the emergency department. Departure - Departure Disposition: 01 Home, Self Care Clinical Impression: Fall, accidental Qualifiers: Encounter type: initial encounter Qualified Code(s): W19.XXXA - Unspecified fall, initial encounter Contusion of right hand Qualifiers: Encounter type: initial encounter Qualified Code(s): S60.221A - Contusion of right hand, initial encounter Abrasion of right knee Qualifiers: Encounter type: initial encounter Qualified Code(s): S80.211A - Abrasion, right knee, initial encounter Condition: Stable Instructions: ED Abrasion, ED Contusion Hand Follow-Up: Nils Macedo DO [Primary Care Provider] - Prescriptions: HYDROmorphone [Dilaudid] 2 mg PO BID PRN #12 tablet PRN Reason: Pain Comments: Apply ice pack to your right hand intermittently for the next 2 or 3 days. You can use Dilaudid as prescribed as needed for pain. Follow-up with your primary physician within 1 week. Call to schedule appointment. Return to the emergency department if increasing pain, or otherwise worsening symptoms. Discharge Date/Time: 04/01/19 18:47
[2019-04-01 18:46] VITALS: BP 147/98
== END 2019-04-01 18:47 | disposition home or self-care (01) ==
LOC: ED 16:28
DX: S60.221A Contusion of right hand, initial encounter (principal); S80.211A Abrasion, right knee, initial encounter; S20.311A Abrasion of right front wall of thorax, initial encounter; W01.198A Fall on same level from slipping, tripping and stumbling with subsequent striking against other object, initial encounter; Y92.830 Public park as the place of occurrence of the external cause; Q68.1 Congenital deformity of finger(s) and hand; Q66.9 Congenital deformity of feet, unspecified; M06.9 Rheumatoid arthritis, unspecified
CPT/HCPCS: 29125; 73130; 99283; A9270

== ENCOUNTER 2019-05-24 20:10 | Emergency (ER) | payer MEDICAID ==
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
[2019-05-24] MEDS ORDERED: TRIAMCINOLONE 40 MG/ML VIAL IM STA (21:38)
[2019-05-24] MEDS ORDERED: BUPIVACAINE 0.5%-EPI 1:200000 PF 10 ML VIAL SUBQ STA (21:38)
[2019-05-24] MEDS ORDERED: oxyCODONE 5 MG TABLET PO STA (21:39)
[2019-05-24] MEDS ORDERED: METHOCARBAMOL 500 MG TABLET PO STA (21:39)
[2019-05-24] MEDS ORDERED: PROMETHAZINE 25 MG TABLET PO STA (21:39)
[2019-05-24] MEDS ORDERED: HYDROmorphone 2 MG TABLET PO STA (22:01)
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
[2019-05-24 23:52] VITALS: BP 146/105
== END 2019-05-24 23:51 | disposition home or self-care (01) ==
LOC: ED 20:10
DX: S29.012A Strain of muscle and tendon of back wall of thorax, initial encounter (principal); M54.2 Cervicalgia; V28.0XXA Motorcycle driver injured in noncollision transport accident in nontraffic accident, initial encounter; Y92.410 Unspecified street and highway as the place of occurrence of the external cause
CPT/HCPCS: 20552; 72040; 72125; 72128; 99283; 99284; A9270; Q0169

== ENCOUNTER 2019-06-14 11:23 | Emergency (ER) | payer MEDICAID ==
--- NOTE | 2019-06-14 12:41 | ED Physician Documentation ---
History of Present Illness - Stated complaint Stated Complaint: TOOTH PAIN - Chief complaint Chief Complaint: Heent - History obtained from History obtained from: Patient - Additonal information Additional information: Patient is a 34-year-old male with history of arthrogryposis, extremely well- known to the ED, presenting with right lower posterior tooth pain that has been present over the past several days without inciting incident, trauma, or known fracture. Patient has not been to the dentist for several years. Patient reports exquisite tenderness, as well as surrounding gum changes of swelling and erythema without bleeding or drainage. No difficulties in chewing, swallowing, or breathing. No fever. No other improving or worsening factors noted. Review of Systems Constitutional: denies: Fever Throat: reports: Dental pain / toothache, Oral lesions / sores PD PAST MEDICAL HISTORY - Past Medical History Cardiovascular: Arrhythmia Respiratory: None Neuro: Migraines Endocrine/Autoimmune: None GI: None : None HEENT: Chronic vision loss Psych: Anxiety Musculoskeletal: Rheumatoid arthritis, Other Derm: None - Past Surgical History Past Surgical History: Yes Ortho: Arthroscopic surgery - Present Medications Home Medications: Ambulatory Orders Medication Instructions Recorded Confirmed Albuterol Sulf [Ventolin Hfa 1 - 2 puffs INH Q4HR PRN #1 inhaler 12/10/18 Inhaler] HYDROmorphone [Dilaudid] 2 mg PO BID PRN #12 tablet 04/01/19 Methocarbamol [Robaxin] 500 mg PO Q6H PRN #30 tablet 05/24/19 dexAMETHasone [Decadron] 4 mg PO DAILY #5 tablet 05/24/19 Amox/Clav 875/125 [Augmentin] 1 each PO Q12H 7 Days tablet 06/14/19 Chlorhexidine Gluconate [Peridex] 15 ml MM BID 7 Days mouthwash 06/14/19 - Allergies Allergies/Adverse Reactions: Allergies Allergy/AdvReac Type Severity Reaction Status Date / Time ketorolac tromethamine * Allergy Unknown Verified 05/24/19 20:19 [From Toradol] tramadol Allergy Unknown Verified 05/24/19 20:19 acetaminophen [From Vicodin] AdvReac severe Verified 05/24/19 20:19 headache hydrocodone bitartrate * AdvReac severe Verified 05/24/19 20:19 [From Vicodin] headache NSAIDS (Non-Steroidal AdvReac Nausea Verified 05/24/19 20:19 Anti-Inflamma oxycodone AdvReac Unknown Verified 05/24/19 20:19 - Social History Does the pt smoke?: No Smoking Status: Never smoker Does the pt drink ETOH?: Yes Does the pt have substance abuse?: No - Immunizations Immunizations are current?: Yes - POLST Patient has POLST: No PD ED PE NORMAL - Vitals Vital signs reviewed: Yes - General General: Alert and oriented X 3, No acute distress, Well developed/nourished - HEENT HEENT: Atraumatic, Moist mucous membranes. No: Dentition benign (Area of exposed tenderness to right lower wisdom tooth with surrounding gum swelling and mild erythema but no bleeding or drainage. Diffuse dental caries and multiple missing teeth otherwise. No other changes to indicate pharyngitis, tonsillitis, peritonsillar abscess or other infection.) - Neck Neck: Supple, no meningeal sign - Respiratory Respiratory: No respiratory distress - Derm Derm: Normal color, Warm and dry, No rash - Neuro Neuro: Alert and oriented X 3, Other (Baseline) Results - Vitals Vitals: Vital Signs - 24 hr 06/14/19 11:27 Temperature 36.1 C L Heart Rate 87 Respiratory 16 Rate Blood Pressure 140/105 H O2 Saturation 100 Oxygen O2 Source Room air PD MEDICAL DECISION MAKING - ED course Complexity details: considered differential, d/w patient ED course: Patient presenting with dental pain and concerns for dental abscess to right lower wisdom tooth. Patient also complains of mild facial swelling, but do not find evidence of facial abscess present. Do not find other complications including pharyngitis, tonsillitis, peritonsillar abscess, Joel's angina, or concerns for retropharyngeal abscess or pneumonia at this time. Patient does not appear to be experiencing systemic illness. Discussed use of oral antibiotics, mouthwash, and other oral hygiene and care. Also discussed return precautions and need for dentistry follow-up. Patient voiced understanding and is comfortable with discharge plan. Departure - Departure Disposition: 01 Home, Self Care Clinical Impression: Dental abscess Condition: Good Instructions: ED Abscess Dental Follow-Up: Nils Macedo DO [Primary Care Provider] - Within 3 Days your,dentist [Other] - Within 3 Days Prescriptions: Amox/Clav 875/125 [Augmentin] 1 each PO Q12H 7 Days tablet Chlorhexidine Gluconate [Peridex] 15 ml MM BID 7 Days mouthwash Comments: Recommend good oral hygiene including use of mouthwash, flossing, brushing regularly. Please take antibiotic as prescribed to treat dental abscess. Please take with small amount of food to avoid upset stomach. May also apply ice externally to help with pain and swelling. Follow-up with dentistry in next 1 to 2 days, as well as primary care physician next 2 to 3 days. Return to ED sooner if experience worsening symptoms or have other concerns.
[2019-06-14] MEDS ORDERED: AMOX/CLAV 875 MG/125 MG TABLET PO STA (12:53)
[2019-06-14 12:58] VITALS: BP 137/92
== END 2019-06-14 12:57 | disposition home or self-care (01) ==
LOC: ED 11:23
DX: K04.7 Periapical abscess without sinus (principal)
CPT/HCPCS: 99282; 99284; A9270

== ENCOUNTER 2019-09-18 13:02 | Emergency (ER) | payer MEDICAID ==
[2019-09-18 13:08] VITALS: BP 145/93
[2019-09-18] MEDS ORDERED: BACITRACIN OINT TOP STA (13:09)
--- NOTE | 2019-09-18 13:12 | ED Physician Documentation ---
History of Present Illness - Stated complaint Stated Complaint: LAC RT ARM - Chief complaint Chief Complaint: Laceration - History obtained from History obtained from: Patient - History of Present Illness Timing: Today Pain level max: 0 Pain level now: 0 Improved by: nothing Worsened by: nothing - Additonal information Additional information: Patient with an abrasion to the right forearm while working on a car today. Td up-to-date. Review of Systems Constitutional: denies: Fever, Chills Skin: reports: Abrasion (s) PD PAST MEDICAL HISTORY - Past Medical History Cardiovascular: Arrhythmia Respiratory: None Neuro: Migraines Endocrine/Autoimmune: None GI: None : None HEENT: Chronic vision loss Psych: Anxiety Musculoskeletal: Rheumatoid arthritis, Other Derm: None - Past Surgical History Past Surgical History: Yes Ortho: Arthroscopic surgery - Present Medications Home Medications: Ambulatory Orders Medication Instructions Recorded Confirmed Albuterol Sulf [Ventolin Hfa 1 - 2 puffs INH Q4HR PRN #1 inhaler 12/10/18 Inhaler] HYDROmorphone [Dilaudid] 2 mg PO BID PRN #12 tablet 04/01/19 Methocarbamol [Robaxin] 500 mg PO Q6H PRN #30 tablet 05/24/19 dexAMETHasone [Decadron] 4 mg PO DAILY #5 tablet 05/24/19 Amox/Clav 875/125 [Augmentin] 1 each PO Q12H 7 Days tablet 06/14/19 Chlorhexidine Gluconate [Peridex] 15 ml MM BID 7 Days mouthwash 06/14/19 - Allergies Allergies/Adverse Reactions: Allergies Allergy/AdvReac Type Severity Reaction Status Date / Time ketorolac tromethamine * Allergy Unknown Verified 05/24/19 20:19 [From Toradol] tramadol Allergy Unknown Verified 05/24/19 20:19 acetaminophen [From Vicodin] AdvReac severe Verified 05/24/19 20:19 headache hydrocodone bitartrate * AdvReac severe Verified 05/24/19 20:19 [From Vicodin] headache NSAIDS (Non-Steroidal AdvReac Nausea Verified 05/24/19 20:19 Anti-Inflamma oxycodone AdvReac Unknown Verified 05/24/19 20:19 - Social History Does the pt smoke?: No Smoking Status: Never smoker Does the pt drink ETOH?: Yes Does the pt have substance abuse?: No - Immunizations Immunizations are current?: Yes - POLST Patient has POLST: No PD ED PE NORMAL - Vitals Vital signs reviewed: Yes - General General: Alert and oriented X 3, No acute distress - HEENT HEENT: Moist mucous membranes - Neck Neck: Supple, no meningeal sign - Derm Derm: Warm and dry - Extremities Extremities: Other (R forearm 2cm abrasion) - Neuro Neuro: Alert and oriented X 3 - Psych Psych: Normal mood, Normal affect Results - Vitals Vitals: Vital Signs - 24 hr 09/18/19 13:05 Temperature 37 C Heart Rate 99 Respiratory 18 Rate Blood Pressure 145/93 H O2 Saturation 100 Oxygen O2 Source Room air PD MEDICAL DECISION MAKING - ED course Complexity details: considered differential, d/w patient ED course: Wounds cleansed and bandaged. Warnings of infection and instructions on wound care given at bedside. Also counseled on how to minimize scarring. Patient counseled regarding signs and symptoms for which I believe and urgent re- evaluation would be necessary. Patient with good understanding of and agreement to plan and is comfortable going home at this time This document was made in part using voice recognition software. While efforts are made to proofread this document, sound alike and grammatical errors may occur. Departure - Departure Disposition: 01 Home, Self Care Clinical Impression: Abrasion Condition: Good Instructions: ED Abrasion Follow-Up: Nils Macedo DO [Primary Care Provider] - Within 1 week (for wound check) Comments: Return if you worsen. Follow up with your doctor for wound check in 1 week
== END 2019-09-18 13:16 | disposition home or self-care (01) ==
LOC: ED 13:02
DX: S50.811A Abrasion of right forearm, initial encounter (principal); X58.XXXA Exposure to other specified factors, initial encounter; Y93.89 Activity, other specified
CPT/HCPCS: 99282; A9270

== ENCOUNTER 2019-09-24 18:00 | Emergency (ER) | payer MEDICAID ==
[2019-09-24 18:14] VITALS: BP 138/94
[2019-09-24] MEDS ORDERED: ALBUTEROL NEB 2.5 MG/3 ML INH STA (19:48)
[2019-09-24] MEDS ORDERED: CHERRY SYRUP 10 ML UDC PO ONE (19:59)
[2019-09-24] MEDS ORDERED: DEXAMETHASONE 10 MG/ML VIAL PO STA (19:59)
--- NOTE | 2019-09-24 20:20 | ED Physician Documentation ---
History of Present Illness - Stated complaint Stated Complaint: SOA - Chief complaint Chief Complaint: Resp - Additonal information Additional information: This is a 34-year-old male with a history of asthma, arthrogryposis, who presents with cough, runny nose, sore throat, and some shortness of breath. Patient states his symptoms began in the last 48 hours, and he has had some wheezing and cough which is been somewhat productive of white-yellow sputum, and slight tactile fever. He denies abdominal pain or vomiting, he has not had any chest pain. He has asthma but he is unable to find his inhaler. He is also prone to having pneumonia so he wanted to get checked out Review of Systems Throat: reports: Sore throat Cardiac: denies: Chest pain / pressure Respiratory: reports: Cough GI: denies: Abdominal Pain, Vomiting PD PAST MEDICAL HISTORY - Past Medical History Past Medical History: Yes Cardiovascular: Arrhythmia Respiratory: None Neuro: Migraines Endocrine/Autoimmune: None GI: None : None HEENT: Chronic vision loss Psych: Anxiety Musculoskeletal: Rheumatoid arthritis, Other Derm: None - Past Surgical History Past Surgical History: Yes Ortho: Arthroscopic surgery - Present Medications Home Medications: Ambulatory Orders Medication Instructions Recorded Confirmed Albuterol Sulf [Ventolin Hfa 1 - 2 puffs INH Q4HR PRN #1 inhaler 09/24/19 Inhaler] Azithromycin [Zithromax] 0 mg PO DAILY #6 tablet 09/24/19 - Allergies Allergies/Adverse Reactions: Allergies Allergy/AdvReac Type Severity Reaction Status Date / Time ketorolac tromethamine * Allergy Unknown Verified 09/24/19 18:14 [From Toradol] tramadol Allergy Unknown Verified 09/24/19 18:14 acetaminophen [From Vicodin] AdvReac severe Verified 09/24/19 18:14 headache hydrocodone bitartrate * AdvReac severe Verified 09/24/19 18:14 [From Vicodin] headache NSAIDS (Non-Steroidal AdvReac Nausea Verified 09/24/19 18:14 Anti-Inflamma oxycodone AdvReac Unknown Verified 09/24/19 18:14 - Social History Does the pt smoke?: No Smoking Status: Never smoker Does the pt drink ETOH?: Yes Does the pt have substance abuse?: No - Immunizations Immunizations are current?: Yes - POLST Patient has POLST: No PD ED PE NORMAL - Vitals Vital signs reviewed: Yes - General General: Alert and oriented X 3 - HEENT HEENT: Atraumatic, Other (Posterior pharynx mildly erythematous, no exudate.) - Neck Neck: Supple, no meningeal sign - Cardiac Cardiac: RRR - Respiratory Respiratory: Other (Normal work of breathing, mild end-expiratory wheeze bilaterally.) - Abdomen Abdomen: Non distended - Extremities Extremities: Other (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 After duoneb pt feels greatly improved. He was given a dose of steroids and albuterol refill. CXR shows no PNA at this time. Pt is very concerned about developing PNA given he has had a history of recurrent pneumonia. He asked for a Z-pack that he would not use unless symptoms persist and are not improving with supportive care for 7-10 days. I provided this and explained that with significant worsening he needs re-evaluation, and at this time he appears to have a URI with mild asthma exacerbation. He is very well appearing at this time with clear lungs and he is eager to go home. Pt was discharged. Departure - Departure Disposition: Home, Self Care Clinical Impression: Asthma exacerbation Qualifiers: Asthma severity: unspecified severity Asthma persistence: unspecified Qualified Code(s): J45.901 - Unspecified asthma with (acute) exacerbation URI (upper respiratory infection) Qualifiers: URI type: unspecified URI Qualified Code(s): J06.9 - Acute upper respiratory infection, unspecified Condition: Good Follow-Up: Nils Macedo DO [Primary Care Provider] - Prescriptions: Albuterol Sulf [Ventolin Hfa Inhaler] 1 - 2 puffs INH Q4HR PRN #1 inhaler PRN Reason: Shortness Of Air/Wheezing Azithromycin [Zithromax] 0 mg PO DAILY #6 tablet Comments: You appear to have upper respiratory viral infection as well as some mild worsening of your asthma. The steroid we gave you should last for the next several days. You may use the albuterol inhaler as needed for wheezing or shortness of breath. If you are having continued worsening symptoms despite this treatment, you may start the azithromycin antibiotic. Come back to the emergency department if you develop worsening shortness of breath, chest pain, or other concerning symptoms. Discharge Date/Time: 09/24/19 20:52
--- NOTE | 2019-09-24 20:42 | XRAY Report ---
Reason: cough Procedure Date: 09/24/2019 Accession Number: [id number] / [id number] Procedure: XR - Chest 2 View X-Ray CPT Code: 29054 Final Report FULL RESULT: EXAM: CHEST RADIOGRAPHY EXAM DATE: 09/24/2019 08:08 PM. CLINICAL HISTORY: Cough. COMPARISON: CHEST 2 VIEW 12/10/2018 5:18 PM. TECHNIQUE: 2 views. FINDINGS: Lungs/Pleura: No focal opacities evident. No pleural effusion. No pneumothorax. Normal volumes. Mediastinum: Heart and mediastinal contours are unremarkable. Other: None. IMPRESSION: No acute cardiopulmonary findings radiographically. [facility]
== END 2019-09-24 20:52 | disposition home or self-care (01) ==
LOC: ED 18:00
DX: J45.901 Unspecified asthma with (acute) exacerbation (principal); J06.9 Acute upper respiratory infection, unspecified; Z87.01 Personal history of pneumonia (recurrent)
CPT/HCPCS: 71046; 94640; 99283; A9270

== ENCOUNTER 2019-09-25 13:24 | Emergency (ER) | payer MEDICAID ==
[2019-09-25] MEDS ORDERED: PROMETHAZINE 25 MG/1 ML VIAL IM STA (13:58)
[2019-09-25] MEDS ORDERED: HYDROmorphone 1 MG/ML CARPUJECT IM STA (13:58)
--- NOTE | 2019-09-25 13:59 | ED Physician Documentation ---
History of Present Illness - Stated complaint Stated Complaint: FALL/JAW INJURY - Chief complaint Chief Complaint: General - History obtained from History obtained from: Patient (34-year-old gentleman with arthrogryposis fell out of his wheelchair last night onto the right side hitting a bed frame very hard. He has severe right sided jaw pain and moderate neck and right shoulder pain. No persistent headache. No other injuries.) Review of Systems Constitutional: reports: Reviewed and negative Cardiac: reports: Reviewed and negative Respiratory: reports: Reviewed and negative PD PAST MEDICAL HISTORY - Past Medical History Cardiovascular: Arrhythmia Respiratory: None Neuro: Migraines Endocrine/Autoimmune: None GI: None : None HEENT: Chronic vision loss Psych: Anxiety Musculoskeletal: Rheumatoid arthritis, Other Derm: None - Past Surgical History Past Surgical History: Yes Ortho: Arthroscopic surgery - Present Medications Home Medications: Ambulatory Orders Medication Instructions Recorded Confirmed Albuterol Sulf [Ventolin Hfa 1 - 2 puffs INH Q4HR PRN #1 inhaler 09/24/19 Inhaler] Azithromycin [Zithromax] 0 mg PO DAILY #6 tablet 09/24/19 - Allergies Allergies/Adverse Reactions: Allergies Allergy/AdvReac Type Severity Reaction Status Date / Time ketorolac tromethamine * Allergy Unknown Verified 09/25/19 13:28 [From Toradol] tramadol Allergy Unknown Verified 09/25/19 13:28 acetaminophen [From Vicodin] AdvReac severe Verified 09/25/19 13:28 headache hydrocodone bitartrate * AdvReac severe Verified 09/25/19 13:28 [From Vicodin] headache NSAIDS (Non-Steroidal AdvReac Nausea Verified 09/25/19 13:28 Anti-Inflamma oxycodone AdvReac Unknown Verified 09/25/19 13:28 - Social History Does the pt smoke?: No Smoking Status: Never smoker Does the pt drink ETOH?: Yes Does the pt have substance abuse?: No - Immunizations Immunizations are current?: Yes - POLST Patient has POLST: No PD ED PE NORMAL - Vitals Vital signs reviewed: Yes - General General: Alert and oriented X 3, No acute distress - HEENT HEENT: PERRL, EOMI, Other (Quite tender to the right side of the jaw with some swelling but no deformity. He seems to be talking comfortably but on examination has difficulty opening and closing the mouth.) - Neck Neck: Other (Mild upper and mid neck tenderness) - Extremities Extremities: Other (Diffuse right shoulder tenderness, cannot abduct at all passively or actively but seems to be moving it okay when not focusing on that i.e. he talks with his hands and moves it okay when reaching for his phone.) - Neuro Neuro: Alert and oriented X 3, Normal speech Results - Vitals Vitals: Vital Signs - 24 hr 09/25/19 13:28 Temperature 37 C Heart Rate 104 H Respiratory 17 Rate Blood Pressure 147/94 H O2 Saturation 99 Oxygen O2 Source Room air - Rads (name of study) 3v R shoulder XR Radiology: EMP read contemporaneously (NAD) CT Face and C spine Radiology: EMP read contemporaneously (Chronic changes only including sinus polyp and degenerative changes without evidence of acute fractures) Departure - Departure Disposition: 01 Home, Self Care Clinical Impression: Contusion of mandibular joint area Qualifiers: Encounter type: initial encounter Qualified Code(s): S00.83XA - Contusion of other part of head, initial encounter Neck strain Qualifiers: Encounter type: initial encounter Qualified Code(s): S16.1XXA - Strain of muscle, fascia and tendon at neck level, initial encounter Contusion of right shoulder Qualifiers: Encounter type: initial encounter Qualified Code(s): S40.011A - Contusion of right shoulder, initial encounter Condition: Good Instructions: ED Head Injury Closed Comments: Call your doctor to arrange a follow-up appointment, make the next available appointment. In the interim, return anytime if worse or if new symptoms develop. Your blood pressure was elevated today on check into the emergency department. This does not mean that you have hypertension, it is a common phenomenon to come to the emergency department and have elevated blood pressure. I recommend that you see your primary care physician within the week to have it rechecked when you are feeling better.
--- NOTE | 2019-09-25 16:18 | XRAY Report ---
Reason: R shoulder inj Procedure Date: 09/25/2019 Accession Number: [id number] / [id number] Procedure: XR - Shoulder 3 View RT CPT Code: Final Report FULL RESULT: EXAM: RIGHT SHOULDER RADIOGRAPHY EXAM DATE: 09/25/2019 03:44 PM. CLINICAL HISTORY: R shoulder inj. COMPARISON: CHEST 2 VIEW 12/10/2018 5:18 PM. TECHNIQUE: 3 views. FINDINGS: Bones: There is a chronic appearing deformity of the right humeral head with flattening and concavity of the articular surface. This appearance appears unchanged. Joints: No subluxation or dislocation. Soft tissues: Negative for right pneumothorax. No abnormal soft tissue calcification. IMPRESSION: 1. Chronic deformity to the contour of the right humeral head appears unchanged. 2. No acute fracture or subluxation. [facility]
--- NOTE | 2019-09-25 16:20 | CT Report ---
Reason: neck inj Procedure Date: 09/25/2019 Accession Number: [id number] / [id number] Procedure: CT - CERVICAL SPINE WO CPT Code: Final Report FULL RESULT: EXAM: CT CERVICAL SPINE WITHOUT CONTRAST DATE: 09/25/2019 03:50 PM. HISTORY: 34-year-old presenting after a fall with neck pain. Evaluate for cervical pathology. COMPARISONS: CERVICAL SPINE W/O 05/24/2019 10:36 PM. TECHNIQUE: Thin-section axial images were acquired of the cervical spine without contrast. Post-processing: Coronal and sagittal reformats. Other: None. In accordance with CT protocol optimization, one or more of the following dose reduction techniques were utilized for this exam: automated exposure control, adjustment of mA and/or KV based on patient size, or use of iterative reconstructive technique. FINDINGS: Alignment: Straightening of the normal cervical lordosis. No scoliosis or spondylolisthesis. Bones: No fracture or bone lesion. Interspace Levels/Facets: C1-C2: No spinal canal stenosis. No neural foraminal narrowing. C2-C3: Tiny central disk protrusion similar to CT cervical spine 05/24/2019. No spinal canal stenosis. No neural foraminal narrowing. C3-C4: No spinal canal stenosis. No neural foraminal narrowing. C4-C5: Slight posterior disk osteophyte complex. No spinal canal stenosis. No neural foraminal narrowing. C5-C6: Anterior spurring. Slight posterior disk osteophyte complex. No spinal canal stenosis. No definite neural foraminal narrowing. C6-C7: Bilateral uncovertebral osteophyte and minimal bilateral arthritic facet disease. No spinal canal stenosis. Mild bilateral neural foraminal narrowing. C7-T1: Unremarkable. Musculature: Normal. No fatty atrophy. Other: Punctate calcification seen within the tonsillar crypts. Otherwise the visualized pharynx and larynx appear normal. Visualized thyroid appears normal. The lung apices are clear. IMPRESSION: 1. No acute fracture or traumatic subluxation seen. 2. Straightening of the normal cervical lordosis. 3. Minimal multilevel degenerative changes that appear similar to CT cervical spine 05/24/2019, as detailed above. RAD[facility]
--- NOTE | 2019-09-25 16:23 | CT Report ---
Reason: R jaw inj Procedure Date: 09/25/2019 Accession Number: [id number] / [id number] Procedure: CT - MAXILLOFACIAL WO CPT Code: Final Report FULL RESULT: EXAM: CT MAXILLOFACIAL WITHOUT CONTRAST EXAM DATE: 09/25/2019 03:50 PM. CLINICAL HISTORY: Right-sided jaw pain post fall. COMPARISONS: Previous exam of 04/06/2018. TECHNIQUE: Thin-section axial images were acquired of the face without contrast. Post-processing: Coronal and sagittal reformats. Other: None. In accordance with CT protocol optimization, one or more of the following dose reduction techniques were utilized for this exam: automated exposure control, adjustment of mA and/or KV based on patient size, or use of iterative reconstructive technique. FINDINGS: Soft Tissue: The infratemporal fossa and parapharyngeal spaces are unremarkable. Orbits: Symmetric and unremarkable. Bones: No fracture or bone lesion. Temporomandibular Joints: The temporomandibular joints are symmetric and normally located. Sinuses: There are polyps versus mucous retention cyst seen in the left maxillary, ethmoid and sphenoid sinuses. Other: None. IMPRESSION: Stable appearance of polyps versus mucous retention cyst noted in the left maxillary, ethmoid and sphenoid sinuses, otherwise unremarkable exam. [facility]
[2019-09-25 16:32] VITALS: BP 143/94
== END 2019-09-25 16:33 | disposition home or self-care (01) ==
LOC: ED 13:24
DX: S16.1XXA Strain of muscle, fascia and tendon at neck level, initial encounter (principal); S00.83XA Contusion of other part of head, initial encounter; S40.011A Contusion of right shoulder, initial encounter; W05.0XXA Fall from non-moving wheelchair, initial encounter; R03.0 Elevated blood-pressure reading, without diagnosis of hypertension; Q68.8 Other specified congenital musculoskeletal deformities; M06.9 Rheumatoid arthritis, unspecified; M50.21 Other cervical disc displacement, high cervical region; M47.812 Spondylosis without myelopathy or radiculopathy, cervical region; M25.78 Osteophyte, vertebrae
CPT/HCPCS: 70486; 72125; 73030; 96372; 99284; J1170

== ENCOUNTER 2019-12-15 18:22 | Emergency (ER) | payer MEDICAID ==
--- NOTE | 2019-12-15 19:02 | ED Physician Documentation ---
History of Present Illness - Stated complaint Stated Complaint: BACK INJ - Chief complaint Chief Complaint: Trauma Ext - History obtained from History obtained from: Patient (the patient is a 34 y/o male who presents to the ed w a cc of right shoulder pain after a tool box fell on top of him while he was trying to lift it off the top of a truck. he denies hitting his head or any loc and he denies any neck pain, he denies taking any anticoagulants.) Review of Systems Constitutional: reports: Reviewed and negative Eyes: reports: Reviewed and negative Ears: reports: Reviewed and negative Nose: reports: Reviewed and negative Throat: reports: Reviewed and negative Cardiac: reports: Reviewed and negative Respiratory: reports: Reviewed and negative GI: reports: Reviewed and negative : reports: Reviewed and negative Skin: reports: Reviewed and negative Musculoskeletal: reports: Other (right shoulder pain) Neurologic: reports: Reviewed and negative Psychiatric: reports: Reviewed and negative Endocrine: reports: Reviewed and negative Immunocompromised: reports: Reviewed and negative PD PAST MEDICAL HISTORY - Past Medical History Cardiovascular: Arrhythmia Respiratory: None Neuro: Migraines Endocrine/Autoimmune: None GI: None : None HEENT: Chronic vision loss Psych: Anxiety Musculoskeletal: Rheumatoid arthritis, Other Derm: None - Past Surgical History Past Surgical History: Yes Ortho: Arthroscopic surgery - Present Medications Home Medications: Ambulatory Orders Medication Instructions Recorded Confirmed Albuterol Sulf [Ventolin Hfa 1 - 2 puffs INH Q4HR PRN #1 inhaler 09/24/19 Inhaler] Azithromycin [Zithromax] 0 mg PO DAILY #6 tablet 09/24/19 - Allergies Allergies/Adverse Reactions: Allergies Allergy/AdvReac Type Severity Reaction Status Date / Time ketorolac tromethamine * Allergy Unknown Verified 12/15/19 18:45 [From Toradol] tramadol Allergy Unknown Verified 12/15/19 18:45 acetaminophen [From Vicodin] AdvReac severe Verified 12/15/19 18:45 headache hydrocodone bitartrate * AdvReac severe Verified 12/15/19 18:45 [From Vicodin] headache NSAIDS (Non-Steroidal AdvReac Nausea Verified 12/15/19 18:45 Anti-Inflamma oxycodone AdvReac Unknown Verified 12/15/19 18:45 - Social History Does the pt smoke?: No Smoking Status: Never smoker Does the pt drink ETOH?: Yes Does the pt have substance abuse?: No - Immunizations Immunizations are current?: Yes - POLST Patient has POLST: No PD ED PE NORMAL - Vitals Vital signs reviewed: Yes - General General: Alert and oriented X 3, No acute distress, Well developed/nourished - HEENT HEENT: Atraumatic, PERRL, EOMI, Ears normal, Moist mucous membranes - Neck Neck: Supple, no meningeal sign - Cardiac Cardiac: RRR, No murmur, Strong equal pulses - Respiratory Respiratory: No respiratory distress, Clear bilaterally - Abdomen Abdomen: Normal bowel sounds, Soft, Non tender, Non distended - Derm Derm: Warm and dry - Extremities Extremities: Other (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 sensation intact over right lateral deltoid.) - Neuro Neuro: Alert and oriented X 3 - Psych Psych: Normal mood, Normal affect Results - Vitals Vitals: Vital Signs - 24 hr 12/15/19 12/15/19 18:34 20:04 Temperature 37.7 C H Heart Rate 96 96 Respiratory 17 19 Rate Blood Pressure 130/114 H 139/98 H O2 Saturation 98 98 Oxygen O2 Source Room air PD MEDICAL DECISION MAKING - ED course Complexity details: re-evaluated patient (results and plans explained to patient. will treat with one dose of IM valium. ) Departure - Departure Disposition: 01 Home, Self Care Clinical Impression: Shoulder injury Qualifiers: Encounter type: initial encounter Laterality: right Qualified Code(s): S49.91XA - Unspecified injury of right shoulder and upper arm, initial encounter Condition: Good Instructions: Muscle Spasm Follow-Up: Nils Macedo DO [Primary Care Provider] - Tomorrow
--- NOTE | 2019-12-15 19:56 | XRAY Report ---
Reason: right shoulder pain Procedure Date: 12/15/2019 Accession Number: [id number] / [id number] Procedure: XR - Shoulder 3 View RT CPT Code: Final Report FULL RESULT: EXAM: RIGHT SHOULDER RADIOGRAPHY EXAM DATE: 12/15/2019 07:37 PM. CLINICAL HISTORY: Right shoulder pain. COMPARISON: SHOULDER 3 VIEW RT 09/25/2019 2:01 PM. TECHNIQUE: 3 views. FINDINGS: Bones: Bony mineralization appears appropriate. No acute fracture identified. Chronic concave deformity of the humeral head appears unchanged. Joints: No glenohumeral or acromioclavicular dislocation identified. Soft tissues: The visualized lung appears unremarkable. IMPRESSION: No acute fracture or dislocation identified. [facility]
[2019-12-15 20:05] VITALS: BP 139/98
[2019-12-15] MEDS ORDERED: diazePAM INJ 5 MG/ML SYRINGE IM STA (20:18)
== END 2019-12-15 21:11 | disposition home or self-care (01) ==
LOC: ED 18:22
DX: S49.91XA Unspecified injury of right shoulder and upper arm, initial encounter (principal); W20.8XXA Other cause of strike by thrown, projected or falling object, initial encounter; Y93.89 Activity, other specified
CPT/HCPCS: 96372; 99282; 99284

== ENCOUNTER 2019-12-16 11:21 | Outpatient (CLI) | payer MEDICAID | END 2019-12-16 11:22 | disposition critical access hospital (66) | LOC: EMS 11:21 | PROVIDERS: ATTEND Surgery | DX: M54.9 Dorsalgia, unspecified (principal); R20.0 Anesthesia of skin; X50.0XXA Overexertion from strenuous movement or load, initial encounter | CPT/HCPCS: A0425; A0427; A0999 ==

== ENCOUNTER 2019-12-16 11:46 | Emergency (ER) | payer MEDICAID ==
[2019-12-16] MEDS ORDERED: HYDROmorphone 1 MG/ML CARPUJECT IM STA (12:43)
--- NOTE | 2019-12-16 12:46 | ED Physician Documentation ---
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 He kind of got caught in it and fell down. He injured his shoulder which was x-rayed yesterday with negative results but he notes now that he had a crunch in his back at that time and has severe low back pain. He also notes that without incontinence today he could not feel that he was having a bowel movement or urinating but he was able to make it to the toilet for that and he notes that he is very numb in the right leg but not the left. No fevers.) Review of Systems Ten Systems: 10 systems reviewed and negative Constitutional: denies: Fever, Chills Cardiac: denies: Chest pain / pressure, Palpitations Respiratory: denies: Dyspnea, Cough GI: denies: Abdominal Pain, Nausea, Vomiting : denies: Dysuria, Hesitancy, Incontinent PD PAST MEDICAL HISTORY - Past Medical History Cardiovascular: Arrhythmia Respiratory: None Neuro: Migraines Endocrine/Autoimmune: None GI: None : None HEENT: Chronic vision loss Psych: Anxiety Musculoskeletal: Rheumatoid arthritis, Other Derm: None - Past Surgical History Past Surgical History: Yes Ortho: Arthroscopic surgery - Present Medications Home Medications: Ambulatory Orders Medication Instructions Recorded Confirmed Albuterol Sulf [Ventolin Hfa 1 - 2 puffs INH Q4HR PRN #1 inhaler 09/24/19 Inhaler] Azithromycin [Zithromax] 0 mg PO DAILY #6 tablet 09/24/19 Oxycodone HCl/Acetaminophen 1 - 2 each PO Q6H PRN #10 tablet 12/16/19 [Percocet 5-325 mg Tablet] Promethazine [Phenergan] 25 mg PO Q6H PRN #10 tab 12/16/19 predniSONE [Deltasone] 20 mg PO [id number] #21 tab 12/16/19 - Allergies Allergies/Adverse Reactions: Allergies Allergy/AdvReac Type Severity Reaction Status Date / Time ketorolac tromethamine * Allergy Unknown Verified 12/16/19 12:00 [From Toradol] tramadol Allergy Unknown Verified 12/16/19 12:00 acetaminophen [From Vicodin] AdvReac severe Verified 12/16/19 12:00 headache hydrocodone bitartrate * AdvReac severe Verified 12/16/19 12:00 [From Vicodin] headache NSAIDS (Non-Steroidal AdvReac Nausea Verified 12/16/19 12:00 Anti-Inflamma oxycodone AdvReac Unknown Verified 12/16/19 12:00 - Social History Does the pt smoke?: No Smoking Status: Never smoker Does the pt drink ETOH?: Yes Does the pt have substance abuse?: No - Immunizations Immunizations are current?: Yes - POLST Patient has POLST: No PD ED PE NORMAL - Vitals Vital signs reviewed: Yes - General General: Alert and oriented X 3, No acute distress - HEENT HEENT: PERRL, EOMI - Neck Neck: Supple, no meningeal sign, No bony TTP - Back Back: No CVA TTP, No spinal TTP - Extremities Extremities: Other (Lumbar spine is tender around L2, there is no deformity. He has a lot of pain when sitting up. He is completely insensate in both legs with no reflexes, but he says the areflexia is pre-much a chronic issue. He is able to flex and extend at the ankle and hip, but with a lot of pain so it is hard to tell if he is weak there. The left thigh is smaller than the right which is a chronic issue. He has multiple skeletal abnormalities from his arthrogryposis with multiple splints in place.) - Neuro Neuro: Alert and oriented X 3, Normal speech Eye Opening: Spontaneous Motor: Obeys Commands Verbal: Oriented GCS Score: 15 - Psych Psych: Normal mood, Normal affect Results - Vitals Vitals: Vital Signs - 24 hr 12/16/19 12/16/19 11:50 15:27 Temperature 37.2 C Heart Rate 86 74 Respiratory 16 18 Rate Blood Pressure 152/110 H 113/83 H O2 Saturation 99 99 Oxygen O2 Source Room air PD MEDICAL DECISION MAKING - ED course ED course: 34-year-old gentleman with severe back pain and some neurologic symptoms after a fall yesterday. CT was negative for acute injury. I think this makes an acute cauda equina at his age very unlikely. We explored the possibility of doing an MRI but he prefers to do this with his physician and refused to have one done here given that we do not have an open MRI. Departure - Departure Disposition: 01 Home, Self Care Clinical Impression: Back pain, Lumbar strain Condition: Good Instructions: ED Back Care Tips, ED Sprain Strain Lumbar Follow-Up: Nils Macedo DO [Primary Care Provider] - Prescriptions: Oxycodone HCl/Acetaminophen [Percocet 5-325 mg Tablet] 1 - 2 each PO Q6H PRN #10 tablet PRN Reason: pain predniSONE [Deltasone] 20 mg PO [id number] #21 tab Promethazine [Phenergan] 25 mg PO Q6H PRN #10 tab PRN Reason: Nausea / Vomiting Comments: Your CT scan does not show any findings that are concerning for acute or serious injury. You do have some chronic findings, which is not surprising, given your history of previous back issues. Please call today to set up follow-up with your primary care physician to discuss ongoing management of your discomfort.
[2019-12-16] MEDS ORDERED: PROMETHAZINE 25 MG/1 ML VIAL IM STA (14:15)
--- NOTE | 2019-12-16 14:28 | CT Report ---
Reason: back injury Procedure Date: 12/16/2019 Accession Number: [id number] / [id number] Procedure: CT - LUMBAR SPINE WO CPT Code: Final Report FULL RESULT: EXAM: CT LUMBAR SPINE WITHOUT CONTRAST EXAM DATE: 12/16/2019 02:01 PM. CLINICAL HISTORY: Back Injury. COMPARISONS: LUMBAR SPINE W/O 07/21/2013 8:20 PM. TECHNIQUE: Thin-section axial images were acquired of the lumbar spine from T12 to S1 without contrast. Post-processing: Coronal and sagittal reformats. Other: None. In accordance with CT protocol optimization, one or more of the following dose reduction techniques were utilized for this exam: automated exposure control, adjustment of mA and/or KV based on patient size, or use of iterative reconstructive technique. FINDINGS: Alignment: No scoliosis or spondylolisthesis. Bones: Five [id number] lumbar vertebral bodies are present. No fractures or bone lesions. A transitional S1 element noted. Disk Levels/Facets: T12-L1: Unremarkable. L1-L2: Unremarkable. L2-L3: Unremarkable. L3-L4: Unremarkable. L4-L5: No disk space loss. Minimal osteophytes developing anteriorly. L5-S1: No disk space loss. Minimal osteophytes developing anteriorly. Musculature: Normal. No fatty atrophy. Other: The visualized retroperitoneum is unremarkable. IMPRESSION: 1. Minimal L4-S1 degenerative disk disease without disk space loss. 2. No fracture or malalignment. RADIA
[2019-12-16] MEDS ORDERED: ONDANSETRON ODT 4 MG TABLET TL STA (15:15)
[2019-12-16] MEDS ORDERED: LIDOCAINE PATCH 5% TOP STA (15:16)
[2019-12-16 16:16] VITALS: BP 115/92
== END 2019-12-16 16:16 | disposition home or self-care (01) ==
LOC: EDUNIT# → ED 11:46
DX: S39.012A Strain of muscle, fascia and tendon of lower back, initial encounter (principal); X50.0XXA Overexertion from strenuous movement or load, initial encounter; Y93.89 Activity, other specified; Y99.0 Civilian activity done for income or pay; M51.37 Other intervertebral disc degeneration, lumbosacral region; Q68.8 Other specified congenital musculoskeletal deformities; M06.9 Rheumatoid arthritis, unspecified
CPT/HCPCS: 72131; 96372; 99283; 99284; A9270; J1170; Q0162

== ENCOUNTER 2020-01-17 20:16 | Emergency (ER) | payer MEDICAID ==
[2020-01-17 20:39] LABS: RAPID STREP SCREEN Negative (Negative)
--- NOTE | 2020-01-17 21:32 | ED Physician Documentation ---
History of Present Illness - Stated complaint Stated Complaint: SORE/SCRATCHY THROAT - Chief complaint Chief Complaint: Heent - History obtained from History obtained from: Patient - Additonal information Additional information: Patient comes emergency department complaining of sore throat and cough cough for the last 3 days. He states that he has had a sick contact at work who tested negative for "everything". Patient states that he had a little chill yesterday and states he "knows" he had a fever but did not measure a temperature.Patient states that he is prone to sinusitis and strep throat in the "always" goes to his lungs. He states he would not mind a Z-Amish. He has had some sinus congestion. He denies any facial pain. No vomiting or diarrhea. No abdominal pain or chest pain. No other complaints at this time. Review of Systems Ten Systems: 10 systems reviewed and negative Constitutional: reports: Chills (With subjective fever.) Eyes: reports: Reviewed and negative Ears: reports: Reviewed and negative Nose: reports: Congestion Throat: reports: Sore throat Cardiac: reports: Reviewed and negative Respiratory: reports: Cough GI: reports: Reviewed and negative : reports: Reviewed and negative Skin: reports: Reviewed and negative Musculoskeletal: reports: Reviewed and negative Neurologic: reports: Reviewed and negative Psychiatric: reports: Reviewed and negative Endocrine: reports: Reviewed and negative Immunocompromised: reports: Reviewed and negative PD PAST MEDICAL HISTORY - Past Medical History Past Medical History: Yes Cardiovascular: Arrhythmia Respiratory: None Neuro: Migraines Endocrine/Autoimmune: None GI: None : None HEENT: Chronic vision loss Psych: Anxiety Musculoskeletal: Rheumatoid arthritis, Other Derm: None - Past Surgical History Past Surgical History: Yes Ortho: Arthroscopic surgery - Present Medications Home Medications: Ambulatory Orders Medication Instructions Recorded Confirmed Albuterol Sulf [Ventolin Hfa 1 - 2 puffs INH Q4HR PRN #1 inhaler 09/24/19 Inhaler] Azithromycin [Zithromax] 0 mg PO DAILY #6 tablet 09/24/19 Oxycodone HCl/Acetaminophen 1 - 2 each PO Q6H PRN #10 tablet 12/16/19 [Percocet 5-325 mg Tablet] Promethazine [Phenergan] 25 mg PO Q6H PRN #10 tab 12/16/19 predniSONE [Deltasone] 20 mg PO [id number] #21 tab 02/13/20 - Allergies Allergies/Adverse Reactions: Allergies Allergy/AdvReac Type Severity Reaction Status Date / Time ketorolac tromethamine * Allergy Unknown Verified 01/17/20 20:24 [From Toradol] tramadol Allergy Unknown Verified 01/17/20 20:24 acetaminophen [From Vicodin] AdvReac severe Verified 01/17/20 20:24 headache hydrocodone bitartrate * AdvReac severe Verified 01/17/20 20:24 [From Vicodin] headache NSAIDS (Non-Steroidal AdvReac Nausea Verified 01/17/20 20:24 Anti-Inflamma oxycodone AdvReac Unknown Verified 01/17/20 20:24 - Social History Does the pt smoke?: No Smoking Status: Never smoker Does the pt drink ETOH?: Yes Does the pt have substance abuse?: No - Immunizations Immunizations are current?: Yes - POLST Patient has POLST: No PD ED PE NORMAL - Vitals Vital signs reviewed: Yes - General General: Alert and oriented X 3, No acute distress - HEENT HEENT: Atraumatic, PERRL, EOMI, Moist mucous membranes, Pharynx benign - Neck Neck: Supple, no meningeal sign - Cardiac Cardiac: RRR, No murmur - Respiratory Respiratory: No respiratory distress, Clear bilaterally - Abdomen Abdomen: Normal bowel sounds, Soft, Non tender, Non distended - Derm Derm: Warm and dry - Extremities Extremities: Other (Chronic deformity. No acute findings.) - Neuro Neuro: Alert and oriented X 3 - Psych Psych: Normal mood, Normal affect Results - Vitals Vitals: Vital Signs - 24 hr 01/17/20 01/17/20 20:24 22:30 Temperature 36.7 C 36.7 C Heart Rate 88 74 Respiratory 14 18 Rate Blood Pressure 150/100 H 142/90 H O2 Saturation 98 100 Oxygen O2 Source Room air - Labs Labs: Laboratory Tests 01/17/20 01/17/20 20:24 21:34 Influenza A (Rapid) Negative Influenza B (Rapid) Negative Group A Strep Rapid Negative - Rads (name of study) Chest x-ray Radiology: Final report received, EMP read indepedently, See rad report (Negative) PD MEDICAL DECISION MAKING - ED course Complexity details: reviewed old records, reviewed results, re-evaluated patient, considered differential, d/w patient ED course: Patient was worked up as an strep and influenza swabs, and chest x-ray, All of which were negative. I discussed with the patient that he most likely has a viral syndrome and does not need antibiotics this point in time. We discussed potentially needing antibiotics if heDevelops aproductive cough that is per sistent. We have discussed home management of the symptoms, as well as usual indications for return. Departure - Departure Disposition: 01 Home, Self Care Clinical Impression: Viral syndrome Pharyngitis Qualifiers: Pharyngitis/tonsillitis etiology: unspecified etiology Qualified Code(s): J02.9 - Acute pharyngitis, unspecified Condition: Good Instructions: ED Pharyngitis Viral, ED Viral Syndrome Comments: Your strep and influenza tests are negative. Your chest x-ray is also negative. At this point in time, your symptoms are mostly caused by a virus.There is no need for antibiotics at this time. Given your history of developing bronchitis, you will be given a prescription to fill if you develop thick, yellow-green sputum that lasts for more than 3 days, especially with fever. Otherwise, you should not take antibiotics for this. Please follow-up with your primary care physician otherwise. Discharge Date/Time: 01/17/20 22:35
--- NOTE | 2020-01-17 21:50 | XRAY Report ---
Reason: chest pain Procedure Date: 01/17/2020 Accession Number: [id number] / [id number] Procedure: XR - Chest 1 View X-Ray CPT Code: 62748 Final Report FULL RESULT: EXAM: CHEST RADIOGRAPHY EXAM DATE: 01/17/2020 09:40 PM. CLINICAL HISTORY: Chest pain. Sore throat. Cough for 3 days. COMPARISON: CHEST 2 VIEW 09/24/2019 8:02 PM. TECHNIQUE: Upright AP view. The projection is lordotic. The study is mildly underpenetrated. FINDINGS: Lungs/Pleura: No focal opacities evident. No pleural effusion. No pneumothorax. Mediastinum: Within exam limitations, the cardiomediastinal contour is normal. Other: None. IMPRESSION: Negative chest. Lungs are clear. RADIA
[2020-01-17 22:36] VITALS: BP 142/90
== END 2020-01-17 22:35 | disposition home or self-care (01) ==
LOC: ED 20:16
DX: B34.9 Viral infection, unspecified (principal)
CPT/HCPCS: 71045; 87070; 87275; 87276; 87430; 99284

== ENCOUNTER 2020-02-21 18:56 | Outpatient (CLI) | payer MEDICAID | END 2020-02-21 18:57 | disposition EMS.NT | LOC: EMS 18:56 | PROVIDERS: ATTEND Surgery | DX: R68.84 Jaw pain (principal); R11.0 Nausea; R07.9 Chest pain, unspecified ==

== ENCOUNTER 2020-03-17 16:44 | Emergency (ER) | payer MEDICAID ==
[2020-03-17] MEDS ORDERED: PROMETHAZINE 25 MG/1 ML VIAL IM STA (17:34)
[2020-03-17] MEDS ORDERED: HYDROmorphone 1 MG/ML CARPUJECT IM STA (17:34)
--- NOTE | 2020-03-17 17:36 | ED Physician Documentation ---
PD HPI ABD PAIN - Stated complaint Stated Complaint: RT SIDE ABD PX - Chief complaint Chief Complaint: Abd Pain - History obtained from History obtained from: Patient (34-year-old gentleman with arthrogryposis but no history of abdominal surgeries presents with pain in the right lower quadrant that is nonmigratory and is happened since 7 AM this morning. Not associated with nausea, diarrhea, constipation, or fevers. He is never had this before. Pain is worse if he moves.) Review of Systems Ten Systems: 10 systems reviewed and negative Constitutional: denies: Fever, Chills Cardiac: denies: Chest pain / pressure, Palpitations Respiratory: denies: Dyspnea, Cough GI: reports: Abdominal Pain PD PAST MEDICAL HISTORY - Past Medical History Past Medical History: Yes Cardiovascular: Arrhythmia Respiratory: None Neuro: Migraines Endocrine/Autoimmune: None GI: None : None HEENT: Chronic vision loss Psych: Anxiety Musculoskeletal: Rheumatoid arthritis, Other Derm: None - Past Surgical History Past Surgical History: Yes Ortho: Arthroscopic surgery - Present Medications Home Medications: Ambulatory Orders Medication Instructions Recorded Confirmed Albuterol Sulf [Ventolin Hfa 1 - 2 puffs INH Q4HR PRN #1 inhaler 09/24/19 Inhaler] Azithromycin [Zithromax] 0 mg PO DAILY #6 tablet 09/24/19 Oxycodone HCl/Acetaminophen 1 - 2 each PO Q6H PRN #10 tablet 12/16/19 [Percocet 5-325 mg Tablet] Promethazine [Phenergan] 25 mg PO Q6H PRN #10 tab 12/16/19 predniSONE [Deltasone] 20 mg PO [id number] #21 tab 12/16/19 - Allergies Allergies/Adverse Reactions: Allergies Allergy/AdvReac Type Severity Reaction Status Date / Time ketorolac tromethamine * Allergy Unknown Verified 03/17/20 17:08 [From Toradol] tramadol Allergy Unknown Verified 03/17/20 17:08 acetaminophen [From Vicodin] AdvReac severe Verified 03/17/20 17:08 headache hydrocodone bitartrate * AdvReac severe Verified 03/17/20 17:08 [From Vicodin] headache NSAIDS (Non-Steroidal AdvReac Nausea Verified 03/17/20 17:08 Anti-Inflamma oxycodone AdvReac Unknown Verified 03/17/20 17:08 - Social History Does the pt smoke?: No Smoking Status: Never smoker Does the pt drink ETOH?: Yes Does the pt have substance abuse?: No - Immunizations Immunizations are current?: Yes - POLST Patient has POLST: No PD ED PE NORMAL - Vitals Vital signs reviewed: Yes - General General: Alert and oriented X 3, No acute distress - Respiratory Respiratory: No respiratory distress, Clear bilaterally - Abdomen Abdomen: Normal bowel sounds, Soft, Other (Focally tender in the right lower quadrant, obese, no surgical signs. No hernia mass.) - Derm Derm: Normal color, Warm and dry - Extremities Extremities: Other (Multiple orthopedic abnormalities consistent with arthr ogryposis) - Neuro Neuro: Alert and oriented X 3, Normal speech - Psych Psych: Normal mood, Normal affect Results - Vitals Vitals: Vital Signs - 24 hr 03/17/20 03/17/20 17:01 17:07 Temperature 36.8 C Heart Rate 88 86 Respiratory 16 16 Rate Blood Pressure 141/108 H 140/96 H O2 Saturation 97 96 Oxygen O2 Source Room air - Labs Labs: Laboratory Tests 03/17/20 03/17/20 17:52 17:52 WBC 12.5 H RBC 5.35 Hgb 14.6 Hct 45.2 MCV 84.5 MCH 27.3 MCHC 32.3 RDW 14.0 Plt Count 240 MPV 10.7 Neut # (Auto) 9.0 H Lymph # (Auto) 2.5 Loving # (Auto) 0.7 Eos # (Auto) 0.1 Baso # (Auto) 0.1 Absolute Nucleated RBC 0.00 Nucleated RBC % 0.0 Sodium 137 Potassium 3.4 L Chloride 105 Carbon Dioxide 22 Anion Gap 10.0 BUN 15 Creatinine 0.5 L Estimated GFR (MDRD) 188 Glucose 90 Calcium 8.4 L Total Bilirubin 0.8 AST 15 ALT 21 Alkaline Phosphatase 59 Total Protein 7.6 Albumin 4.0 Globulin 3.6 Albumin/Globulin Ratio 1.1 Lipase 28 - Rads (name of study) Ct KUB Radiology: EMP read contemporaneously (normal) PD MEDICAL DECISION MAKING - ED course ED course: 34-year-old gentleman presents with right lower quadrant abdominal pain, nonmigratory and worse with motion. He is focally tender but it seems more muscular than anything else. Work-up here was negative. Close watchful waiting was advised. Departure - Departure Disposition: 01 Home, Self Care Clinical Impression: Abdominal pain Qualifiers: Abdominal location: right lower quadrant Qualified Code(s): R10.31 - Right lower quadrant pain Condition: Good Record reviewed to determine appropriate education?: Yes Instructions: ED Abdominal Pain Unkn Cause, ED Abdominal Pain Unkn Cause Male Comments: Your appendix is normal and there is no kidney stone, seems most likely given the pattern that this pain is musculoskeletal. You can use heat and gentle stretching. Return if worse or if not better in short timeframe. Discharge Date/Time: 03/17/20 19:25
[2020-03-17 18:03] LABS: BASOPHILS # (AUTO) 0.1 10^3/uL (0.0-0.1); BASOPHILS % (AUTO) 0.5 %; EOSINOPHILS # (AUTO) 0.1 10^3/uL (0.0-0.7); EOSINOPHILS % (AUTO) 1.1 %; HGB - HEMOGLOBIN 14.6 g/dL (14.0-18.0); LYMPHOCYTES # (AUTO) 2.5 10^3/uL (1.5-3.5); LYMPHOCYTES % (AUTO) 20.4 %; MEAN CORPUSCULAR HEMOGLOBIN 27.3 pg (27.0-31.0); MEAN CORPUSCULAR HGB CONC 32.3 g/dL (32.0-36.0); MEAN CORPUSCULAR VOLUME 84.5 fL (80.0-94.0); MEAN PLATELET VOLUME 10.7 fL (7.4-11.4); MONOCYTES # (AUTO) 0.7 10^3/uL (0.0-1.0); MONOCYTES % (AUTO) 5.4 %; PLT - PLATELET COUNT 240 10^3/uL (130-450); RED BLOOD COUNT 5.35 10^6/uL (4.70-6.10); WHITE BLOOD COUNT 12.5 x10^3/uL (4.8-10.8)
[2020-03-17 18:12] LABS: ALBUMIN/GLOBULIN RATIO 1.1 (1.0-2.2); BILIRUBIN,TOTAL 0.8 mg/dL (0.2-1.0); CALCIUM 8.4 mg/dL (8.5-10.3); CREATININE 0.5 mg/dL (0.6-1.2); TOTAL PROTEIN 7.6 g/dL (6.7-8.2)
[2020-03-17 18:39] VITALS: BP 140/96
--- NOTE | 2020-03-17 19:19 | CT Report ---
Reason: RLQ pain Procedure Date: 03/17/2020 Accession Number: [id number] / [id number] Procedure: CT - Abdomen/Pelvis WO CPT Code: Final Report FULL RESULT: EXAM: CT ABDOMEN AND PELVIS (CT KUB) EXAM DATE: 03/17/2020 06:41 PM. CLINICAL HISTORY: RLQ pain. COMPARISONS: ABDOMEN/PELVIS W/O 10/26/2016 12:21 PM. TECHNIQUE: Routine axial helical CT imaging was performed through the abdomen and pelvis without IV contrast. Reconstructions: Coronal and sagittal. In accordance with CT protocol optimization, one or more of the following dose reduction techniques were utilized for this exam: automated exposure control, adjustment of mA and/or KV based on patient size, or use of iterative reconstructive technique. FINDINGS: Limited evaluation of solid abdominal organs without intravenous contrast. There is mild streak artifact from patient position. Lung Bases: Unremarkable. Right Kidney/Ureter: No stone, hydronephrosis, or hydroureter. No perinephric fat stranding. Left Kidney/Ureter: No stone, hydronephrosis, or hydroureter. No perinephric fat stranding. Other Solid Organs: Probable fatty infiltration of the liver. Noncontrast images of the solid organs are otherwise grossly unremarkable. Gallbladder/Bile Ducts: Unremarkable. Peritoneal Cavity: No free fluid, free air or shukri adenopathy. No evidence of a bowel obstruction. Normal appendix. Pelvic Organs: No bladder stone or wall thickening. The prostate gland is normal in size. Vasculature: Unremarkable. Other: Near-complete atrophy of the visualized left thigh musculature. Dysmorphic left proximal femur and acetabulum. Hypoplastic left hemipelvis. IMPRESSION: No urinary tract stones or obstruction. Normal appendix. RADIA
== END 2020-03-17 19:25 | disposition home or self-care (01) ==
LOC: ED 16:44
DX: R10.31 Right lower quadrant pain (principal); Q68.8 Other specified congenital musculoskeletal deformities
CPT/HCPCS: 36415; 74176; 80053; 83690; 85025; 96372; 99284; J1170

== ENCOUNTER 2020-03-18 18:09 | Outpatient (CLI) | payer MEDICAID | END 2020-03-18 18:10 | disposition critical access hospital (66) | LOC: EMS 18:09 | PROVIDERS: ATTEND Surgery | DX: R10.9 Unspecified abdominal pain (principal) | CPT/HCPCS: A0425; A0429 ==

== ENCOUNTER 2020-03-18 18:31 | Emergency (ER) | payer MEDICAID ==
[2020-03-18 19:28] VITALS: BP 155/88
[2020-03-18] MEDS ORDERED: DEXAMETHASONE 10 MG/ML VIAL PO STA (19:36)
--- NOTE | 2020-03-18 19:38 | ED Physician Documentation ---
History of Present Illness - Stated complaint Stated Complaint: ABD PAIN - Chief complaint Chief Complaint: General - History obtained from History obtained from: Patient, EMS - History of Present Illness Timing: Yesterday Pain level max: 10 Pain level now: 10 - Additonal information Additional information: 34-year-old male presents to the emergency department stating that he was leaning over a trailer hitch yesterday and has developed abdominal pain since that time. He was seen here yesterday with normal labs and normal CT scan. No vomiting. No diarrhea. No constipation. He states that the pain is continued. Worse with movement and palpation. Better with rest. Review of Systems Ten Systems: 10 systems reviewed and negative Constitutional: denies: Fever, Chills Cardiac: denies: Chest pain / pressure, Palpitations Respiratory: denies: Dyspnea, Cough GI: denies: Vomiting, Diarrhea, Hematemesis, Bloody / black stool : denies: Dysuria Skin: denies: Rash Musculoskeletal: denies: Neck pain, Back pain Neurologic: denies: Headache PD PAST MEDICAL HISTORY - Past Medical History Past Medical History: Yes Cardiovascular: Arrhythmia Respiratory: None Neuro: Migraines Endocrine/Autoimmune: None GI: None : None HEENT: Chronic vision loss Psych: Anxiety Musculoskeletal: Rheumatoid arthritis, Other Derm: None - Past Surgical History Past Surgical History: Yes Ortho: Arthroscopic surgery - Present Medications Home Medications: Ambulatory Orders Medication Instructions Recorded Confirmed Albuterol Sulf [Ventolin Hfa 1 - 2 puffs INH Q4HR PRN #1 inhaler 09/24/19 Inhaler] Azithromycin [Zithromax] 0 mg PO DAILY #6 tablet 09/24/19 Oxycodone HCl/Acetaminophen 1 - 2 each PO Q6H PRN #10 tablet 12/16/19 [Percocet 5-325 mg Tablet] Promethazine [Phenergan] 25 mg PO Q6H PRN #10 tab 12/16/19 predniSONE [Deltasone] 20 mg PO [id number] #21 tab 12/16/19 - Allergies Allergies/Adverse Reactions: Allergies Allergy/AdvReac Type Severity Reaction Status Date / Time ketorolac tromethamine * Allergy Unknown Verified 03/18/20 19:19 [From Toradol] tramadol Allergy Unknown Verified 03/18/20 19:19 acetaminophen [From Vicodin] AdvReac severe Verified 03/18/20 19:19 headache hydrocodone bitartrate * AdvReac severe Verified 03/18/20 19:19 [From Vicodin] headache NSAIDS (Non-Steroidal AdvReac Nausea Verified 03/18/20 19:19 Anti-Inflamma oxycodone AdvReac Unknown Verified 03/18/20 19:19 - Social History Does the pt smoke?: No Smoking Status: Never smoker Does the pt drink ETOH?: Yes Does the pt have substance abuse?: No - Immunizations Immunizations are current?: Yes - POLST Patient has POLST: No PD ED PE NORMAL - Vitals Vital signs reviewed: Yes - General General: Alert and oriented X 3, No acute distress, Well developed/nourished - HEENT HEENT: Moist mucous membranes - Neck Neck: Supple, no meningeal sign - Cardiac Cardiac: RRR, Strong equal pulses - Respiratory Respiratory: No respiratory distress, Clear bilaterally - Abdomen Abdomen: Normal bowel sounds, Soft, Non distended, Other (Tender palpation right mid abdomen, anterior aspect. No peritoneal signs. No guarding. No rebound. Normal overlying skin. No ecchymosis. No abrasions.) - Back Back: No CVA TTP, No spinal TTP - Derm Derm: Warm and dry - Neuro Neuro: Alert and oriented X 3 - Psych Psych: Normal mood, Normal affect Results - Vitals Vitals: Vital Signs - 24 hr 03/18/20 03/18/20 18:36 19:27 Temperature 36.9 C 36.7 C Heart Rate 82 87 Respiratory 14 16 Rate Blood Pressure 165/107 H 155/88 H O2 Saturation 99 97 Oxygen O2 Source Room air PD MEDICAL DECISION MAKING - ED course Complexity details: reviewed old records, re-evaluated patient, considered differential, d/w patient ED course: I reviewed the patient's CT images, there is possible epiploic appendagitis on Transverse cut series 3 image #37. Patient states that he is allergic to Tylenol, all NSAIDs, tramadol, hydrocodone, oxycodone. Do not feel the Dilaudid is warranted for this essentially normal CT scan. The epiploic appendagitis is a possible finding, but not definite. There is no abrasion. No edema. No ecchymosis. No objective findings. Patient became upset when he was told he was not going to receive narcotic medication. 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 Patient has had 12 emergency department visits in the last year. He has a history of chronic pain and substance use/abuse. No indication to repeat laboratory testing. No indication for repeat imaging. No evidence of intramural hematoma. Patient will be discharged home with follow-up with his PCP. Departure - Departure Disposition: 01 Home, Self Care Clinical Impression: Epiploic appendagitis Condition: Good Instructions: ED Abdominal Pain Unkn Cause Follow-Up: Nils Macedo DO [Primary Care Provider] - Within 3 Days Comments: Follow-up with your doctor for further care. It appears that you have epiploic appendagitis on your CAT scan. Heat and ice may help with this as well. We will see if the steroid helps you. Discharge Date/Time: 03/18/20 19:50
== END 2020-03-18 19:50 | disposition home or self-care (01) ==
LOC: EDUNIT# → ED 18:31
DX: K63.89 Other specified diseases of intestine (principal); Z88.6 Allergy status to analgesic agent; Z88.5 Allergy status to narcotic agent; Z88.8 Allergy status to other drugs, medicaments and biological substances
CPT/HCPCS: 99283; 99284

== ENCOUNTER 2020-03-19 04:38 | Outpatient (CLI) | payer MEDICAID | END 2020-03-19 04:39 | disposition critical access hospital (66) | LOC: EMS 04:38 | PROVIDERS: ATTEND Surgery | DX: R07.9 Chest pain, unspecified (principal); R00.0 Tachycardia, unspecified | CPT/HCPCS: A0425; A0429; A0999 ==

== ENCOUNTER 2020-03-19 05:07 | Emergency (ER) | payer MEDICAID ==
--- NOTE | 2020-03-19 05:19 | ED Physician Documentation ---
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 No: Shortness of air, Nausea, Vomiting Similar symptoms before: Has not had sx before Recently seen: Emergency Dept - Additional information Additional information: BIBA. 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 EMS arrived to find patient diaphoretic and rapid pulse rate 140s, sinus tachycardia on monitor and their field EKG. unable to establish IV en route; without intervention, patient's tachycardia improved to rate 100s-110s en route and on ED arrival. Patient was also T+R from this ED yesterday as well as 2 days ago for abdominal pain (blood tests and CT A/P were unremarkable for emergent pathology or symptom etiology). His chief complaint at this time is, as above, palpitations and chest burning; he does c/o ongoing abdominal pain, as well. Review of Systems Constitutional: reports: Sweats. denies: Fever, Chills Cardiac: reports: Chest pain / pressure, Palpitations. denies: Pedal edema, Calf pain Respiratory: reports: Reviewed and negative GI: reports: Abdominal Pain. denies: Vomiting, Constipation, Diarrhea PD PAST MEDICAL HISTORY - Past Medical History Cardiovascular: Arrhythmia Respiratory: None Neuro: Migraines Endocrine/Autoimmune: None GI: None : None HEENT: Chronic vision loss Psych: Anxiety Musculoskeletal: Rheumatoid arthritis, Other Derm: None - Past Surgical History Past Surgical History: Yes Ortho: Arthroscopic surgery - Present Medications Home Medications: Ambulatory Orders Medication Instructions Recorded Confirmed Albuterol Sulf [Ventolin Hfa 1 - 2 puffs INH Q4HR PRN #1 inhaler 09/24/19 Inhaler] Azithromycin [Zithromax] 0 mg PO DAILY #6 tablet 09/24/19 Oxycodone HCl/Acetaminophen 1 - 2 each PO Q6H PRN #10 tablet 12/16/19 [Percocet 5-325 mg Tablet] Promethazine [Phenergan] 25 mg PO Q6H PRN #10 tab 12/16/19 predniSONE [Deltasone] 20 mg PO [id number] #21 tab 12/16/19 Fluconazole [Diflucan] 150 mg PO ONCE #2 tablet 03/19/20 HYDROmorphone [Dilaudid] 2 - 4 mg PO Q4H PRN #20 tablet 03/19/20 Omeprazole 40 mg PO DAILY #30 capsule. 03/19/20 - Allergies Allergies/Adverse Reactions: Allergies Allergy/AdvReac Type Severity Reaction Status Date / Time ketorolac tromethamine * Allergy Unknown Verified 03/19/20 05:16 [From Toradol] tramadol Allergy Unknown Verified 03/19/20 05:16 acetaminophen [From Vicodin] AdvReac severe Verified 03/19/20 05:16 headache hydrocodone bitartrate * AdvReac severe Verified 03/19/20 05:16 [From Vicodin] headache NSAIDS (Non-Steroidal AdvReac Nausea Verified 03/19/20 05:16 Anti-Inflamma oxycodone AdvReac Unknown Verified 03/19/20 05:16 - Social History Does the pt smoke?: No Smoking Status: Never smoker Does the pt drink ETOH?: Yes Does the pt have substance abuse?: No - Immunizations Immunizations are current?: Yes - POLST Patient has POLST: No PD ED PE NORMAL - Vitals Vital signs reviewed: Yes - General General: Alert and oriented X 3, No acute distress, Well developed/nourished - HEENT HEENT: Moist mucous membranes - Cardiac Cardiac: No murmur - Respiratory Respiratory: No respiratory distress, Clear bilaterally - Abdomen Abdomen: Soft, Non tender PD ED PE EXPANDED - Cardiac Cardiac: Tachy Results - EKG (time done) No standard instances Rate: Rate (enter#) (107) Rhythm: Sinus tachycardia [place]: LAD Intervals: Normal [place] QRS: Normal Ischemia: Non specific changes (V5, V6) PD MEDICAL DECISION MAKING - ED course Complexity details: reviewed results, re-evaluated patient, considered differential, d/w patient Departure - Departure Disposition: 01 Home, Self Care Clinical Impression: Epiploic appendagitis, Dehydration Instructions: ED Abdominal Pain Unkn Cause, ED Dehydration Follow-Up: Nils Macedo DO [Physician No Access] - Prescriptions: Fluconazole [Diflucan] 150 mg PO ONCE #2 tablet HYDROmorphone [Dilaudid] 2 - 4 mg PO Q4H PRN #20 tablet PRN Reason: Pain Omeprazole 40 mg PO DAILY #30 capsule.dr Discharge Date/Time: 03/19/20 13:00 <Reagan Heredia - Last Filed: 03/19/20 16:40> PD ED PE NORMAL - Vitals Vital signs reviewed: Yes (Tachycardic hypertensive and tachypneic) - General General: Alert and oriented X 3, Well developed/nourished, Other (Patient does have flattened affect 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) - HEENT HEENT: Other (On my exam mucous membranes are dry) - Abdomen Abdomen: Soft, Non tender - Derm Derm: Normal color, Warm and dry, No rash - Extremities Extremities: Other (Multiple orthopedic deformities secondary to arthrogryposis.) - Neuro Neuro: Alert and oriented X 3, 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, No motor deficit, No sensory deficit, Normal speech Eye Opening: Spontaneous Motor: Obeys Commands Verbal: Oriented GCS Score: 15 - Psych Psych: Normal mood Results - Vitals Vitals: Vital Signs - 24 hr 03/19/20 03/19/20 03/19/20 05:14 07:16 09:00 Temperature 36.7 C Heart Rate 111 H 98 113 H Respiratory 27 H 16 18 Rate Blood Pressure 157/105 H 117/91 H 131/85 H O2 Saturation 96 94 94 03/19/20 03/19/20 03/19/20 11:00 12:05 13:18 Temperature 37.1 C Heart Rate 110 H 118 H 100 Respiratory 25 H 25 H 16 Rate Blood Pressure 139/91 H 164/88 H 145/78 H O2 Saturation 96 98 98 Oxygen O2 Source Room air - Labs Labs: Laboratory Tests 03/19/20 03/19/20 03/19/20 06:27 06:27 06:27 WBC 10.2 RBC 5.59 Hgb 15.0 Hct 47.0 MCV 84.1 MCH 26.8 L MCHC 31.9 L RDW 13.9 Plt Count 309 MPV 11.2 Neut # (Auto) 9.0 H Lymph # (Auto) 0.9 L [place] # (Auto) 0.1 Eos # (Auto) 0.0 Baso # (Auto) 0.0 Absolute Nucleated RBC 0.00 Nucleated RBC % 0.0 D-Dimer 206.3 Sodium Potassium Chloride Carbon Dioxide Anion Gap BUN Creatinine Estimated GFR (MDRD) Glucose Glycated Hemoglobin Estim Average Glucose Calcium Total Bilirubin AST ALT Alkaline Phosphatase Troponin I High Sens 36.3 H* Total Protein Albumin Globulin Albumin/Globulin Ratio Lipase Urine Color Urine Clarity Urine pH Ur Specific [place] Urine Protein Urine Glucose (UA) Urine Ketones Urine Occult Blood Urine Nitrite Urine Bilirubin Urine Urobilinogen Ur Leukocyte Esterase Urine RBC Urine WBC Ur Squamous Epith Cells Urine Crystals Amorphous Sediment Urine Bacteria Urine Mucus Ur Microscopic Review Urine Culture Comments Urine Opiates Screen Ur Oxycodone Screen Urine Methadone Screen Ur Propoxyphene Screen Ur Barbiturates Screen Ur Tricyclics Screen Ur Phencyclidine Scrn Ur Amphetamine Screen U Methamphetamines Scrn U Benzodiazepines Scrn Urine Cocaine Screen U Cannabinoids Screen 03/19/20 03/19/20 03/19/20 06:27 06:27 09:14 WBC RBC Hgb Hct MCV MCH MCHC RDW Plt Count MPV Neut # (Auto) Lymph # (Auto) [place] # (Auto) Eos # (Auto) Baso # (Auto) Absolute Nucleated RBC Nucleated RBC % D-Dimer Sodium 135 Potassium 4.0 Chloride 106 Carbon Dioxide 20 L Anion Gap 9.0 BUN 18 Creatinine 0.7 Estimated GFR (MDRD) 128 Glucose 196 H Glycated Hemoglobin 5.1 Estim Average Glucose 100 Calcium 9.0 Total Bilirubin 0.6 AST 17 ALT 21 Alkaline Phosphatase 68 Troponin I High Sens 32.4 H* Total Protein 7.8 Albumin 3.8 Globulin 4.0 Albumin/Globulin Ratio 1.0 Lipase 33 Urine Color Urine Clarity Urine pH Ur Specific [place] Urine Protein Urine Glucose (UA) Urine Ketones Urine Occult Blood Urine Nitrite Urine Bilirubin Urine Urobilinogen Ur Leukocyte Esterase Urine RBC Urine WBC Ur Squamous Epith Cells Urine Crystals Amorphous Sediment Urine Bacteria Urine Mucus Ur Microscopic Review Urine Culture Comments Urine Opiates Screen Ur Oxycodone Screen Urine Methadone Screen Ur Propoxyphene Screen Ur Barbiturates Screen Ur Tricyclics Screen Ur Phencyclidine Scrn Ur Amphetamine Screen U Methamphetamines Scrn U Benzodiazepines Scrn Urine Cocaine Screen U Cannabinoids Screen 03/19/20 12:20 WBC RBC Hgb Hct MCV MCH MCHC RDW Plt Count MPV Neut # (Auto) Lymph # (Auto) [place] # (Auto) Eos # (Auto) Baso # (Auto) Absolute Nucleated RBC Nucleated RBC % D-Dimer Sodium Potassium Chloride Carbon Dioxide Anion Gap BUN Creatinine Estimated GFR (MDRD) Glucose Glycated Hemoglobin Estim Average Glucose Calcium Total Bilirubin AST ALT Alkaline Phosphatase Troponin I High Sens Total Protein Albumin Globulin Albumin/Globulin Ratio Lipase Urine Color YELLOW Urine Clarity CLEAR Urine pH 5.5 Ur Specific [place] >=1.030 H Urine Protein 30 H Urine Glucose (UA) 100 H Urine Ketones TRACE Urine Occult Blood NEGATIVE Urine Nitrite NEGATIVE Urine Bilirubin NEGATIVE Urine Urobilinogen 0.2 (NORMAL) Ur Leukocyte Esterase NEGATIVE Urine RBC 0-5 Urine WBC 0-3 Ur Squamous Epith Cells MANY Squamous H Urine Crystals 11-25 Uric Acid Amorphous Sediment Moderate Urine Bacteria Many H Urine Mucus Marked Strands Ur Microscopic Review INDICATED Urine Culture Comments NOT INDICATED Urine Opiates Screen NEGATIVE Ur Oxycodone Screen NEGATIVE Urine Methadone Screen NEGATIVE Ur Propoxyphene Screen NEGATIVE Ur Barbiturates Screen NEGATIVE Ur Tricyclics Screen NEGATIVE Ur Phencyclidine Scrn NEGATIVE Ur Amphetamine Screen NEGATIVE U Methamphetamines Scrn NEGATIVE U Benzodiazepines Scrn POSITIVE H Urine Cocaine Screen NEGATIVE U Cannabinoids Screen NEGATIVE - Rads (name of study) chest Radiology: Prelim report reviewed (Impression: Suspect mild bibasilar atelectasis. Otherwise no acute cardiopulmonary abnormality.), EMP read indepedently, See rad report Procedures - IVC sono (time) 1000 Bedside IVC sono: IVC measures (cm) (1.13), IVC collapsed c insp (cm) (complete), Dehydration (est 1-2 liter deficit) PD MEDICAL DECISION MAKING - ED course Complexity details: reviewed old records, reviewed results, re-evaluated patient, considered differential, d/w patient ED course: 34-year-old male with a history of arthrogryposis has come to the emergency department with abdominal pain several days ago has not been diagnosed with ep iploic appendagitis and he continues to have some pain in his abdomen. He has come to the emergency department last night by ambulance when he developed tachycardia and diaphoresis. This morning he was seen by Dr. Nagel he had an electrocardiogram done a d-dimer and a troponin. Troponin was mildly elevated and a second troponin is obtained this morning as well as routine blood work. The second troponin is lower and his minimal elevation is likely due to tachycardia and hypertension. The tachycardia and hypertension are likely due to volume depletion. He does have a blood glucose of 196 on his blood work done this morning at 9 AM and he had his last oral intake at 10 PM last night. He does state that he has been up to the bathroom urinating frequently and drinking lots of extra fluids. He has a family history of diabetes. He was given a dose of dexamethasone yesterday afternoon for treatment of the epiploic appendagitis. We will check a hemoglobin A1c and provide fluids to the patient now. We were not able to establish IV and he is able to orally hydrate. His hemoglobin A1c is 5.1 shows an equivalent to 100 and I suspect the only reason his sugar is markedly elevated secondary to the dexamethasone and I believe he is dehydrated secondary to that and tachy secondary to the dehydration. We will maggie his chart to not give dexamethasone. He indicate he is having some trouble with itching on his legs near his braces similar to what he has had with yeast before. We will prescribe some diflucan.
[2020-03-19] MEDS ORDERED: LORazepam 1 MG TABLET PO STA (05:33)
[2020-03-19] MEDS ORDERED: MAG HYDROX/AL HYDROX/SIMETH 30 ML UDC PO STA (06:02)
[2020-03-19] MEDS ORDERED: LIDOCAINE VISCOUS 2% 15 ML UDC MM STA (06:02)
[2020-03-19 09:17] LABS: BASOPHILS % (AUTO) 0.2 %; LYMPHOCYTES # (AUTO) 0.9 10^3/uL (1.5-3.5); LYMPHOCYTES % (AUTO) 9.1 %; MEAN CORPUSCULAR HEMOGLOBIN 26.8 pg (27.0-31.0); MEAN CORPUSCULAR HGB CONC 31.9 g/dL (32.0-36.0); MEAN CORPUSCULAR VOLUME 84.1 fL (80.0-94.0); MEAN PLATELET VOLUME 11.2 fL (7.4-11.4); MONOCYTES # (AUTO) 0.1 10^3/uL (0.0-1.0); MONOCYTES % (AUTO) 1.2 %; NEUTROPHILS % (AUTO) 88.4 %; PLT - PLATELET COUNT 309 10^3/uL (130-450); RED BLOOD COUNT 5.59 10^6/uL (4.70-6.10); RED CELL DISTRIBUTION WIDTH 13.9 % (12.0-15.0); WHITE BLOOD COUNT 10.2 x10^3/uL (4.8-10.8)
[2020-03-19 09:19] LABS: ALBUMIN 3.8 g/dL (3.2-5.5); BILIRUBIN,TOTAL 0.6 mg/dL (0.2-1.0); CREATININE 0.7 mg/dL (0.6-1.2); TOTAL PROTEIN 7.8 g/dL (6.7-8.2)
--- NOTE | 2020-03-19 10:05 | XRAY Report ---
Reason: chest pain Procedure Date: 03/19/2020 Accession Number: [id number] / [id number] Procedure: XR - Chest 1 View X-Ray CPT Code: 31859 Final Report FULL RESULT: EXAM: CHEST RADIOGRAPHY EXAM DATE: 03/19/2020 09:27 AM. CLINICAL HISTORY: Chest pain. COMPARISON: Chest radiograph from 01/17/2020, 09/24/2019. TECHNIQUE: 1 view. FINDINGS: Lungs/Pleura: There is elevation of the right hemidiaphragm, as seen previously. Minimal hazy opacities present in the lung bases, likely combination of atelectasis and radiograph attenuation from patient body habitus. No pleural effusion or pneumothorax. Mediastinum: Cardiomediastinal silhouette is within normal limits. Pulmonary vasculature is unremarkable. Other: None. IMPRESSION: Suspect mild bibasilar atelectasis. Otherwise no acute cardiopulmonary abnormality. RADIA
[2020-03-19] MEDS ORDERED: SODIUM CHLORIDE 0.9% 1,000 ML IV STA (10:06)
[2020-03-19] MEDS ORDERED: ONDANSETRON 4 MG/2 ML VIAL IVP STA (10:06)
[2020-03-19] MEDS ORDERED: HYDROmorphone 1 MG/ML CARPUJECT IVP STA (10:06)
[2020-03-19 10:45] LABS: HB2 TOTAL 15.9 g/dL; HEMOGLOBIN A1C 0.51 g/dL; HEMOGLOBIN A1C % 5.1 % (4.6-6.2)
[2020-03-19 12:32] LABS: MUDS CUTOFF CONCENTRATIONS CUTOFF CONC BELOW:
[2020-03-19 12:39] LABS: BILIRUBIN,URINE NEGATIVE (NEGATIVE); GLUCOSE, URINE (UA) 100 mg/dL (NEGATIVE); KETONES,URINE (UA) TRACE mg/dL (NEGATIVE); LEUKOCYTE ESTERASE, URINE NEGATIVE (NEGATIVE); NITRITE,URINE NEGATIVE (NEGATIVE); OCCULT BLOOD,URINE NEGATIVE (NEGATIVE); PH,URINE 5.5 PH (5.0-7.5); PROTEIN,URINE 30 mg/dL (NEGATIVE); UROBILINOGEN,URINE 0.2 (NORMAL) E.U./dL (NORMAL)
[2020-03-19 12:43] LABS: CLARITY,URINE CLEAR (CLEAR)
[2020-03-19] MEDS ORDERED: PANTOPRAZOLE 40 MG TABLET PO STA (12:57)
[2020-03-19 13:04] LABS: AMORPHOUS SEDIMENT,UR Moderate /LPF; BACTERIA,URINE Many /HPF (None Seen); CRYSTALS,URINE 11-25 Uric Acid /LPF; MUCUS,URINE Marked Strands; RBC,URINE 0-5 /HPF (0-5); SQUAMOUS EPITHELIAL CELL,UR MANY Squamous (<= Few)
[2020-03-19 13:05] LABS: AMPHETAMINE SCREEN,URINE NEGATIVE (NEGATIVE); BENZODIAZEPINES SCREEN, URINE POSITIVE (NEGATIVE); COCAINE SCREEN URINE NEGATIVE (NEGATIVE); METHADONE SCREEN, URINE NEGATIVE (NEGATIVE); METHAMPHETAMINES SCREEN, URINE NEGATIVE (NEGATIVE); OPIATE SCREEN, URINE NEGATIVE (NEGATIVE); OXYCODONE SCREEN, URINE NEGATIVE (NEGATIVE); PROPOXYPHENE SCREEN, URINE NEGATIVE (NEGATIVE); TRICYCLIC ANTIDEPRESSANT,URINE NEGATIVE (NEGATIVE)
[2020-03-19 13:19] VITALS: BP 145/78
== END 2020-03-19 13:00 | disposition home or self-care (01) ==
LOC: EDUNIT# → ED 05:07
DX: K63.89 Other specified diseases of intestine (principal); E86.0 Dehydration
CPT/HCPCS: 36415; 71045; 80053; 80306; 81001; 83036; 83690; 84484; 85025; 85379; 93005; 96374; 99284; A9270; J1170; J8499; 81003; 87086

== ENCOUNTER 2020-04-09 14:22 | Emergency (ER) | payer MEDICAID ==
[2020-04-09] MEDS ORDERED: ONDANSETRON ODT 4 MG TABLET TL STA (15:10)
--- NOTE | 2020-04-09 15:13 | ED Physician Documentation ---
PD HPI ABD PAIN - Stated complaint Stated Complaint: ABD PX,NAUSEA - Chief complaint Chief Complaint: Abd Pain - History obtained from History obtained from: Patient - History of Present Illness Timing - onset: How many weeks ago (2) Timing - duration: Weeks (2) Timing - details: Gradual onset Pain level max: 9 Pain level now: 9 Quality: Aching, Pain Location: Other (R side of the abdomen) Radiation: No: Chest, , Lower back, Left flank, Left shoulder, Right flank, Right shoulder, Upper back Improved by: Laying still Worsened by: Moving, Palpation Associated symptoms: Nausea, Vomiting (x1). No: Fever, Hematemesis, Diarrhea, Constipation, Melena, Hematochezia, Dysuria, Hematuria Recently seen: Emergency Dept (Seen in the emergency department x4 for same. Normal labs. Normal CAT scan) - Additional information Additional information: Patient states that he saw his doctor who is planning to repeat a CAT scan tomorrow. He states that he vomited x1 today so came in early. No fevers. Review of Systems Ten Systems: 10 systems reviewed and negative Constitutional: denies: Fever, Chills Nose: denies: Rhinorrhea / runny nose, Congestion GI: denies: Vomiting, Diarrhea Skin: denies: Rash Musculoskeletal: denies: Neck pain, Back pain Neurologic: denies: Headache PD PAST MEDICAL HISTORY - Past Medical History Past Medical History: Yes Cardiovascular: Arrhythmia Respiratory: None Neuro: Migraines Endocrine/Autoimmune: None GI: None : None HEENT: Chronic vision loss Psych: Anxiety Musculoskeletal: Rheumatoid arthritis, Other Derm: None - Past Surgical History Past Surgical History: Yes Ortho: Arthroscopic surgery - Present Medications Home Medications: Ambulatory Orders Medication Instructions Recorded Confirmed Albuterol Sulf [Ventolin Hfa 1 - 2 puffs INH Q4HR PRN #1 inhaler 09/24/19 Inhaler] Azithromycin [Zithromax] 0 mg PO DAILY #6 tablet 09/24/19 Oxycodone HCl/Acetaminophen 1 - 2 each PO Q6H PRN #10 tablet 12/16/19 [Percocet 5-325 mg Tablet] Promethazine [Phenergan] 25 mg PO Q6H PRN #10 tab 12/16/19 predniSONE [Deltasone] 20 mg PO [id number] #21 tab 12/16/19 Fluconazole [Diflucan] 150 mg PO ONCE #2 tablet 03/19/20 HYDROmorphone [Dilaudid] 2 - 4 mg PO Q4H PRN #20 tablet 03/19/20 Omeprazole 40 mg PO DAILY #30 capsule. 03/19/20 - Allergies Allergies/Adverse Reactions: Allergies Allergy/AdvReac Type Severity Reaction Status Date / Time ketorolac tromethamine * Allergy Unknown Verified 03/19/20 05:16 [From Toradol] tramadol Allergy Unknown Verified 03/19/20 05:16 acetaminophen [From Vicodin] AdvReac severe Verified 03/19/20 05:16 headache hydrocodone bitartrate * AdvReac severe Verified 03/19/20 05:16 [From Vicodin] headache NSAIDS (Non-Steroidal AdvReac Nausea Verified 03/19/20 05:16 Anti-Inflamma oxycodone AdvReac Unknown Verified 03/19/20 05:16 - Social History Does the pt smoke?: No Smoking Status: Never smoker Does the pt drink ETOH?: Yes Does the pt have substance abuse?: No - Immunizations Immunizations are current?: Yes - POLST Patient has POLST: No PD ED PE NORMAL - Vitals Vital signs reviewed: Yes - General General: Alert and oriented X 3, No acute distress - HEENT HEENT: Moist mucous membranes - Neck Neck: Supple, no meningeal sign - Cardiac Cardiac: RRR - Respiratory Respiratory: No respiratory distress, Clear bilaterally - Abdomen Abdomen: Soft, Non distended, Other (Mild tenderness palpation along the right side of the abdomen. No peritoneal signs.) - Back Back: No CVA TTP - Derm Derm: Warm and dry - Extremities Extremities: No edema - Neuro Neuro: Alert and oriented X 3 Results - Vitals Vitals: Vital Signs - 24 hr 04/09/20 04/09/20 14:37 14:40 Temperature 36.8 C 36.8 C Heart Rate 87 87 Respiratory 16 16 Rate Blood Pressure 149/98 H 149/98 H O2 Saturation 99 99 Oxygen O2 Source Room air - Labs Labs: Laboratory Tests 04/09/20 04/09/20 15:15 15:15 WBC 10.2 RBC 4.89 Hgb 13.6 L Hct 41.4 L MCV 84.7 MCH 27.8 MCHC 32.9 RDW 13.8 Plt Count 219 MPV 10.5 Neut # (Auto) 7.1 H Lymph # (Auto) 2.1 [place] # (Auto) 0.6 Eos # (Auto) 0.3 Baso # (Auto) 0.1 Absolute Nucleated RBC 0.00 Nucleated RBC % 0.0 Sodium 137 Potassium 3.4 L Chloride 105 Carbon Dioxide 21 Anion Gap 11.0 BUN 17 Creatinine 0.6 Estimated GFR (MDRD) 152 Glucose 108 H Calcium 8.7 Total Bilirubin 0.6 AST 14 ALT 18 Alkaline Phosphatase 58 Total Protein 6.9 Albumin 3.5 Globulin 3.4 Albumin/Globulin Ratio 1.0 Lipase 30 - Rads (name of study) CT abdomen pelvis Radiology: Prelim report reviewed, EMP read contemporaneously, See rad report (No acute abnormality) PD MEDICAL DECISION MAKING - ED course Complexity details: reviewed results, re-evaluated patient, considered differential, d/w patient ED course: Patient with 2 normal CAT scans. Normal blood work. Unclear etiology of his symptoms. He received 20 tablets of 2 mg Dilaudid on March 19, [address] Heredia, another 14 tablets of 2 mg Dilaudid on 03-31-2020 from his doctor, Dr. Macedo. Unclear what we are treating with this medication. Will not refill this today. We will have him follow-up with his doctor for further care. Patient is well-appearing, nontoxic. Afebrile. Sleeping comfortably in the emergency department. Patient counseled regarding signs and symptoms for which I believe and urgent re-evaluation would be necessary. Patient with good understanding of and agreement to plan and is comfortable going home at this time This document was made in part using voice recognition software. While efforts are made to proofread this document, sound alike and grammatical errors may occur. Departure - Departure Disposition: 01 Home, Self Care Clinical Impression: Abdominal wall pain Condition: Good Instructions: ED Strain Abdominal Muscle Follow-Up: Nils Macedo DO [Primary Care Provider] - Within 3 Days Comments: Follow-up with your doctor for further care. Dr. Macedo will need to address your pain management as well. Your testing and CT scan are normal today.
[2020-04-09 15:19] LABS: BASOPHILS # (AUTO) 0.1 10^3/uL (0.0-0.1); BASOPHILS % (AUTO) 0.7 %; EOSINOPHILS # (AUTO) 0.3 10^3/uL (0.0-0.7); EOSINOPHILS % (AUTO) 2.6 %; HGB - HEMOGLOBIN 13.6 g/dL (14.0-18.0); LYMPHOCYTES # (AUTO) 2.1 10^3/uL (1.5-3.5); LYMPHOCYTES % (AUTO) 20.3 %; MEAN CORPUSCULAR HEMOGLOBIN 27.8 pg (27.0-31.0); MEAN CORPUSCULAR HGB CONC 32.9 g/dL (32.0-36.0); MEAN CORPUSCULAR VOLUME 84.7 fL (80.0-94.0); MEAN PLATELET VOLUME 10.5 fL (7.4-11.4); MONOCYTES # (AUTO) 0.6 10^3/uL (0.0-1.0); NEUTROPHILS # (AUTO) 7.1 10^3/uL (1.5-6.6); NEUTROPHILS % (AUTO) 69.7 %; PLT - PLATELET COUNT 219 10^3/uL (130-450); RED BLOOD COUNT 4.89 10^6/uL (4.70-6.10); RED CELL DISTRIBUTION WIDTH 13.8 % (12.0-15.0); WHITE BLOOD COUNT 10.2 x10^3/uL (4.8-10.8)
[2020-04-09 15:47] LABS: ALBUMIN 3.5 g/dL (3.2-5.5); BILIRUBIN,TOTAL 0.6 mg/dL (0.2-1.0); CALCIUM 8.7 mg/dL (8.5-10.3); CREATININE 0.6 mg/dL (0.6-1.2); TOTAL PROTEIN 6.9 g/dL (6.7-8.2)
--- NOTE | 2020-04-09 15:53 | CT Report ---
Reason: R flank pain Procedure Date: 04/09/2020 Accession Number: [id number] / [id number] Procedure: CT - Abdomen/Pelvis WO CPT Code: Final Report FULL RESULT: PROCEDURE: Abdomen/Pelvis WO INDICATIONS: R flank pain TECHNIQUE: Noncontrast 5 mm thick sections acquired from the diaphragms to the symphysis. 5 mm coronal and sagittal reformats were then performed. For radiation dose reduction, the following was used: automated exposure control, adjustment of mA and/or kV according to patient size. COMPARISON: CT abdomen and pelvis without contrast 03/17/2020. FINDINGS: Image quality: Excellent. ABDOMEN: Lung bases: Lung bases are clear. Heart size is normal. Solid organs: Liver and spleen are normal in size. Gallbladder is decompressed. No calcified gallstones identified. Pancreas is normal in contours. No adrenal nodules. Kidneys are normal in size, without hydronephrosis or nephrolithiasis. Peritoneum and bowel: Unenhanced bowel loops demonstrate normal wall thickness and caliber. No free fluid or air. Normal appendix. Nodes and vessels: No retroperitoneal or mesenteric adenopathy by size criteria. Aorta and inferior vena cava are normal in caliber. Miscellaneous: No ventral hernias. PELVIS: Genitourinary: Bladder wall thickness is normal. No bladder calculus. Miscellaneous: No inguinal hernias or adenopathy. 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 Right pubic symphysis bone island. No suspicious bony lesions. No vertebral body compression fractures. IMPRESSION: 1. No acute abnormality identified. No free fluid. No kidney stones. 2. Dysplastic left hip. Reviewed by: Anderson Ledesma MD on 04/09/2020 3:51 PM PDT Approved by: Anderson Ledesma MD on 04/09/2020 3:51 PM PDT Station ID: [id number]
[2020-04-09 16:18] VITALS: BP 140/74
== END 2020-04-09 16:33 | disposition home or self-care (01) ==
LOC: ED 14:22
DX: R10.9 Unspecified abdominal pain (principal); R11.2 Nausea with vomiting, unspecified
CPT/HCPCS: 36415; 74176; 80053; 83690; 85025; 99284; Q0162

== ENCOUNTER 2020-07-04 17:11 | Outpatient (CLI) | payer MEDICAID | END 2020-07-04 17:12 | disposition critical access hospital (66) | LOC: EMS 17:11 | PROVIDERS: ATTEND Surgery | DX: R42 Dizziness and giddiness (principal); R11.0 Nausea; R00.0 Tachycardia, unspecified | CPT/HCPCS: A0425; A0429; A0999 ==

== ENCOUNTER 2020-07-04 17:35 | Emergency (ER) | payer MEDICAID ==
[2020-07-04 18:07] LABS: BASOPHILS # (AUTO) 0.1 10^3/uL (0.0-0.1); BASOPHILS % (AUTO) 0.5 %; EOSINOPHILS # (AUTO) 0.2 10^3/uL (0.0-0.7); EOSINOPHILS % (AUTO) 1.4 %; HGB - HEMOGLOBIN 14.8 g/dL (14.0-18.0); LYMPHOCYTES # (AUTO) 2.9 10^3/uL (1.5-3.5); LYMPHOCYTES % (AUTO) 24.9 %; MEAN CORPUSCULAR HEMOGLOBIN 28.1 pg (27.0-31.0); MEAN CORPUSCULAR HGB CONC 33.2 g/dL (32.0-36.0); MEAN CORPUSCULAR VOLUME 84.6 fL (80.0-94.0); MEAN PLATELET VOLUME 10.7 fL (7.4-11.4); MONOCYTES # (AUTO) 0.8 10^3/uL (0.0-1.0); MONOCYTES % (AUTO) 6.7 %; NEUTROPHILS # (AUTO) 7.7 10^3/uL (1.5-6.6); PLT - PLATELET COUNT 242 10^3/uL (130-450); RED BLOOD COUNT 5.27 10^6/uL (4.70-6.10); RED CELL DISTRIBUTION WIDTH 13.5 % (12.0-15.0); WHITE BLOOD COUNT 11.7 x10^3/uL (4.8-10.8)
--- NOTE | 2020-07-04 18:08 | ED Physician Documentation ---
History of Present Illness - Stated complaint Stated Complaint: NAUSEA/DIZZINESS - Chief complaint Chief Complaint: General - Additonal information Additional information: 35-year-old male presents to the emergency department for evaluation of palpitations and feeling lightheaded and dizzy. This gentleman has multiple physical deformities for which he typically gets around using a scooter or wheelchair. 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 He thinks that he was drinking enough water but unsure at the end of his workday he was driving and began to feel lightheaded and dizzy and felt like his heart was skipping a beat. He stopped by the local fire station whom had him transported here via ems Review of Systems Constitutional: denies: Fever, Chills Cardiac: reports: Palpitations. denies: Chest pain / pressure Respiratory: denies: Dyspnea, Cough GI: denies: Abdominal Pain, Abdominal Swelling, Nausea, Vomiting, Constipation : denies: Dysuria Skin: denies: Rash, Lesions Neurologic: reports: Near syncope. denies: Syncope, Seizure, Confused Psychiatric: denies: Depressed PD PAST MEDICAL HISTORY - Past Medical History Cardiovascular: Arrhythmia Respiratory: None Neuro: Migraines Endocrine/Autoimmune: None GI: None : None HEENT: Chronic vision loss Psych: Anxiety Musculoskeletal: Rheumatoid arthritis, Other Derm: None - Past Surgical History Past Surgical History: Yes Ortho: Arthroscopic surgery - Present Medications Home Medications: Ambulatory Orders Medication Instructions Recorded Confirmed Albuterol Sulf [Ventolin Hfa 1 - 2 puffs INH Q4HR PRN #1 inhaler 09/24/19 Inhaler] Azithromycin [Zithromax] 0 mg PO DAILY #6 tablet 09/24/19 Oxycodone HCl/Acetaminophen 1 - 2 each PO Q6H PRN #10 tablet 12/16/19 [Percocet 5-325 mg Tablet] Promethazine [Phenergan] 25 mg PO Q6H PRN #10 tab 12/16/19 predniSONE [Deltasone] 20 mg PO [id number] #21 tab 12/16/19 Fluconazole [Diflucan] 150 mg PO ONCE #2 tablet 03/19/20 HYDROmorphone [Dilaudid] 2 - 4 mg PO Q4H PRN #20 tablet 03/19/20 Omeprazole 40 mg PO DAILY #30 capsule. 03/19/20 - Allergies Allergies/Adverse Reactions: Allergies Allergy/AdvReac Type Severity Reaction Status Date / Time ketorolac tromethamine * Allergy Unknown Verified 07/04/20 17:40 [From Toradol] tramadol Allergy Unknown Verified 07/04/20 17:40 acetaminophen [From Vicodin] AdvReac severe Verified 07/04/20 17:40 headache hydrocodone bitartrate * AdvReac severe Verified 07/04/20 17:40 [From Vicodin] headache NSAIDS (Non-Steroidal AdvReac Nausea Verified 07/04/20 17:40 Anti-Inflamma oxycodone AdvReac Unknown Verified 07/04/20 17:40 - Social History Does the pt smoke?: No Smoking Status: Never smoker Does the pt drink ETOH?: Yes Does the pt have substance abuse?: No - Immunizations Immunizations are current?: Yes - POLST Patient has POLST: No PD ED PE EXPANDED - General General: Alert, No acute distress, Well developed/nourished, Disheveled, poorly kept, Anxious - HEENT HEENT: Atraumatic, PERRL. No: Head injury - Cardiac Cardiac: Regular Rate, Radial strong equal, Femoral strong equal, Cap refill < 2 sec. No: Murmur Present - Respiratory Respiratory: Clear to ausultation brenda. No: Distress, Labored - Abdomen Abdomen: Normal Bowel sounds. No: Tender to palpation - Extremities Extremities: Deformity (Bilateral upper extremities contracted at wrist and elbow. Left leg in a walking brace.) - Neuro Neuro: Alert and Oriented X 3, Normal motor, Normal Sensation, Normal Speech, CNII-XII intact, Normal finger nose - GCS Eye Opening: Spontaneous Motor: Obeys Commands Verbal: Oriented Total: 15 Results - Vitals Vitals: Vital Signs - 24 hr 07/04/20 07/04/20 17:36 18:44 Temperature 37.2 C Heart Rate 82 71 Respiratory 16 16 Rate Blood Pressure 144/100 H 143/66 H O2 Saturation 99 95 Oxygen O2 Source Room air - EKG (time done) 1800 Rate: Rate (enter#) (85) Rhythm: NSR [place]: Normal Intervals: Normal [place] QRS: LVH Ischemia: Normal ST segments Compare to prior EKG: Unchanged from prior EKG Computer interpretation: Agree with computer - Labs Labs: Laboratory Tests 07/04/20 07/04/20 07/04/20 17:55 17:55 17:55 WBC 11.7 H RBC 5.27 Hgb 14.8 Hct 44.6 MCV 84.6 MCH 28.1 MCHC 33.2 RDW 13.5 Plt Count 242 MPV 10.7 Neut # (Auto) 7.7 H Lymph # (Auto) 2.9 [place] # (Auto) 0.8 Eos # (Auto) 0.2 Baso # (Auto) 0.1 Absolute Nucleated RBC 0.00 Nucleated RBC % 0.0 Sodium 137 Potassium 3.7 Chloride 102 Carbon Dioxide 22 Anion Gap 13.0 BUN 19 Creatinine 0.6 Estimated GFR (MDRD) 152 Glucose 92 Calcium 9.5 Total Bilirubin 0.6 AST 15 ALT 19 Alkaline Phosphatase 59 Troponin I High Sens 9.4 Total Protein 7.6 Albumin 4.1 Globulin 3.5 Albumin/Globulin Ratio 1.2 Lipase 24 - Rads (name of study) cxr Radiology: Final report received (Possible mild pulmonary edema versus crowding of the bronchovascular markings. Heart SADE is considered within normal limits with factors discussed above taking into account. 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 While here in the emergency department this gentleman has remained in sinus rhythm any ectopy noted. His EKG was made. High-sensitivity troponin is negative. He denies any chest pain. I have low suspicion for acs. his electrolytes are WNL. At this time he has consumed nearly 1 liter of water here in the ED. He reports feeling markedly better and wishes to be dc home. I have advised close f/u with his pcp and emergent return precautiosn discussed Departure - Departure Disposition: 01 Home, Self Care Clinical Impression: Palpitations Condition: Stable Record reviewed to determine appropriate education?: Yes Instructions: ED Palpitations Follow-Up: Nils Macedo DO [Primary Care Provider] - Comments: Herman your EKG and labs today are essentially normal. I think that you may have overexerted yourself working outside today. I would recommend that you drink plenty of fluid and get lots of rest might I suspect will be very sore tomorrow. Please schedule follow-up with your primary care doctor of this ER visit.
--- NOTE | 2020-07-04 18:09 | XRAY Report ---
PROCEDURE: Chest 1 View X-Ray INDICATIONS: Chest Pain TECHNIQUE: One view of the chest was acquired. COMPARISON: 03/19/2020 similar chest plain film FINDINGS: Surgical changes and devices: None. Lungs and pleura: No pleural effusions or pneumothorax. Lungs are difficult to accurately assess du e to large body habitus and reduced inspiratory volume. There may be a slight degree of pulmonary ana maría ma but crowding of the bronchovascular markings also could explain the mild edema pattern.. Mediastinum: Mediastinal contours appear normal. Heart size is within normal limits considering lar ge body habitus, lordotic positioning and reduced inspiration. Bones and chest wall: No suspicious bony lesions. Overlying soft tissues appear unremarkable. IMPRESSION: Limited evaluation due to body habitus and reduced inspiration. Possible mild pulmonary edema versus crowding of the bronchovascular markings. Heart size is considered within normal limits with the fact ors discussed above are taken into account. No definite source of chest pain is found. Reviewed by: Isaias Leigh MD on 07/04/2020 6:07 PM PDT Approved by: Isaias Leigh MD on 07/04/2020 6:07 PM PDT Station ID: [id number]
[2020-07-04 18:21] LABS: ALBUMIN 4.1 g/dL (3.2-5.5); ALBUMIN/GLOBULIN RATIO 1.2 (1.0-2.2); BILIRUBIN,TOTAL 0.6 mg/dL (0.2-1.0); CALCIUM 9.5 mg/dL (8.5-10.3); CREATININE 0.6 mg/dL (0.6-1.2); TOTAL PROTEIN 7.6 g/dL (6.7-8.2)
[2020-07-04 18:45] VITALS: BP 143/66
== END 2020-07-04 19:30 | disposition home or self-care (01) ==
LOC: EDUNIT# → ED 17:35
DX: R00.2 Palpitations (principal); R55 Syncope and collapse; R42 Dizziness and giddiness; I51.7 Cardiomegaly; M06.9 Rheumatoid arthritis, unspecified
CPT/HCPCS: 36415; 71045; 80053; 83690; 84484; 85025; 93005; 99284

== ENCOUNTER 2020-07-05 21:18 | Outpatient (CLI) | payer MEDICAID | END 2020-07-05 21:19 | disposition EMS.NT | LOC: EMS 21:18 | PROVIDERS: ATTEND Surgery | DX: R00.2 Palpitations (principal) ==

== ENCOUNTER 2020-09-15 20:11 | Outpatient (CLI) | payer MEDICAID | END 2020-09-15 20:12 | disposition critical access hospital (66) | LOC: EMS 20:11 | PROVIDERS: ATTEND Surgery | DX: M54.5 Low back pain (principal) | CPT/HCPCS: A0425; A0429 ==

== ENCOUNTER 2020-09-15 20:44 | Emergency (ER) | payer MEDICAID ==
[2020-09-15] MEDS ORDERED: HYDROmorphone 1 MG/ML CARPUJECT IM STA ×2 (22:38→23:43)
[2020-09-15] MEDS ORDERED: PROMETHAZINE 25 MG/1 ML VIAL IM STA (22:38)
--- NOTE | 2020-09-16 02:56 | ED Physician Documentation ---
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 - Chief complaint Chief Complaint: Trauma Ch/Bk - History obtained from History obtained from: Patient - History of Present Illness Timing - onset: Today Timing - duration: Hours Timing - details: Abrupt onset, Still present Location: Lower, Left Quality: Pain, Spasm, Sharp Associated symptoms: No: Fever, Weakness, Numbness, Incontinent of urine, Unable to urinate, Hematuria, Incontinent of stool Improves with: Rest, Position, Meds Worsened by: Movement Contributing factors: Other (trauma with twisting) Similar symptoms before: Diagnosis (sacral misallingment) Recently seen: Not recently seen - Additional information Additional information: 35-year-old male with a history of arthrogryposis is well-known to the emergency department and today he was riding his 0 turn lawnmower on a wet bank he slid down the bank and attempted to turn the machine at the bottom of the bank and it tipped over and lunged him over an 8 foot embankment. He got his brace caught in the handle of the machine but he was able to upright the machine with the help of her friend and drive her back home. When he got into his truck and drove home he found that when he got home he was unable to get out of his truck. He had a friend assist him and he has been brought to the hospital by his friend. The patient indicates that he has not had narcotic and quite some time and he has not visited the emergency department in the past 2 months. Review of Systems Constitutional: denies: Fever Eyes: denies: Decreased vision Ears: denies: Ear pain Nose: denies: Congestion Throat: denies: Sore throat Cardiac: denies: Chest pain / pressure, Palpitations Respiratory: denies: Dyspnea, Cough GI: denies: Abdominal Pain, Nausea, Vomiting : denies: Dysuria, Frequency Skin: denies: Rash Musculoskeletal: reports: Back pain. denies: Neck pain, Extremity pain, Extremity swelling Neurologic: denies: Generalized weakness, Focal weakness, Numbness PD PAST MEDICAL HISTORY - Past Medical History Cardiovascular: Arrhythmia Respiratory: None Neuro: Migraines Endocrine/Autoimmune: None GI: None : None HEENT: Chronic vision loss Psych: Anxiety Musculoskeletal: Rheumatoid arthritis, Other Derm: None - Past Surgical History Past Surgical History: Yes Ortho: Arthroscopic surgery - Present Medications Home Medications: Ambulatory Orders Medication Instructions Recorded Confirmed Albuterol Sulf [Ventolin Hfa 1 - 2 puffs INH Q4HR PRN #1 inhaler 09/24/19 Inhaler] Azithromycin [Zithromax] 0 mg PO DAILY #6 tablet 09/24/19 Oxycodone HCl/Acetaminophen 1 - 2 each PO Q6H PRN #10 tablet 12/16/19 [Percocet 5-325 mg Tablet] Promethazine [Phenergan] 25 mg PO Q6H PRN #10 tab 12/16/19 predniSONE [Deltasone] 20 mg PO [id number] #21 tab 12/16/19 Fluconazole [Diflucan] 150 mg PO ONCE #2 tablet 03/19/20 HYDROmorphone [Dilaudid] 2 - 4 mg PO Q4H PRN #20 tablet 03/19/20 Omeprazole 40 mg PO DAILY #30 capsule. 03/19/20 Carisoprodol [Soma] 350 mg PO TID PRN #20 tablet 09/16/20 HYDROmorphone [Dilaudid] 2 - 4 mg PO Q4H PRN #20 tablet 09/16/20 Promethazine [Phenergan] 25 mg PO Q6H PRN #10 tab 09/16/20 - Allergies Allergies/Adverse Reactions: Allergies Allergy/AdvReac Type Severity Reaction Status Date / Time ketorolac tromethamine * Allergy Unknown Verified 09/15/20 20:54 [From Toradol] tramadol Allergy Unknown Verified 09/15/20 20:54 acetaminophen [From Vicodin] AdvReac severe Verified 09/15/20 20:54 headache hydrocodone bitartrate * AdvReac severe Verified 09/15/20 20:54 [From Vicodin] headache NSAIDS (Non-Steroidal AdvReac Nausea Verified 09/15/20 20:54 Anti-Inflamma oxycodone AdvReac Unknown Verified 09/15/20 20:54 - Social History Does the pt smoke?: No Smoking Status: Never smoker Does the pt drink ETOH?: Yes Does the pt have substance abuse?: No - Immunizations Immunizations are current?: Yes - POLST Patient has POLST: No PD ED PE NORMAL - Vitals Vital signs reviewed: Yes (hypertensive ) - General General: Alert and oriented X 3, No acute distress, Well developed/nourished, Other (The patient is dressed in outdoor clothes and there is dirt all over the floor of the ED. He does not appear acutely injured. ) - HEENT HEENT: Atraumatic, PERRL, EOMI - Neck Neck: Supple, no meningeal sign - Cardiac Cardiac: RRR, No murmur - Respiratory Respiratory: No respiratory distress, Clear bilaterally, Other (no chest wall tenderness ) - Abdomen Abdomen: Normal bowel sounds, Soft, Non tender, Non distended, No organomegaly - Back Back: No CVA TTP, No spinal TTP, Other (There is specific tenderness to the lower lumbar spine and the SI joints bilaterally worse on the left. There is no midline tenderness above the sacrum. ) - Derm Derm: Normal color, Warm and dry, No rash - Extremities Extremities: Other (marked defromity of all 4 limbs secondary to arthrogryposis. ) - Neuro Neuro: Alert and oriented X 3, meal miller 2-12 intact, No motor deficit, No sensory deficit, Normal speech Eye Opening: Spontaneous Motor: Obeys Commands Verbal: Oriented GCS Score: 15 - Psych Psych: Normal mood, Normal affect Results - Vitals Vitals: Vital Signs - 24 hr 09/15/20 09/16/20 20:54 03:01 Temperature 37.6 C H Heart Rate 88 89 Respiratory 18 16 Rate Blood Pressure 166/112 H 149/100 H O2 Saturation 96 98 Oxygen O2 Source Room air - Rads (name of study) CT Radiology: Prelim report reviewed (Impression: No acute findings.), EMP read indepedently, See rad report PD MEDICAL DECISION MAKING - ED course Complexity details: reviewed old records, reviewed results, re-evaluated patient, considered differential, d/w patient ED course: 35-year-old male with history of arthrogryposis has flipped his riding lawnmower and he is complaining of some pain in his sacroiliac joints worse on the left than the right. He has had these pains previously and he is asking for pain medication is administered Dilaudid IM as well as Phenergan and he requires a second dose. Departure - Departure Disposition: 01 Home, Self Care Clinical Impression: Fall, accidental Qualifiers: Encounter type: initial encounter Qualified Code(s): W19.XXXA - Unspecified fall, initial encounter Sprain and strain of sacrum Qualifiers: Encounter type: initial encounter Qualified Code(s): S33.8XXA - Sprain of other parts of lumbar spine and pelvis, initial encounter Condition: Stable Instructions: ED Contusion Sacrum Coccyx Follow-Up: Nils Macedo DO [Primary Care Provider] - Prescriptions: HYDROmorphone [Dilaudid] 2 - 4 mg PO Q4H PRN #20 tablet PRN Reason: pain Promethazine [Phenergan] 25 mg PO Q6H PRN #10 tab PRN Reason: Nausea / Vomiting Carisoprodol [Soma] 350 mg PO TID PRN #20 tablet PRN Reason: Pain Discharge Date/Time: 09/16/20 03:42
[2020-09-16 03:02] VITALS: BP 149/100
[2020-09-16] MEDS ORDERED: HYDROmorphone 1 MG/ML CARPUJECT IM STA (03:23)
--- NOTE | 2020-09-16 08:48 | CT Report ---
PROCEDURE: LUMBAR SPINE WO INDICATIONS: tractor accident lower lumbar/sacral pain TECHNIQUE: Noncontrast 3 mm thick sections acquired from the T12 level to the sacrum. Sagittal and coronal refo rmats were constructed. For radiation dose reduction, the following was used: automated exposure co ntrol, adjustment of mA and/or kV according to patient size. COMPARISON: None. FINDINGS: Image quality: Excellent. Bones: There is normal bony alignment. No acute vertebral body compression fractures. No suspiciou s lytic or blastic bony lesions. Central spinal caliber is of normal overall caliber. No pars defec ts. Soft tissues: No retroperitoneal masses or hematomas. Visualized aorta is normal in caliber. IMPRESSION: No fracture. Concordant with preliminary interpretation. Reviewed by: Pedro Loredo MD on 09/16/2020 8:46 AM PST Approved by: Pedro Loredo MD on 09/16/2020 8:46 AM [facility] Station ID: [id number]
== END 2020-09-16 03:42 | disposition home or self-care (01) ==
LOC: EDUNIT# → ED 20:44
DX: S33.8XXA Sprain of other parts of lumbar spine and pelvis, initial encounter (principal); W17.89XA Other fall from one level to another, initial encounter; Y93.H9 Activity, other involving exterior property and land maintenance, building and construction; Q68.8 Other specified congenital musculoskeletal deformities
CPT/HCPCS: 72131; 96372; 96374; 99284; J1170

== ENCOUNTER 2020-09-20 22:44 | Outpatient (CLI) | payer MEDICAID | END 2020-09-20 22:45 | disposition critical access hospital (66) | LOC: EMS 22:44 | PROVIDERS: ATTEND Surgery | DX: R07.1 Chest pain on breathing (principal); M54.2 Cervicalgia; H92.03 Otalgia, bilateral | CPT/HCPCS: A0425; A0429; A0999 ==

== ENCOUNTER 2020-09-20 23:16 | Emergency (ER) | payer MEDICAID ==
[2020-09-20] MEDS ORDERED: HYDROmorphone 1 MG/ML CARPUJECT IM STA (23:43)
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
[2020-09-21] MEDS ORDERED: KETOROLAC 60 MG/2 ML VIAL IM STA (00:18)
[2020-09-21 00:30] VITALS: BP 152/92
--- NOTE | 2020-09-21 07:30 | XRAY Report ---
PROCEDURE: Chest 1 View X-Ray INDICATIONS: chest pain TECHNIQUE: One view of the chest was acquired. COMPARISON: 07/04/2020 FINDINGS: Surgical changes and devices: None. Lungs and pleura: No pleural effusions or pneumothorax. Lungs are clear. Mediastinum: Mediastinal contours appear normal. Heart size is normal. Bones and chest wall: No suspicious bony lesions. Overlying soft tissues appear unremarkable. IMPRESSION: Chest without acute cardiopulmonary abnormalities to explain patient's chest pain. No significant discrepancy with initial interpretation by overnight radiologist. Reviewed by: Gary Merritt MD on 09/21/2020 7:28 AM PST Approved by: Gary Merritt MD on 09/21/2020 7:28 AM PST Station ID: [id number]
== END 2020-09-21 01:05 | disposition home or self-care (01) ==
LOC: EDUNIT# → ED 23:16
DX: R07.1 Chest pain on breathing (principal)
CPT/HCPCS: 71045; 96372; 99283; 99285; J1170

== ENCOUNTER 2020-10-05 15:14 | Outpatient (CLI) | payer MEDICAID | END 2020-10-05 15:15 | disposition home or self-care (01) | LOC: EMS 15:14 | PROVIDERS: ATTEND Surgery | DX: M25.511 Pain in right shoulder (principal) | CPT/HCPCS: A0425; A0429; A0999 ==

== ENCOUNTER 2020-10-05 15:49 | Emergency (ER) | payer MEDICAID ==
--- NOTE | 2020-10-05 16:32 | XRAY Report ---
PROCEDURE: Shoulder 2 View RT INDICATIONS: Fall, right shoulder pain TECHNIQUE: 2 views of the shoulder were acquired. COMPARISON: None. FINDINGS: Bones: No fracture or dislocation. [id number] glenohumeral joint space narrowing and degenerati ve changes. Soft tissues: No suspicious soft tissue calcifications. IMPRESSION: No acute finding. Glenohumeral degenerative changes. Reviewed by: Jamaal Vang MD on 10/05/2020 4:30 PM PST Approved by: Jamaal Vang MD on 10/05/2020 4:30 PM PST Station ID: [id number]
--- NOTE | 2020-10-05 16:34 | ED Physician Documentation ---
History of Present Illness - Stated complaint Stated Complaint: FALL/RT SHOULDER INJ - Chief complaint Chief Complaint: Trauma Ext - Additonal information Additional information: Control 35-year-old male presents the emergency department with right posterior and lateral shoulder pain after fall down stairs at home this afternoon. No loss of consciousness. This gentleman took 3 Dilaudid tablets due to the pain and then called 911 to come to the ER. Here in the emergency department he is bargaining with this provider to write for more Dilaudid tablets. In review of the chart it appears that he received a prescription for 20 tablets on 16 September and then an additional 42 tablets on 30 September. Given the amount of Dilaudid he is using at home and his report that he took 6 mg prior to coming to the ER I do have concerns that he is misusing this medication and I have declined to write a refill. Review of Systems Constitutional: reports: Reviewed and negative Ears: reports: Reviewed and negative Nose: reports: Reviewed and negative Throat: reports: Reviewed and negative Cardiac: reports: Reviewed and negative Respiratory: reports: Reviewed and negative GI: reports: Reviewed and negative Musculoskeletal: reports: Joint pain (right shoulder), Other (multile muskileto deformity) PD PAST MEDICAL HISTORY - Past Medical History Past Medical History: Yes Cardiovascular: Arrhythmia Respiratory: None Neuro: Migraines Endocrine/Autoimmune: None GI: None : None HEENT: Chronic vision loss Psych: Anxiety Musculoskeletal: Rheumatoid arthritis, Other Derm: None - Past Surgical History Past Surgical History: Yes Ortho: Arthroscopic surgery - Present Medications Home Medications: Ambulatory Orders Medication Instructions Recorded Confirmed Albuterol Sulf [Ventolin Hfa 1 - 2 puffs INH Q4HR PRN #1 inhaler 09/24/19 Inhaler] Azithromycin [Zithromax] 0 mg PO DAILY #6 tablet 09/24/19 Oxycodone HCl/Acetaminophen 1 - 2 each PO Q6H PRN #10 tablet 12/16/19 [Percocet 5-325 mg Tablet] Promethazine [Phenergan] 25 mg PO Q6H PRN #10 tab 12/16/19 predniSONE [Deltasone] 20 mg PO [id number] #21 tab 12/16/19 Fluconazole [Diflucan] 150 mg PO ONCE #2 tablet 03/19/20 HYDROmorphone [Dilaudid] 2 - 4 mg PO Q4H PRN #20 tablet 03/19/20 Omeprazole 40 mg PO DAILY #30 capsule. 03/19/20 Carisoprodol [Soma] 350 mg PO TID PRN #20 tablet 09/16/20 HYDROmorphone [Dilaudid] 2 - 4 mg PO Q4H PRN #20 tablet 09/16/20 Promethazine [Phenergan] 25 mg PO Q6H PRN #10 tab 09/16/20 - Allergies Allergies/Adverse Reactions: Allergies Allergy/AdvReac Type Severity Reaction Status Date / Time ketorolac tromethamine * Allergy Unknown Verified 10/05/20 16:00 [From Toradol] tramadol Allergy Unknown Verified 10/05/20 16:00 acetaminophen [From Vicodin] AdvReac severe Verified 10/05/20 16:00 headache hydrocodone bitartrate * AdvReac severe Verified 10/05/20 16:00 [From Vicodin] headache NSAIDS (Non-Steroidal AdvReac Nausea Verified 10/05/20 16:00 Anti-Inflamma oxycodone AdvReac Unknown Verified 10/05/20 16:00 - Social History Does the pt smoke?: No Smoking Status: Never smoker Does the pt drink ETOH?: Yes Does the pt have substance abuse?: No - Immunizations Immunizations are current?: Yes - POLST Patient has POLST: No PD ED PE EXPANDED - General General: Alert, No acute distress - Neck Neck: No tenderness - Cardiac Cardiac: Regular Rate, Radial strong equal, Pedal strong equal, Cap refill < 2 sec - Respiratory Respiratory: Clear to ausultation brenda, Other (Full cardiopulmonary excursion). No: Distress, Labored - Extremities Extremities: Right shoulder (Reduced range of motion at the right shoulder joint secondary to pain. No deformity or erythema. Tenderness with palpation of the proximal humerus and posterior shoulder.) Results - Vitals Vitals: Vital Signs - 24 hr 10/05/20 15:55 Temperature 37.0 C Heart Rate 86 Respiratory 16 Rate Blood Pressure 159/118 H O2 Saturation 99 Oxygen O2 Source Room air - Rads (name of study) right shoulder Radiology: Final report received (No acute finding degenerative joint disease) PD MEDICAL DECISION MAKING - ED course Complexity details: reviewed results, d/w patient ED course: 35-year-old male presents to the emergency department for acute right shoulder pain after fall down some stairs. He does have a longstanding history of musculoskeletal deformity since . X-ray of the shoulder though limited did not show any acute fracture pathology. He does have noted degenerative joint disease. This gentleman is bargaining with a provider for an opiate prescription. However I do have concerns about misuse. I have declined to write a refill for his Dilaudid and have asked him to follow-up with his primary care provider. Departure - Departure Clinical Impression: Right shoulder pain Qualifiers: Chronicity: acute Qualified Code(s): M25.511 - Pain in right shoulder Condition: Stable Record reviewed to determine appropriate education?: Yes Comments: Herman the x-ray of your shoulder does not show any broken bones. You are developing arthritis in the shoulder. I cannot refill your Dilaudid today. I do have concerns that you may be misusing it. It is important that you speak with your primary care doctor about longer-term pain management.
[2020-10-05 17:14] VITALS: BP 174/108
== END 2020-10-05 17:14 | disposition home or self-care (01) ==
LOC: EDUNIT# → ED 15:49
DX: M25.511 Pain in right shoulder (principal); W10.9XXA Fall (on) (from) unspecified stairs and steps, initial encounter; Y92.009 Unspecified place in unspecified non-institutional (private) residence as the place of occurrence of the external cause; M19.011 Primary osteoarthritis, right shoulder
CPT/HCPCS: 99283; 99284

== ENCOUNTER 2020-10-29 14:19 | Emergency (ER) | payer MEDICAID ==
--- NOTE | 2020-10-29 15:36 | ED Physician Documentation ---
PD HPI ABD PAIN - Stated complaint Stated Complaint: HEMORRHOID PX - Chief complaint Chief Complaint: Abd Pain - History obtained from History obtained from: Patient - Additional information Additional information: 7-year-old man past medical history of chronic pain and multiple ED visits for opiate prescriptions presents with "hemorrhoid pain" for the past 3 months. States that he has been constipated and taking MiraLAX, but the Dilaudid is making him more constipated. Pain is in the rectal area, constant, aching, worse with sitting, severe, worse with bowel movements, associated with constipation. Denies fevers. Review of Systems Constitutional: denies: Fever, Chills PD PAST MEDICAL HISTORY - Past Medical History Past Medical History: Yes Cardiovascular: None, Arrhythmia Respiratory: None Neuro: Migraines Endocrine/Autoimmune: None GI: None : None HEENT: Chronic vision loss Psych: Anxiety Musculoskeletal: Rheumatoid arthritis, Other Derm: None - Past Surgical History Past Surgical History: Yes Ortho: Arthroscopic surgery - Present Medications Home Medications: Ambulatory Orders Medication Instructions Recorded Confirmed Albuterol Sulf [Ventolin Hfa 1 - 2 puffs INH Q4HR PRN #1 inhaler 09/24/19 Inhaler] Azithromycin [Zithromax] 0 mg PO DAILY #6 tablet 09/24/19 Oxycodone HCl/Acetaminophen 1 - 2 each PO Q6H PRN #10 tablet 12/16/19 [Percocet 5-325 mg Tablet] Promethazine [Phenergan] 25 mg PO Q6H PRN #10 tab 12/16/19 predniSONE [Deltasone] 20 mg PO [id number] #21 tab 12/16/19 Fluconazole [Diflucan] 150 mg PO ONCE #2 tablet 03/19/20 HYDROmorphone [Dilaudid] 2 - 4 mg PO Q4H PRN #20 tablet 03/19/20 Omeprazole 40 mg PO DAILY #30 capsule. 03/19/20 Carisoprodol [Soma] 350 mg PO TID PRN #20 tablet 09/16/20 HYDROmorphone [Dilaudid] 2 - 4 mg PO Q4H PRN #20 tablet 09/16/20 Promethazine [Phenergan] 25 mg PO Q6H PRN #10 tab 09/16/20 Imiquimod 1 each TP QPM 30 Days #1 cream.pack 10/29/20 - Allergies Allergies/Adverse Reactions: Allergies Allergy/AdvReac Type Severity Reaction Status Date / Time dexamethasone Allergy Anxiety Verified 10/29/20 14:34 ketorolac tromethamine * Allergy Unknown Verified 10/29/20 14:33 [From Toradol] tramadol Allergy Unknown Verified 10/29/20 14:33 acetaminophen [From Vicodin] AdvReac severe Verified 10/29/20 14:33 headache hydrocodone bitartrate * AdvReac severe Verified 10/29/20 14:33 [From Vicodin] headache NSAIDS (Non-Steroidal AdvReac Nausea Verified 10/29/20 14:33 Anti-Inflamma oxycodone AdvReac Unknown Verified 10/29/20 14:33 - Social History Does the pt smoke?: No Smoking Status: Never smoker Does the pt drink ETOH?: Yes Does the pt have substance abuse?: No - Immunizations Immunizations are current?: Yes - POLST Patient has POLST: No PD ED PE NORMAL - Vitals Vital signs reviewed: Yes - General General: Alert and oriented X 3 - HEENT HEENT: Atraumatic, PERRL, EOMI - Rectal Rectal: Other (Condyloma acuminata at the rectal verge. Tender with rectal exam. Brown stool) Results - Vitals Vitals: Vital Signs - 24 hr 10/29/20 10/29/20 14:29 16:00 Temperature 36.6 C 36.6 C Heart Rate 101 H 100 Respiratory 16 15 Rate Blood Pressure 144/97 H 140/88 H O2 Saturation 96 97 Oxygen O2 Source Room air PD MEDICAL DECISION MAKING - ED course Complexity details: reviewed results, d/w patient ED course: 35-year-old man found to have anal warts. Patient denies any sexual activity in the past. Education given about safe sex activities. We will prescribe medication to treat HPV. Strict return precautions given. 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 This is a sexually transmitted infection and I am prescribing a cream that will help heal the infection. Always use condoms when engaging in sexual activities. This will protect from infection. We sent a chlamydia and gonorrhea test as well as an HIV test that you can find the results for by checking your patient health portal on the [facility] website. You should follow-up with your primary doctor regarding these results. Return to the ED for any new or worsening symptoms. Discharge Date/Time: 10/29/20 16:07
[2020-10-29 16:07] VITALS: BP 140/88
[2020-10-31 13:26] LABS: HIV AG/AB 4TH GEN NON-REACTIVE (NON-REACTIVE)
== END 2020-10-29 16:07 | disposition home or self-care (01) ==
LOC: ED 14:19
DX: A63.0 Anogenital (venereal) warts (principal)
CPT/HCPCS: 87389; 87491; 87591; 87661; 99283

== ENCOUNTER 2021-02-01 12:11 | Emergency (ER) | payer MEDICAID ==
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
--- NOTE | 2021-02-01 13:21 | XRAY Report ---
PROCEDURE: Wrist 3 View LT INDICATIONS: TWISTED WITH PAIN DORSAL TECHNIQUE: 3 views of the wrist were acquired. COMPARISON: Right hand radiographic series dated 04/01/2019 FINDINGS: Bones: Symmetric appearance of carpal deformities secondary to prior fusion. No definite fracture id entified. Alignment is unremarkable with chronic appearing flexion at the wrist joint. No suspiciou s bony lesions. Soft tissues: No suspicious soft tissue calcifications. 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 No acute fractures or dislocation identified. If there is persistent clinical concern for a radiographically occult fracture, recommend immobilizat ion and repeat imaging in 10 to 14 days. Reviewed by: Gary Merritt MD on 02/01/2021 1:20 PM PDT Approved by: Gary Merritt MD on 02/01/2021 1:20 PM PDT Station ID: [id number]
[2021-02-01] MEDS ORDERED: PROMETHAZINE 25 MG/1 ML VIAL IM STA (13:51)
[2021-02-01] MEDS ORDERED: HYDROmorphone 1 MG/ML CARPUJECT IM STA (13:51)
[2021-02-01 14:22] VITALS: BP 146/104
--- OUTSIDE RECORDS SUMMARY | 2021-02-07 00:57 | EXTERNAL MEDICAL SUMMARY RPT | Continuity of Care Document ---
:1985 Demographics Phone Unavailable Preferred Language Unknown Marital Status Unknown Holiness Affiliation Unknown Race Unknown Ethnic Group Unknown Author Organization [facility] Address [address] [phone] Phone Social History date description facility [phone]
== END 2021-02-01 14:38 | disposition home or self-care (01) ==
LOC: ED 12:11
DX: S63.502A Unspecified sprain of left wrist, initial encounter (principal); X50.1XXA Overexertion from prolonged static or awkward postures, initial encounter; W20.8XXA Other cause of strike by thrown, projected or falling object, initial encounter; Y93.89 Activity, other specified; Y92.007 Garden or yard of unspecified non-institutional (private) residence as the place of occurrence of the external cause; Q68.8 Other specified congenital musculoskeletal deformities; L28.0 Lichen simplex chronicus
CPT/HCPCS: 73110; 96372; 99282; 99283; J1170

== ENCOUNTER 2021-07-29 19:01 | Emergency (ER) | payer MEDICAID ==
[2021-07-29] MEDS ORDERED: HYDROmorphone 2 MG TABLET PO STA (19:25)
[2021-07-29] MEDS ORDERED: PROMETHAZINE 25 MG TABLET PO STA (19:25)
--- NOTE | 2021-07-29 19:27 | ED Physician Documentation ---
PD HPI LOWER EXT INJURY - Stated complaint Stated Complaint: FALL, LEFT KNEE INJURY - Chief complaint Chief Complaint: Trauma Ext - Additional information Additional information: About 4 hours ago he slipped and fell inside his house. It was because his shoes were wet. He landed and bend the left knee wrong. No other injuries. Pain is severe. Review of Systems Ten Systems: 10 systems reviewed and negative Constitutional: reports: Reviewed and negative Cardiac: reports: Reviewed and negative Respiratory: reports: Reviewed and negative PD PAST MEDICAL HISTORY - Past Medical History Cardiovascular: None, Arrhythmia Respiratory: None Neuro: Migraines Endocrine/Autoimmune: None GI: None : None HEENT: Chronic vision loss Psych: Anxiety Musculoskeletal: Rheumatoid arthritis, Other Derm: None - Past Surgical History Past Surgical History: Yes Ortho: Arthroscopic surgery - Present Medications Home Medications: Ambulatory Orders Medication Instructions Recorded Confirmed Albuterol Sulf [Ventolin Hfa 1 - 2 puffs INH Q4HR PRN #1 inhaler 09/24/19 Inhaler] Azithromycin [Zithromax] 0 mg PO DAILY #6 tablet 09/24/19 Oxycodone HCl/Acetaminophen 1 - 2 each PO Q6H PRN #10 tablet 12/16/19 [Percocet 5-325 mg Tablet] Promethazine [Phenergan] 25 mg PO Q6H PRN #10 tab 12/16/19 predniSONE [Deltasone] 20 mg PO [id number] #21 tab 12/16/19 Fluconazole [Diflucan] 150 mg PO ONCE #2 tablet 03/19/20 HYDROmorphone [Dilaudid] 2 - 4 mg PO Q4H PRN #20 tablet 03/19/20 Omeprazole 40 mg PO DAILY #30 capsule. 03/19/20 Carisoprodol [Soma] 350 mg PO TID PRN #20 tablet 09/16/20 HYDROmorphone [Dilaudid] 2 - 4 mg PO Q4H PRN #20 tablet 09/16/20 Promethazine [Phenergan] 25 mg PO Q6H PRN #10 tab 09/16/20 Imiquimod 1 each TP QPM 30 Days #1 cream.pack 10/29/20 Oxycodone HCl/Acetaminophen 1 - 2 each PO Q6H PRN #14 tablet 07/29/21 [Percocet 5-325 mg Tablet] - Allergies Allergies/Adverse Reactions: Allergies Allergy/AdvReac Type Severity Reaction Status Date / Time dexamethasone Allergy Anxiety Verified 07/29/21 19:05 ketorolac tromethamine * Allergy Unknown Verified 07/29/21 19:05 [From Toradol] tramadol Allergy Unknown Verified 07/29/21 19:05 acetaminophen [From Vicodin] AdvReac severe Verified 07/29/21 19:05 headache hydrocodone bitartrate * AdvReac severe Verified 07/29/21 19:05 [From Vicodin] headache NSAIDS (Non-Steroidal AdvReac Nausea Verified 07/29/21 19:05 Anti-Inflamma oxycodone AdvReac Unknown Verified 07/29/21 19:05 - Social History Does the pt smoke?: No Smoking Status: Never smoker Does the pt drink ETOH?: Yes Does the pt have substance abuse?: No - Immunizations Immunizations are current?: Yes - POLST Patient has POLST: No PD ED PE NORMAL - Vitals Vital signs reviewed: Yes - General General: Alert and oriented X 3, No acute distress - Neck Neck: Supple, no meningeal sign, No bony TTP - Extremities Extremities: Other (Tender anteriorly and laterally on the left knee. He has chronic bony deformities so difficult to tell if there is a acute appearing deformity.) - Neuro Neuro: Alert and oriented X 3, Normal speech Results - Vitals Vitals: Vital Signs - 24 hr 07/29/21 07/29/21 19:05 21:21 Temperature 36.6 C Heart Rate 85 85 Respiratory 16 18 Rate Blood Pressure 145/100 H 159/113 H O2 Saturation 97 97 Oxygen O2 Source Room air - Rads (name of study) L knee XR Radiology: EMP read contemporaneously Procedures - Splint (location) LLE Splint applied by: Tech Type of splint: Fiberglass, Long leg, Stirrup Other: Patient tolerated well, No complications, Neurovascular intact PD MEDICAL DECISION MAKING - ED course ED course: 36-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 He is unable to walk or bear weight. X-ray shows no fractures but concern for patellar tendon rupture, that said difficult to interpret in the setting of his congenital abnormalities but when compared to femur x-ray on January 11, 2019 to me it doesn't seem that there is much in the way of change. He will need to be referred to orthopedics and possibly have MRI done. And he understands this. He is placed in a splint for comfort in the meantime. Departure - Departure Disposition: 01 Home, Self Care Condition: Good Record reviewed to determine appropriate education?: Yes Instructions: ED Sprain Knee Collateral Ligaments Follow-Up: Brandan Lin MD [Provider Admit Priv/Credential] - Prescriptions: Oxycodone HCl/Acetaminophen [Percocet 5-325 mg Tablet] 1 - 2 each PO Q6H PRN #14 tablet PRN Reason: pain Comments: Follow-up with your doctor tomorrow or discussed with the orthopedic surgeon, his numbers on this form. Return for new or worsening symptoms. Prescription sent electronically to [facility] in [place]. I am prescribing a short course of narcotic pain medication for you. These are potentially dangerous and addictive medications that should be used carefully. These medications may constipate you. Take an cwmq-qbu-jzphtlh stool softener (docusate) twice daily with plenty of water while taking these medications. If you go 24 hours without a bowel movement, take [id number] miralax, per package instructions. Do not drink or drive while taking these medications. If you received narcotic or sedating medications while in the emergency department, do not drive for 24 hours. Store this medication in a safe, secure place and out of reach of children. It is a violation of federal law to give or sell this medication to another person or to use in a manner other than prescribed. The ED will not refill narcotic prescriptions, including prescriptions lost or stolen. To dispose of unwanted medications: 1. [facility] at [address] in [place] has a medication drop box. They accept prescription medications (in pill form) Friday through Friday 9:00 a.m. to 5:00 p.m. 2. The [facility] [employer] accepts prescription medications (in pill form only) for disposal year round. Call for more information. 3. Contact the [facility] for the next [facility] sponsored prescription drug collection event. , [phone], or [phone]; Note that many narcotic pain relievers also contain Tylenol/acetaminophen. Please ensure that your total dose of acetaminophen from all sources does not exceed 3 g (3000 mg) per day. Discharge Date/Time: 07/29/21 21:22
[2021-07-29] MEDS ORDERED: PROMETHAZINE 25 MG/1 ML VIAL IM STA (20:50)
--- NOTE | 2021-07-29 21:00 | XRAY Report ---
PROCEDURE: Knee 4 View LT INDICATIONS: knee inj TECHNIQUE: 4 views of the left knee were acquired. COMPARISON: None. FINDINGS: Bones: No fracture. There is suspected inferolateral subluxation of the patella. There is mild joint space narrowing in the medial compartment. Soft tissues: Evaluation for joint effusion is limited due to obliquity of the lateral projection. Th e quadriceps tendon is not well visualized. IMPRESSION: 1. Suggestion of inferolateral subluxation of the patella with suspected tearing of the quadriceps te ndon. Recommend correlation clinically. Reviewed by: You Manzanares MD on 07/29/2021 8:58 PM PDT Approved by: You Manzanares MD on 07/29/2021 8:58 PM PDT Station ID: [id number]
[2021-07-29 21:22] VITALS: BP 159/113
== END 2021-07-29 21:22 | disposition home or self-care (01) ==
LOC: ED 19:01
DX: M23.92 Unspecified internal derangement of left knee (principal); W01.0XXA Fall on same level from slipping, tripping and stumbling without subsequent striking against object, initial encounter; Y92.009 Unspecified place in unspecified non-institutional (private) residence as the place of occurrence of the external cause
CPT/HCPCS: 29505; 73564; 96372; 99283; A9270; Q0169

== ENCOUNTER 2021-07-30 19:39 | Emergency (ER) | payer MEDICAID ==
[2021-07-30] MEDS ORDERED: HYDROmorphone 2 MG TABLET PO STA (20:36)
[2021-07-30] MEDS ORDERED: PROMETHAZINE 25 MG TABLET PO STA (20:36)
--- NOTE | 2021-07-30 20:37 | ED Physician Documentation ---
PD HPI LOWER EXT INJURY - Stated complaint Stated Complaint: LT KNEE REWRAPPED/PX - Chief complaint Chief Complaint: Ext Problem - History obtained from History obtained from: Patient - Additional information Additional information: 36-year-old gentleman with congenital bony abnormalities was seen last night for potential left knee internal derangements. He was splinted. Returns tonight with multiple complaints including the splint is too tight, that his primary care physician saw him today and made the knee angry. He is requesting IM pain medication. Review of Systems Constitutional: reports: Reviewed and negative Eyes: reports: Reviewed and negative Ears: reports: Reviewed and negative PD PAST MEDICAL HISTORY - Past Medical History Past Medical History: Yes Cardiovascular: None, Arrhythmia Respiratory: None Neuro: Migraines Endocrine/Autoimmune: None GI: None : None HEENT: Chronic vision loss Psych: Anxiety Musculoskeletal: Rheumatoid arthritis, Other Derm: None - Past Surgical History Past Surgical History: Yes Ortho: Arthroscopic surgery - Present Medications Home Medications: Ambulatory Orders Medication Instructions Recorded Confirmed Albuterol Sulf [Ventolin Hfa 1 - 2 puffs INH Q4HR PRN #1 inhaler 09/24/19 07/30/21 Inhaler] Azithromycin [Zithromax] 0 mg PO DAILY #6 tablet 09/24/19 07/30/21 Oxycodone HCl/Acetaminophen 1 - 2 each PO Q6H PRN #10 tablet 12/16/19 07/30/21 [Percocet 5-325 mg Tablet] Promethazine [Phenergan] 25 mg PO Q6H PRN #10 tab 12/16/19 07/30/21 predniSONE [Deltasone] 20 mg PO [id number] #21 tab 12/16/19 07/30/21 Fluconazole [Diflucan] 150 mg PO ONCE #2 tablet 03/19/20 07/30/21 HYDROmorphone [Dilaudid] 2 - 4 mg PO Q4H PRN #20 tablet 03/19/20 07/30/21 Omeprazole 40 mg PO DAILY #30 capsule. 03/19/20 07/30/21 Carisoprodol [Soma] 350 mg PO TID PRN #20 tablet 09/16/20 07/30/21 HYDROmorphone [Dilaudid] 2 - 4 mg PO Q4H PRN #20 tablet 09/16/20 07/30/21 Promethazine [Phenergan] 25 mg PO Q6H PRN #10 tab 09/16/20 07/30/21 Imiquimod 1 each TP QPM 30 Days #1 cream.pack 10/29/20 07/30/21 Oxycodone HCl/Acetaminophen 1 - 2 each PO Q6H PRN #14 tablet 07/29/21 07/30/21 [Percocet 5-325 mg Tablet] - Allergies Allergies/Adverse Reactions: Allergies Allergy/AdvReac Type Severity Reaction Status Date / Time dexamethasone Allergy Anxiety Verified 07/29/21 19:05 ketorolac tromethamine * Allergy Unknown Verified 07/29/21 19:05 [From Toradol] tramadol Allergy Unknown Verified 07/29/21 19:05 acetaminophen [From Vicodin] AdvReac severe Verified 07/29/21 19:05 headache hydrocodone bitartrate * AdvReac severe Verified 07/29/21 19:05 [From Vicodin] headache NSAIDS (Non-Steroidal AdvReac Nausea Verified 07/29/21 19:05 Anti-Inflamma oxycodone AdvReac Unknown Verified 07/29/21 19:05 - Social History Does the pt smoke?: No Smoking Status: Never smoker Does the pt drink ETOH?: Yes Does the pt have substance abuse?: No - Immunizations Immunizations are current?: Yes - POLST Patient has POLST: No PD ED PE NORMAL - Vitals Vital signs reviewed: Yes - General General: Alert and oriented X 3 (On initial evaluation after I introduced myself he growls at me) - Extremities Extremities: Other (Left lower extremity is in a splint that was removed. His examination has not otherwise changed since yesterday.) - Neuro Neuro: Alert and oriented X 3, Normal speech Results - Vitals Vitals: Vital Signs - 24 hr 07/30/21 07/30/21 20:01 21:13 Temperature 37.0 C 37.3 C Heart Rate 97 93 Respiratory 16 16 Rate Blood Pressure 167/101 H 154/92 H O2 Saturation 100 94 Oxygen O2 Source Room air Procedures - Splint (location) LLE Splint applied by: Physician, Tech Type of splint: Long leg (Leg splint was fashioned using copious cotton under wrapped with 6 inch Ortho-Glass in a stirrup and posterior fashion which felt much better for him.) PD MEDICAL DECISION MAKING - ED course ED course: 36-year-old gentleman presents requesting his knee be rewrapped and we will of course replace the splint. Initially he was pressuring me for IM pain medication. We discussed this and past behaviors and he admits that he is "trying to be less of a jerk than in the past." Departure - Departure Disposition: 01 Home, Self Care Clinical Impression: Acute internal derangement of left knee Condition: Good Record reviewed to determine appropriate education?: Yes Instructions: ED Sprain Knee Collateral Ligaments Comments: Keep the splint on and dry, return if you worsen, otherwise follow-up with orthopedics as you are already planning. Elevate the leg is much as possible. Discharge Date/Time: 07/30/21 21:14
[2021-07-30 21:14] VITALS: BP 154/92
== END 2021-07-30 21:14 | disposition home or self-care (01) ==
LOC: ED 19:39
DX: M23.92 Unspecified internal derangement of left knee (principal)
CPT/HCPCS: 29505; 99282; A9270; Q0169

== ENCOUNTER 2021-10-04 00:25 | Outpatient (CLI) | payer MEDICAID | END 2021-10-04 00:26 | disposition EMS.NT | LOC: EMS 00:25 | DX: R10.13 Epigastric pain (principal) ==

== ENCOUNTER 2021-10-17 22:34 | Outpatient (CLI) | payer MEDICAID | END 2021-10-17 22:35 | disposition EMS.NT | LOC: EMS 22:34 | DX: M79.605 Pain in left leg (principal); M79.604 Pain in right leg; R44.8 Other symptoms and signs involving general sensations and perceptions ==

== ENCOUNTER 2021-12-30 18:53 | Outpatient (CLI) | payer MEDICAID | END 2021-12-30 18:54 | disposition EMS.NT | LOC: EMS 18:53 | DX: R00.0 Tachycardia, unspecified (principal); R20.2 Paresthesia of skin; F41.9 Anxiety disorder, unspecified ==

== ENCOUNTER 2022-02-18 11:11 | Emergency (ER) | payer MEDICAID ==
[2022-02-18] MEDS ORDERED: PROMETHAZINE 25 MG/1 ML VIAL IM STA (13:14)
[2022-02-18] MEDS ORDERED: HYDROmorphone 1 MG/ML CARPUJECT IM STA (13:14)
--- NOTE | 2022-02-18 13:20 | ED Physician Documentation ---
PD HPI LOWER EXT INJURY - Stated complaint Stated Complaint: RT KNEE PX - Chief complaint Chief Complaint: Ext Problem - History obtained from History obtained from: Patient - Additional information Additional information: The patient comes to the emergency department with chief complaint of right knee pain after an injury 5 weeks ago. The patient states that he was going through a doorway in his wheelchair and that he hit his knee on the edge of the doorway, causing his patella to dislocate and tracking correctly. He has already seen orthopedics for this and had a CT and been told that they can do a knee replacement but he may never walk again if they do. The patient states that he is here because his Dilaudid was spilled by his brother, who was bringing him a tray of food a couple of days ago, he states. The patient states he left the bottle unscrewed and that the pill bottle fell to the surface of the deck, where the patient was eating, and the pills fell through the cracks. Patient states his brother was able to save 1 pill, which the patient took yesterday. He states that he is hoping to get his Dilaudid refilled until he can see his primary doctor in 3 days. He would also like a dose of pain medication here. Patient denies other complaints at this time. Review of Systems Ten Systems: 10 systems reviewed and negative Constitutional: reports: Reviewed and negative Eyes: reports: Reviewed and negative Ears: reports: Reviewed and negative Nose: reports: Reviewed and negative Throat: reports: Reviewed and negative Cardiac: reports: Reviewed and negative Respiratory: reports: Reviewed and negative GI: reports: Reviewed and negative : reports: Reviewed and negative Skin: reports: Reviewed and negative Musculoskeletal: reports: Joint pain Neurologic: reports: Reviewed and negative Psychiatric: reports: Reviewed and negative Endocrine: reports: Reviewed and negative Immunocompromised: reports: Reviewed and negative PD PAST MEDICAL HISTORY - Past Medical History Past Medical History: Yes Cardiovascular: Arrhythmia Respiratory: Asthma Neuro: Migraines Endocrine/Autoimmune: None GI: GERD : None HEENT: Chronic vision loss Psych: Anxiety Musculoskeletal: Rheumatoid arthritis, Other Derm: None - Past Surgical History Past Surgical History: Yes Ortho: Arthroscopic surgery - Present Medications Home Medications: Ambulatory Orders Medication Instructions Recorded Confirmed Albuterol Sulf [Ventolin Hfa 1 - 2 puffs INH Q4HR PRN #1 inhaler 09/24/19 02/18/22 Inhaler] - Allergies Allergies/Adverse Reactions: Allergies Allergy/AdvReac Type Severity Reaction Status Date / Time dexamethasone Allergy Anxiety Verified 02/18/22 11:37 ketorolac tromethamine * Allergy Unknown Verified 02/18/22 11:37 [From Toradol] tramadol Allergy Unknown Verified 02/18/22 11:37 acetaminophen [From Vicodin] AdvReac severe Verified 02/18/22 11:37 headache hydrocodone bitartrate * AdvReac severe Verified 02/18/22 11:37 [From Vicodin] headache NSAIDS (Non-Steroidal AdvReac Nausea Verified 02/18/22 11:37 Anti-Inflamma oxycodone AdvReac Unknown Verified 02/18/22 11:37 - Social History Does the pt smoke?: No Smoking Status: Former smoker Does the pt drink ETOH?: Yes Does the pt have substance abuse?: No - Immunizations Immunizations are current?: Yes - POLST Patient has POLST: No PD ED PE NORMAL - Vitals Vital signs reviewed: Yes - General General: Alert and oriented X 3, No acute distress, Well developed/nourished - HEENT HEENT: Atraumatic, PERRL, EOMI, Moist mucous membranes - Neck Neck: Supple, no meningeal sign - Respiratory Respiratory: No respiratory distress - Derm Derm: Normal color, Warm and dry, No rash - Extremities Extremities: Other (Tenderness over medial aspect of right knee without obvious acute deformity. Mild edema. No contusion.) - Neuro Neuro: Alert and oriented X 3, critical care paramedic 2-12 intact, Normal speech - Psych Psych: Normal mood, Normal affect Results - Vitals Vitals: Vital Signs - 24 hr 02/18/22 11:37 Temperature 37.2 C Heart Rate 98 Respiratory 18 Rate Blood Pressure 173/113 H O2 Saturation 98 Oxygen O2 Source Room air PD MEDICAL DECISION MAKING - ED course Complexity details: considered differential, d/w patient ED course: I discussed with the patient that we do not refill chronic narcotics from the ED, especially Dilaudid. He has been treated symptomatically in the emergency department. I have advised him to call his doctor's office if he would like a refill on his medications sooner than 3 days from now. Departure - Departure Disposition: 01 Home, Self Care Clinical Impression: Knee pain Qualifiers: Chronicity: chronic Laterality: right Qualified Code(s): M25.561 - Pain in right knee; G89.29 - Other chronic pain Condition: Stable Instructions: ED Knee Pain UKO Comments: You have been treated today for your pain in the emergency department. Please call your primary doctor's office to discuss further pain management at home. We do not refill chronic pain medication in the emergency department, and in particular, we do not prescribe oral Dilaudid out of the ED. You will need to ask your doctor if he can send in a prescription for your Dilaudid in advance of your appointment on . Please continue your plans to follow-up with orthopedics.
[2022-02-18 13:59] VITALS: BP 163/112
== END 2022-02-18 13:58 | disposition home or self-care (01) ==
LOC: ED 11:11
DX: M25.561 Pain in right knee (principal); G89.29 Other chronic pain; Z87.891 Personal history of nicotine dependence
CPT/HCPCS: 96372; 99282; 99283; J1170

== ENCOUNTER 2022-03-05 23:07 | Outpatient (CLI) | payer MEDICAID | END 2022-03-05 23:08 | disposition left against medical advice (07) | LOC: EMS 23:07 | DX: M54.9 Dorsalgia, unspecified (principal); R00.0 Tachycardia, unspecified; F41.9 Anxiety disorder, unspecified ==

== ENCOUNTER 2022-03-11 19:25 | Outpatient (CLI) | payer MEDICAID | END 2022-03-11 19:26 | disposition EMS.NT | LOC: EMS 19:25 | DX: R07.89 Other chest pain (principal) ==

== ENCOUNTER 2022-06-03 22:54 | Emergency (ER) | payer MEDICAID ==
--- NOTE | 2022-06-04 00:19 | XRAY Report ---
PROCEDURE: Chest 1 View X-Ray INDICATIONS: CP TECHNIQUE: One view of the chest was acquired. COMPARISON: 09/20/2020, 07/04/2020 FINDINGS: Surgical changes and devices: None. Lungs and pleura: No pleural effusions or pneumothorax. Lungs are clear. Mediastinum: Mediastinal contours appear normal. Heart size is normal. Bones and chest wall: No suspicious bony lesions. Overlying soft tissues appear unremarkable. IMPRESSION: 1. No acute cardiopulmonary disease. Reviewed by: You Rodriguez MD on 06/04/2022 12:18 AM PDT Approved by: You Rodriguez MD on 06/04/2022 12:18 AM PDT Station ID: [id number]
[2022-06-04 00:45] LABS: BASOPHILS # (AUTO) 0.1 10^3/uL (0.0-0.1); BASOPHILS % (AUTO) 0.8 %; EOSINOPHILS # (AUTO) 0.3 10^3/uL (0.0-0.7); EOSINOPHILS % (AUTO) 2.2 %; HCT - HEMATOCRIT 42.3 % (42.0-52.0); HGB - HEMOGLOBIN 13.6 g/dL (14.0-18.0); LYMPHOCYTES # (AUTO) 2.5 10^3/uL (1.5-3.5); LYMPHOCYTES % (AUTO) 22.2 %; MEAN CORPUSCULAR HEMOGLOBIN 26.8 pg (27.0-31.0); MEAN CORPUSCULAR HGB CONC 32.2 g/dL (32.0-36.0); MEAN CORPUSCULAR VOLUME 83.3 fL (80.0-94.0); MEAN PLATELET VOLUME 10.6 fL (7.4-11.4); MONOCYTES # (AUTO) 0.9 10^3/uL (0.0-1.0); MONOCYTES % (AUTO) 7.9 %; NEUTROPHILS # (AUTO) 7.5 10^3/uL (1.5-6.6); NEUTROPHILS % (AUTO) 66.4 %; PLT - PLATELET COUNT 254 10^3/uL (130-450); RED BLOOD COUNT 5.08 10^6/uL (4.70-6.10); RED CELL DISTRIBUTION WIDTH 13.7 % (12.0-15.0); WHITE BLOOD COUNT 11.3 x10^3/uL (4.8-10.8)
[2022-06-04 01:02] LABS: ALBUMIN 3.6 g/dL (3.2-5.5); ALBUMIN/GLOBULIN RATIO 0.9 (1.0-2.2); BILIRUBIN,TOTAL 0.6 mg/dL (0.2-1.0); CALCIUM 8.8 mg/dL (8.5-10.3); CREATININE 0.5 mg/dL (0.6-1.2); MAGNESIUM 2.2 mg/dL (1.7-2.8); POTASSIUM 3.3 mmol/L (3.5-5.0); TOTAL PROTEIN 7.4 g/dL (6.7-8.2)
[2022-06-04] MEDS ORDERED: POTASSIUM CHLORIDE 20 MEQ TABLET PO STA (01:26)
--- NOTE | 2022-06-04 01:32 | ED Physician Documentation ---
History of Present Illness - Stated complaint Stated Complaint: CHEST PX - Chief complaint Chief Complaint: General - History obtained from History obtained from: Patient - Additonal information Additional information: Patient is a 37-year-old male with History of congenital bony abnormalities and chronic pain presenting for evaluation of palpitations, chest pain and feeling flushed earlier today. Patient reports he was just sitting down when the symptoms started around 8 PM. It lasted 10 to 15 minutes and has improved. He denies feeling dizziness or lightheadedness. He describes the palpitations as feeling his heart pounding and feeling discomfort. The pain did not radiate. He denies difficulty breathing, cough, abdominal pain, vomiting or diarrhea.He denies a history of coronary artery disease, hypertension, diabetes or hyperlipidemia. He denies drug use. Review of Systems Constitutional: denies: Fever Nose: denies: Congestion Throat: denies: Sore throat Cardiac: reports: Chest pain / pressure, Palpitations Respiratory: denies: Dyspnea GI: denies: Abdominal Pain : denies: Dysuria Skin: denies: Rash Musculoskeletal: denies: Neck pain Neurologic: denies: Headache PD PAST MEDICAL HISTORY - Past Medical History Cardiovascular: Arrhythmia Respiratory: Asthma Neuro: Migraines Endocrine/Autoimmune: None GI: GERD : None HEENT: Chronic vision loss Psych: Anxiety Musculoskeletal: Rheumatoid arthritis, Other Derm: None - Past Surgical History Past Surgical History: Yes Ortho: Arthroscopic surgery - Present Medications Home Medications: Ambulatory Orders Medication Instructions Recorded Confirmed Albuterol Sulf [Ventolin Hfa 1 - 2 puffs INH Q4HR PRN #1 inhaler 09/24/19 02/18/22 Inhaler] - Allergies Allergies/Adverse Reactions: Allergies Allergy/AdvReac Type Severity Reaction Status Date / Time dexamethasone Allergy Anxiety Verified 06/03/22 22:57 ketorolac tromethamine * Allergy Unknown Verified 06/03/22 22:57 [From Toradol] tramadol Allergy Unknown Verified 06/03/22 22:57 acetaminophen [From Vicodin] AdvReac severe Verified 06/03/22 22:57 headache hydrocodone bitartrate * AdvReac severe Verified 06/03/22 22:57 [From Vicodin] headache NSAIDS (Non-Steroidal AdvReac Nausea Verified 06/03/22 22:57 Anti-Inflamma oxycodone AdvReac Unknown Verified 06/03/22 22:57 - Social History Does the pt smoke?: No Smoking Status: Former smoker Does the pt drink ETOH?: Yes Does the pt have substance abuse?: No - Immunizations Immunizations are current?: Yes - POLST Patient has POLST: No PD ED PE NORMAL - General General: Alert and oriented X 3, No acute distress, Well developed/nourished - HEENT HEENT: Atraumatic, Moist mucous membranes - Neck Neck: Supple, no meningeal sign - Cardiac Cardiac: RRR, No murmur, Strong equal pulses - Respiratory Respiratory: No respiratory distress, Clear bilaterally - Abdomen Abdomen: Normal bowel sounds, Soft, Non tender, Non distended - Derm Derm: Warm and dry - Extremities Extremities: No edema - Neuro Neuro: Normal speech Results - Vitals Vitals: Vital Signs - 24 hr 06/03/22 06/04/22 22:57 01:00 Temperature 37.3 C Heart Rate 100 81 Respiratory 16 20 Rate Blood Pressure 180/100 H 148/98 H O2 Saturation 98 95 Oxygen O2 Source Room air - EKG (time done) 2321 Rate: Rate (enter#) (105) Rhythm: Sinus tachycardia Intervals: Other (QTC 44) Ischemia: No: ST elevation c/w ischemia - Labs Labs: Laboratory Tests 06/04/22 06/04/22 06/04/22 00:34 00:34 00:34 WBC 11.3 H RBC 5.08 Hgb 13.6 L Hct 42.3 MCV 83.3 MCH 26.8 L MCHC 32.2 RDW 13.7 Plt Count 254 MPV 10.6 Neut # (Auto) 7.5 H Lymph # (Auto) 2.5 [place] # (Auto) 0.9 Eos # (Auto) 0.3 Baso # (Auto) 0.1 Absolute Nucleated RBC 0.00 Nucleated RBC % 0.0 Sodium 136 Potassium 3.3 L Chloride 104 Carbon Dioxide 22 Anion Gap 10.0 BUN 21 H Creatinine 0.5 L Estimated GFR (MDRD) 185 Glucose 135 H Calcium 8.8 Magnesium 2.2 Total Bilirubin 0.6 AST 14 ALT 18 Alkaline Phosphatase 60 Troponin I High Sens 5.7 Total Protein 7.4 Albumin 3.6 Globulin 3.8 Albumin/Globulin Ratio 0.9 L Lipase 31 TSH 06/04/22 00:34 WBC RBC Hgb Hct MCV MCH MCHC RDW Plt Count MPV Neut # (Auto) Lymph # (Auto) [place] # (Auto) Eos # (Auto) Baso # (Auto) Absolute Nucleated RBC Nucleated RBC % Sodium Potassium Chloride Carbon Dioxide Anion Gap BUN Creatinine Estimated GFR (MDRD) Glucose Calcium Magnesium Total Bilirubin AST ALT Alkaline Phosphatase Troponin I High Sens Total Protein Albumin Globulin Albumin/Globulin Ratio Lipase TSH 2.24 PD MEDICAL DECISION MAKING - ED course Complexity details: reviewed results, re-evaluated patient, d/w patient ED course: Patient presenting for evaluation of an episode of palpitations and chest pain that occurred several hours ago. His symptoms have resolved upon arrival to the emergency department. He is low risk for ACS per the heart score. EKG reviewed and high-sensitivity troponin is negative With episode occurring several hours prior to lab draw.Doubt pulmonary embolism Or dissection as symptoms have improved. Initial blood pressure is elevated but repeat is improved. Patient is symptom-free here and is comfortable with plan for close follow-up with PCP as well as aware of return precautions. Departure - Departure Disposition: 01 Home, Self Care Clinical Impression: Palpitations, Elevated blood pressure reading Chest pain Qualifiers: Chest pain type: unspecified Qualified Code(s): R07.9 - Chest pain, unspecified Condition: Stable Instructions: ED Chest Pain Atypical Unkn Cause, ED Palpitations Comments: The exact cause of your symptoms at this time is unclear. We did check your heart and at this time there were no signs of a heart attack but you should still have close follow-up with your primary care doctor as you may need further testing to evaluate your heart such as a stress test.Your blood pressure was also noticed to be elevated in the emergency department. Please follow-up with your doctor regarding your blood pressure. You have a Covid test pending. You need to self quarantine until the result is done and negative. Do not leave your house. Do not get near anybody. The results should be done in 48 to 72 hours. We will call with a positive result, the fastest way to get a negative result for confirmation though is to go to the hospital website at [email or web address], click on the my [email or web address] tab and sign up for the patient portal. If any friends or family get sick and would like to have a Covid test done, but do not have signs or symptoms that would necessitate being hospitalized, there are multiple local options for Covid testing. [facility] keeps an updated list of testing and vaccination options at: [email or web address]. If you have any worsening symptoms please return to the emergency department. Discharge Date/Time: 06/04/22 02:04
[2022-06-04 01:49] VITALS: BP 148/98
== END 2022-06-04 02:04 | disposition home or self-care (01) ==
LOC: ED 22:54
DX: R00.2 Palpitations (principal); R07.9 Chest pain, unspecified; R03.0 Elevated blood-pressure reading, without diagnosis of hypertension; Z87.891 Personal history of nicotine dependence; Z20.822 Contact with and (suspected) exposure to COVID-19
CPT/HCPCS: 36415; 71045; 80053; 83690; 83735; 84443; 84484; 85025; 87635; 93005; 99284; A9270

== ENCOUNTER 2022-07-23 19:47 | Emergency (ER) | payer MEDICAID ==
[2022-07-23 21:58] LABS: RAPID STREP SCREEN Negative (Negative)
--- NOTE | 2022-07-23 21:59 | XRAY Report ---
PROCEDURE: Chest 1 View X-Ray INDICATIONS: SOA TECHNIQUE: One view of the chest was acquired. COMPARISON: 06/03/2022 FINDINGS: Surgical changes and devices: None. Lungs and pleura: No pleural effusions or pneumothorax. Lungs are clear. Mediastinum: Mediastinal contours appear unchanged. Heart size is at upper limits of normal. Bones and chest wall: No suspicious bony lesions. Overlying soft tissues appear unremarkable. IMPRESSION: 1. No acute cardiopulmonary disease. Reviewed by: You Rodriguez MD on 07/23/2022 9:58 PM PDT Approved by: You Rodriguez MD on 07/23/2022 9:58 PM PDT Station ID: [id number]
[2022-07-23 22:07] VITALS: BP 160/90
--- NOTE | 2022-07-23 22:37 | ED Physician Documentation ---
PD HPI URI - Stated complaint Stated Complaint: SOA - Chief complaint Chief Complaint: Resp - History obtained from History obtained from: Patient - Additional information Additional information: Patient is a 37-year-old male with history of congenital bony abnormalities and chronic pain presenting for evaluation of sore throat, productive cough and shortness of breath has been present for 2 days. Patient reports concern as he is prone to pneumonia and bronchitis. He reports his cough is been productive of small amounts of green sputum with no blood. He reports he feels short of breath only when he is coughing. He also describes throat discomfort but has been able to tolerate p.o. intake. He denies chest pain, fevers, abdominal symptoms.Patient has not taken anything for his symptoms. Review of Systems Constitutional: denies: Fever Nose: denies: Congestion Throat: reports: Sore throat Cardiac: denies: Chest pain / pressure, Palpitations Respiratory: reports: Dyspnea, Cough GI: denies: Abdominal Pain, Vomiting : denies: Dysuria Musculoskeletal: denies: Back pain Neurologic: denies: Headache PD PAST MEDICAL HISTORY - Past Medical History Cardiovascular: Arrhythmia Respiratory: Asthma Neuro: Migraines Endocrine/Autoimmune: None GI: GERD : None HEENT: Chronic vision loss Psych: Anxiety Musculoskeletal: Rheumatoid arthritis, Other Derm: None - Past Surgical History Past Surgical History: Yes Ortho: Arthroscopic surgery - Present Medications Home Medications: Ambulatory Orders Medication Instructions Recorded Confirmed Albuterol Sulf [Ventolin Hfa 1 - 2 puffs INH Q4HR PRN #1 inhaler 09/24/19 02/18/22 Inhaler] Albuterol Sulf [Ventolin Hfa 1 - 2 puffs INH Q4HR PRN #1 gm 07/23/22 Inhaler] - Allergies Allergies/Adverse Reactions: Allergies Allergy/AdvReac Type Severity Reaction Status Date / Time dexamethasone Allergy Anxiety Verified 06/03/22 22:57 ketorolac tromethamine * Allergy Unknown Verified 06/03/22 22:57 [From Toradol] tramadol Allergy Unknown Verified 06/03/22 22:57 acetaminophen [From Vicodin] AdvReac severe Verified 06/03/22 22:57 headache hydrocodone bitartrate * AdvReac severe Verified 06/03/22 22:57 [From Vicodin] headache NSAIDS (Non-Steroidal AdvReac Nausea Verified 06/03/22 22:57 Anti-Inflamma oxycodone AdvReac Unknown Verified 06/03/22 22:57 - Social History Does the pt smoke?: No Smoking Status: Former smoker Does the pt drink ETOH?: Yes Does the pt have substance abuse?: No - Immunizations Immunizations are current?: Yes - POLST Patient has POLST: No PD ED PE NORMAL - General General: Alert and oriented X 3, No acute distress, Well developed/nourished - HEENT HEENT: Atraumatic, Moist mucous membranes, Pharynx benign - Neck Neck: Supple, no meningeal sign - Cardiac Cardiac: RRR, No murmur, Strong equal pulses - Respiratory Respiratory: No respiratory distress, Clear bilaterally (No rhonchi, wheezes or rales) - Abdomen Abdomen: Normal bowel sounds, Soft, Non tender, Non distended - Derm Derm: Warm and dry - Extremities Extremities: No calf tenderness / cord - Neuro Neuro: Normal speech Results - Vitals Vitals: Vital Signs - 24 hr 07/23/22 07/23/22 07/23/22 19:58 20:02 22:02 Temperature 36.8 C 36.8 C Heart Rate 103 H 103 H 84 Respiratory 24 24 16 Rate Blood Pressure 186/112 H 186/112 H 160/90 H O2 Saturation 97 97 96 Oxygen O2 Source Room air - EKG (time done) 2007 Rate: Rate (enter#) (101) Rhythm: Sinus tachycardia QRS: LVH Ischemia: No: ST elevation c/w ischemia - Labs Labs: Laboratory Tests 07/23/22 07/23/22 21:37 21:37 SARS-CoV-2 (PCR) NOT DETECTED Group A Strep Rapid Negative PD MEDICAL DECISION MAKING - ED course Complexity details: reviewed results, re-evaluated patient, d/w patient, d/w family ED course: Patient presenting for evaluation of URI symptoms with productive cough and sore throat. Overall he is well-appearing with clear lung sounds and normal oxygenation. Chest x-ray is clear with no signs of pneumonia. Strep test is negative. EKG was done at triage but patient denies having chest pain or sympt oms that would suggest ACS Or PE.COVID swab is pending. Patient reports using albuterol at times when he has had similar symptoms in the past and requests a refill of his albuterol inhaler.Does not appear to need a breathing treatment while here. He was counseled on concerning symptoms to return for. Departure - Departure Disposition: 01 Home, Self Care Clinical Impression: Upper respiratory infection Qualifiers: URI type: unspecified URI Qualified Code(s): J06.9 - Acute upper respiratory infection, unspecified Condition: Stable Instructions: ED Viral Syndrome Prescriptions: Albuterol Sulf [Ventolin Hfa Inhaler] 1 - 2 puffs INH Q4HR PRN #1 gm PRN Reason: Shortness Of Air/Wheezing Comments: You were evaluated for a cough. Your chest x-ray is clear and there are no signs of pneumonia. A strep test was performed and is negative. A COVID test is pending. I have sent a refill of your albuterol inhaler to [facility] in [place]. If you have any worsening symptoms please consider return to the emergency department. You have a Covid test pending. You need to self quarantine until the result is done and negative. Do not leave your house. Do not get near anybody. The results should be done in 48 to 72 hours. We will call with a positive result, the fastest way to get a negative result for confirmation though is to go to the hospital website at [email or web address], click on the my [employer] tab and sign up for the patient portal. If any friends or family get sick and would like to have a Covid test done, but do not have signs or symptoms that would necessitate being hospitalized, there are multiple local options for Covid testing. [facility] keeps an updated list of testing and vaccination options at: [email or web address]. Discharge Date/Time: 07/23/22 22:45
== END 2022-07-23 22:45 | disposition home or self-care (01) ==
LOC: ED 19:47
DX: J06.9 Acute upper respiratory infection, unspecified (principal); Z87.891 Personal history of nicotine dependence; Z20.822 Contact with and (suspected) exposure to COVID-19
CPT/HCPCS: 87070; 87430; 93005; 99282; 99284

== ENCOUNTER 2022-08-20 05:52 | Outpatient (CLI) | payer MEDICAID | END 2022-08-20 05:53 | disposition left against medical advice (07) | LOC: EMS 05:52 | DX: M79.601 Pain in right arm (principal); R51.9 Headache, unspecified ==

== ENCOUNTER 2022-08-20 20:59 | Emergency (ER) | payer MEDICAID ==
[2022-08-20] MEDS ORDERED: LOPERAMIDE 2 MG CAPSULE PO STA (23:32)
--- NOTE | 2022-08-20 23:33 | ED Physician Documentation ---
History of Present Illness - Stated complaint Stated Complaint: DIARRHEA - Chief complaint Chief Complaint: General - History obtained from History obtained from: Patient - Additonal information Additional information: 37yM p/w multiple episodes of nonbloody diarrhea today. patient requesting we give him a shower and clean his car, which is covered in stool. no other complaints at this time. denies n/v, fever, abd pain. Review of Systems Ten Systems: 10 systems reviewed and negative Constitutional: denies: Fever, Chills GI: reports: Diarrhea. denies: Abdominal Pain, Nausea, Vomiting PD PAST MEDICAL HISTORY - Past Medical History Past Medical History: Yes Cardiovascular: Arrhythmia Respiratory: Asthma Neuro: Migraines Endocrine/Autoimmune: None GI: GERD : None HEENT: Chronic vision loss Psych: Anxiety Musculoskeletal: Rheumatoid arthritis, Other Derm: None - Past Surgical History Past Surgical History: Yes Ortho: Arthroscopic surgery - Present Medications Home Medications: Ambulatory Orders Medication Instructions Recorded Confirmed Albuterol Sulf [Ventolin Hfa 1 - 2 puffs INH Q4HR PRN #1 inhaler 09/24/19 02/18/22 Inhaler] Albuterol Sulf [Ventolin Hfa 1 - 2 puffs INH Q4HR PRN #1 gm 07/23/22 Inhaler] Loperamide [Imodium] 2 mg PO QID PRN #10 tab 08/20/22 - Allergies Allergies/Adverse Reactions: Allergies Allergy/AdvReac Type Severity Reaction Status Date / Time dexamethasone Allergy Anxiety Verified 06/03/22 22:57 ketorolac tromethamine * Allergy Unknown Verified 06/03/22 22:57 [From Toradol] tramadol Allergy Unknown Verified 06/03/22 22:57 acetaminophen [From Vicodin] AdvReac severe Verified 06/03/22 22:57 headache hydrocodone bitartrate * AdvReac severe Verified 06/03/22 22:57 [From Vicodin] headache NSAIDS (Non-Steroidal AdvReac Nausea Verified 06/03/22 22:57 Anti-Inflamma oxycodone AdvReac Unknown Verified 06/03/22 22:57 - Social History Does the pt smoke?: No Smoking Status: Never smoker Does the pt drink ETOH?: Yes Does the pt have substance abuse?: No - Immunizations Immunizations are current?: Yes - POLST Patient has POLST: No PD ED PE NORMAL - Vitals Vital signs reviewed: Yes - General General: Alert and oriented X 3, No acute distress - Cardiac Cardiac: RRR - Respiratory Respiratory: No respiratory distress, Clear bilaterally - Abdomen Abdomen: Non tender, Non distended - Derm Derm: Normal color, Warm and dry - Extremities Extremities: Other (contracture and wasting of extremities. patient wheelchair bound) Results - Vitals Vitals: Vital Signs - 24 hr 08/20/22 08/20/22 21:08 23:45 Temperature 36.1 C L 36.2 C L Heart Rate 85 81 Respiratory 18 18 Rate Blood Pressure 153/113 H 152/99 H O2 Saturation 98 99 Oxygen O2 Source Room air PD MEDICAL DECISION MAKING - ED course ED course: 37yM p/w diarrhea. provided imodium, advising to hold if he has fever and come back for reevaluation. return precautions given. plan to f/u with pcp. Departure - Departure Disposition: 01 Home, Self Care Clinical Impression: Diarrhea Condition: Stable Instructions: ED Diarrhea Viral Prescriptions: Loperamide [Imodium] 2 mg PO QID PRN #10 tab PRN Reason: Diarrhea Comments: You were seen in the emergency department for evaluation of diarrhea. I am sorry but we were unable to offer shower facilities at this time. You were given Imodium, an antidiarrheal medication. A prescription was also provided. Do not take this medication if you have a fever (temperature higher than 100.4). Please follow-up with your primary care provider. Return to the emergency department if you have any new or worsening symptoms or other concerns. Discharge Date/Time: 08/21/22 00:16
[2022-08-20 23:47] VITALS: BP 152/99
== END 2022-08-21 00:16 | disposition home or self-care (01) ==
LOC: ED 20:59
DX: R19.7 Diarrhea, unspecified (principal)
CPT/HCPCS: 99282; A9270

== ENCOUNTER 2022-09-03 19:02 | Outpatient (CLI) | payer MEDICAID | END 2022-09-03 19:03 | disposition critical access hospital (66) | LOC: EMS 19:02 | DX: R07.9 Chest pain, unspecified (principal) | CPT/HCPCS: A0425; A0429; A0999 ==

== ENCOUNTER 2022-09-03 19:06 | Emergency (ER) | payer MEDICAID ==
--- NOTE | 2022-09-03 19:41 | XRAY Report ---
PROCEDURE: Chest 1 View X-Ray INDICATIONS: Chest Pain TECHNIQUE: One view of the chest was acquired. COMPARISON: None FINDINGS: Surgical changes and devices: None. Lungs and pleura: No pleural effusions or pneumothorax. Lungs are clear. Mediastinum: Mediastinal contours appear normal. Heart size is normal. Bones and chest wall: No suspicious bony lesions. Overlying soft tissues appear unremarkable. IMPRESSION: No acute cardiopulmonary abnormality. Reviewed by: Paul Coulter on 09/03/2022 7:40 PM PDT Approved by: Paul Coulter on 09/03/2022 7:40 PM PDT Station ID: [id number]
[2022-09-03 19:52] LABS: BASOPHILS # (AUTO) 0.1 10^3/uL (0.0-0.1); BASOPHILS % (AUTO) 0.6 %; EOSINOPHILS # (AUTO) 0.2 10^3/uL (0.0-0.7); EOSINOPHILS % (AUTO) 1.8 %; HCT - HEMATOCRIT 45.6 % (42.0-52.0); HGB - HEMOGLOBIN 14.2 g/dL (14.0-18.0); LYMPHOCYTES # (AUTO) 2.1 10^3/uL (1.5-3.5); LYMPHOCYTES % (AUTO) 20.7 %; MEAN CORPUSCULAR HEMOGLOBIN 26.5 pg (27.0-31.0); MEAN CORPUSCULAR HGB CONC 31.1 g/dL (32.0-36.0); MEAN CORPUSCULAR VOLUME 85.2 fL (80.0-94.0); MEAN PLATELET VOLUME 10.2 fL (7.4-11.4); MONOCYTES # (AUTO) 0.6 10^3/uL (0.0-1.0); MONOCYTES % (AUTO) 5.6 %; NEUTROPHILS # (AUTO) 7.2 10^3/uL (1.5-6.6); NEUTROPHILS % (AUTO) 70.8 %; PLT - PLATELET COUNT 246 10^3/uL (130-450); RED BLOOD COUNT 5.35 10^6/uL (4.70-6.10); RED CELL DISTRIBUTION WIDTH 13.6 % (12.0-15.0); WHITE BLOOD COUNT 10.2 x10^3/uL (4.8-10.8)
[2022-09-03 20:16] LABS: ALBUMIN 3.8 g/dL (3.2-5.5); BILIRUBIN,TOTAL 0.4 mg/dL (0.2-1.0); CALCIUM 8.9 mg/dL (8.5-10.3); CREATININE 0.5 mg/dL (0.6-1.2); POTASSIUM 3.6 mmol/L (3.5-5.0); TOTAL PROTEIN 7.6 g/dL (6.7-8.2)
--- NOTE | 2022-09-03 20:34 | ED Physician Documentation ---
PD HPI CHEST PAIN - Stated complaint Stated Complaint: CHEST PX - Chief complaint Chief Complaint: Cardiac - History obtained from History obtained from: Patient - History of Present Illness Timing - onset: Today Timing - onset during: Rest Timing - duration: Minutes (30) Timing - details: Abrupt onset, Still present Pain level max: 6 Pain level now: 4 Quality: Aching Location: Left chest, Left shoulder/arm Radiation: Left upper extremity Improved by: ASA Associated symptoms: General Weakness Similar symptoms before: Other (patient has had similar symptoms in the past, found to be low risk for ACS and discharged home after improvement in symptoms) Recently seen: Emergency Dept - Treatment prior to arrival Treatment prior to arrival: asa 324 Review of Systems Ten Systems: 10 systems reviewed and negative Constitutional: denies: Fever, Chills Cardiac: reports: Chest pain / pressure Respiratory: denies: Dyspnea PD PAST MEDICAL HISTORY - Past Medical History Past Medical History: Yes Cardiovascular: Arrhythmia Respiratory: Asthma Neuro: Migraines Endocrine/Autoimmune: None GI: GERD : None HEENT: Chronic vision loss Psych: Anxiety Musculoskeletal: Rheumatoid arthritis, Other Derm: None - Past Surgical History Past Surgical History: Yes Ortho: Arthroscopic surgery - Present Medications Home Medications: Ambulatory Orders Medication Instructions Recorded Confirmed Albuterol Sulf [Ventolin Hfa 1 - 2 puffs INH Q4HR PRN #1 inhaler 09/24/19 09/03/22 Inhaler] - Allergies Allergies/Adverse Reactions: Allergies Allergy/AdvReac Type Severity Reaction Status Date / Time dexamethasone Allergy Anxiety Verified 06/03/22 22:57 ketorolac tromethamine * Allergy Unknown Verified 06/03/22 22:57 [From Toradol] tramadol Allergy Unknown Verified 06/03/22 22:57 acetaminophen [From Vicodin] AdvReac severe Verified 06/03/22 22:57 headache hydrocodone bitartrate * AdvReac severe Verified 06/03/22 22:57 [From Vicodin] headache NSAIDS (Non-Steroidal AdvReac Nausea Verified 06/03/22 22:57 Anti-Inflamma oxycodone AdvReac Unknown Verified 06/03/22 22:57 - Social History Does the pt smoke?: No Smoking Status: Never smoker Does the pt drink ETOH?: Yes Does the pt have substance abuse?: No - Immunizations Immunizations are current?: Yes - POLST Patient has POLST: No PD ED PE NORMAL - Vitals Vital signs reviewed: Yes - General General: Alert and oriented X 3, No acute distress, Well developed/nourished - HEENT HEENT: Atraumatic, PERRL, EOMI - Neck Neck: Supple, no meningeal sign - Cardiac Cardiac: RRR - Respiratory Respiratory: No respiratory distress, Clear bilaterally - Abdomen Abdomen: Non tender, Non distended - Derm Derm: Normal color, Warm and dry - Extremities Extremities: No deformity - Neuro Neuro: Alert and oriented X 3 - Psych Psych: Normal mood, Normal affect Results - Vitals Vitals: Vital Signs - 24 hr 09/03/22 09/03/22 09/03/22 19:12 20:38 21:08 Temperature 37.4 C Heart Rate 92 76 76 Respiratory 22 16 17 Rate Blood Pressure 175/115 H 149/107 H 143/98 H O2 Saturation 99 96 97 09/03/22 21:09 Temperature 36.4 C L Heart Rate Respiratory Rate Blood Pressure O2 Saturation Oxygen O2 Source Room air - EKG (time done) 1911 Rate: Rate (enter#) (83) Rhythm: NSR Intervals: Normal NM QRS: Normal Ischemia: Normal ST segments - Labs Labs: Laboratory Tests 09/03/22 09/03/22 09/03/22 19:46 19:46 19:46 WBC 10.2 RBC 5.35 Hgb 14.2 Hct 45.6 MCV 85.2 MCH 26.5 L MCHC 31.1 L RDW 13.6 Plt Count 246 MPV 10.2 Neut # (Auto) 7.2 H Lymph # (Auto) 2.1 [place] # (Auto) 0.6 Eos # (Auto) 0.2 Baso # (Auto) 0.1 Absolute Nucleated RBC 0.00 Nucleated RBC % 0.0 D-Dimer 203.5 Sodium 134 L Potassium 3.6 Chloride 101 Carbon Dioxide 23 Anion Gap 10.0 BUN 19 Creatinine 0.5 L Estimated GFR (MDRD) 185 Glucose 92 Calcium 8.9 Total Bilirubin 0.4 AST 17 ALT 20 Alkaline Phosphatase 55 Troponin I High Sens Total Protein 7.6 Albumin 3.8 Globulin 3.8 Albumin/Globulin Ratio 1.0 Lipase 30 09/03/22 19:46 WBC RBC Hgb Hct MCV MCH MCHC RDW Plt Count MPV Neut # (Auto) Lymph # (Auto) [place] # (Auto) Eos # (Auto) Baso # (Auto) Absolute Nucleated RBC Nucleated RBC % D-Dimer Sodium Potassium Chloride Carbon Dioxide Anion Gap BUN Creatinine Estimated GFR (MDRD) Glucose Calcium Total Bilirubin AST ALT Alkaline Phosphatase Troponin I High Sens 12.9 Total Protein Albumin Globulin Albumin/Globulin Ratio Lipase PD MEDICAL DECISION MAKING - ED course ED course: 37yM presented for L sided CP radiating to shoulder, 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 reproducible with arm movement. Patient is low risk per HEART criteria with negative dimer. unlikely PE or dissection in the setting of negative dimer and improving symptoms. return precautions given. f/u with pmd. Departure - Departure Disposition: 01 Home, Self Care Clinical Impression: Chest pain Condition: Good Instructions: ED Chest Pain Atypical Unkn Cause Comments: You were seen in the ED for chest pain. Your exam and labwork uncovered no emergent cause for your symptoms at this time. Please return to the ED if you have new or worsening symptoms or other concerns. Follow up with your primary care provider. Discharge Date/Time: 09/03/22 21:18
[2022-09-03 21:09] VITALS: BP 143/98
== END 2022-09-03 21:18 | disposition home or self-care (01) ==
LOC: ED 19:06
DX: R07.9 Chest pain, unspecified (principal)
CPT/HCPCS: 36415; 80053; 83690; 84484; 85025; 85379; 93005; 99282; 99284

== ENCOUNTER 2022-09-26 00:53 | Outpatient (CLI) | payer MEDICAID | END 2022-09-26 00:54 | disposition EMS.NT | LOC: EMS 00:53 | DX: R07.89 Other chest pain (principal); F41.9 Anxiety disorder, unspecified ==

== ENCOUNTER 2022-10-28 14:16 | Outpatient (CLI) | payer MEDICAID | END 2022-10-28 14:17 | disposition EMS.NT | LOC: EMS 14:16 | DX: R20.0 Anesthesia of skin (principal); R10.9 Unspecified abdominal pain; M54.9 Dorsalgia, unspecified; R07.9 Chest pain, unspecified; F41.9 Anxiety disorder, unspecified ==

== ENCOUNTER 2022-10-31 19:09 | Emergency (ER) | payer MEDICAID ==
[2022-10-31 19:44] VITALS: BP 160/98
[2022-10-31] MEDS ORDERED: lisinopriL 5 MG TABLET PO STA (20:00)
--- NOTE | 2022-10-31 20:12 | ED Physician Documentation ---
History of Present Illness - Stated complaint Stated Complaint: HIGH BP, HEADACHE - Chief complaint Chief Complaint: Neuro - History obtained from History obtained from: Patient - Additonal information Additional information: Pt comes to the ED with CC of HTN and a headache. He states he is on lisinopril 5 mg, and this seems to control his BP reasonably well, but he has only been on it for about 4 days. The pt denies any other sx at this time. He states he was hungry, so stopped at [employer] on his way here. No nausea or vomiting. BP has been in the 160's-180's over 110's. Review of Systems Constitutional: reports: Reviewed and negative Eyes: reports: Reviewed and negative Ears: reports: Reviewed and negative Nose: reports: Reviewed and negative Throat: reports: Reviewed and negative Cardiac: reports: Reviewed and negative Respiratory: reports: Reviewed and negative GI: reports: Reviewed and negative : reports: Reviewed and negative Skin: reports: Reviewed and negative Musculoskeletal: reports: Reviewed and negative Neurologic: reports: Headache Psychiatric: reports: Reviewed and negative Endocrine: reports: Reviewed and negative Immunocompromised: reports: Reviewed and negative PD PAST MEDICAL HISTORY - Past Medical History Cardiovascular: Arrhythmia Respiratory: Asthma Neuro: Migraines Endocrine/Autoimmune: None GI: GERD : None HEENT: Chronic vision loss Psych: Anxiety Musculoskeletal: Rheumatoid arthritis, Other Derm: None - Past Surgical History Past Surgical History: Yes Ortho: Arthroscopic surgery - Present Medications Home Medications: Ambulatory Orders Medication Instructions Recorded Confirmed Albuterol Sulf [Ventolin Hfa 1 - 2 puffs INH Q4HR PRN #1 inhaler 09/24/19 09/03/22 Inhaler] - Allergies Allergies/Adverse Reactions: Allergies Allergy/AdvReac Type Severity Reaction Status Date / Time dexamethasone Allergy Anxiety Verified 06/03/22 22:57 ketorolac tromethamine * Allergy Unknown Verified 06/03/22 22:57 [From Toradol] tramadol Allergy Unknown Verified 06/03/22 22:57 acetaminophen [From Vicodin] AdvReac severe Verified 06/03/22 22:57 headache hydrocodone bitartrate * AdvReac severe Verified 06/03/22 22:57 [From Vicodin] headache NSAIDS (Non-Steroidal AdvReac Nausea Verified 06/03/22 22:57 Anti-Inflamma oxycodone AdvReac Unknown Verified 06/03/22 22:57 - Social History Does the pt smoke?: No Smoking Status: Never smoker Does the pt drink ETOH?: Yes Does the pt have substance abuse?: No - Immunizations Immunizations are current?: Yes - POLST Patient has POLST: No PD ED PE NORMAL - Vitals Vital signs reviewed: Yes - General General: Alert and oriented X 3, No acute distress, Well developed/nourished - HEENT HEENT: Atraumatic, PERRL, EOMI, Moist mucous membranes - Neck Neck: Supple, no meningeal sign - Cardiac Cardiac: RRR, No murmur - Respiratory Respiratory: No respiratory distress, Clear bilaterally - Abdomen Abdomen: Soft, Non tender, Non distended - Derm Derm: Normal color, Warm and dry, No rash - Extremities Extremities: Other (Chronic deformities.) - Neuro Neuro: Alert and oriented X 3, Other (grossly intact) - Psych Psych: Normal mood, Normal affect Results - Vitals Vitals: Oxygen O2 Source Room air PD Medical Decision Making - ED course Complexity details: considered differential, d/w patient ED course: The pt's BP was elevated at 150's/110's, but pt was very well-appearing, and I did not feel he was in hypertensive emergency. The pt was given an extra dose of lisinopril in the ED. We have discussed that he needs to follow closely with his PCP to gain control of his BP. We have discussed sx of hypertensive emergency, which should prompt immediate return to the ED. Departure - Departure Disposition: 01 Home, Self Care Clinical Impression: Hypertension Qualifiers: Hypertension type: unspecified Qualified Code(s): I10 - Essential (primary) hypertension Headache Qualifiers: Headache type: tension-type Headache chronicity pattern: acute headache Intractability: not intractable Qualified Code(s): G44.209 - Tension-type headache, unspecified, not intractable Condition: Stable Instructions: ED Cephalgia Unspecified, ED HTN Established Comments: Your blood pressure is elevated, though not dangerously so at this point. You have been given extra lisinopril tonight. Given that you are on a very low dose, there is a lot of room to go up, as maximum dosing for lisinopril is generally 80 mg/day. The best plan is to try to relax at home and allow the blood pressure medication to work over series of hours. If you feel that you are dehydrated, then you should drink plenty of fluids as you are not vomiting and there is no reason that you cannot drink. Please follow-up with your pr imary doctor if after a week, the dose of lisinopril that you are on is still not controlling your blood pressure well enough. Discharge Date/Time: 10/31/22 20:17
== END 2022-10-31 20:17 | disposition home or self-care (01) ==
LOC: ED 19:09
DX: I10 Essential (primary) hypertension (principal); G44.209 Tension-type headache, unspecified, not intractable
CPT/HCPCS: 99282; 99283; A9270

== ENCOUNTER 2022-11-04 19:35 | Outpatient (CLI) | payer MEDICAID | END 2022-11-04 19:36 | disposition EMS.NT | LOC: EMS 19:35 | DX: Z01.30 Encounter for examination of blood pressure without abnormal findings (principal) ==

== ENCOUNTER 2022-11-04 23:19 | Outpatient (CLI) | payer MEDICAID | END 2022-11-04 23:20 | disposition EMS.NT | LOC: EMS 23:19 | DX: Z57.5 Occupational exposure to toxic agents in other industries (principal) ==

== ENCOUNTER 2022-11-10 18:29 | Emergency (ER) | payer MEDICAID ==
--- NOTE | 2022-11-10 19:57 | ED Physician Documentation ---
History of Present Illness - Stated complaint Stated Complaint: KIDNEY PX - Chief complaint Chief Complaint: Abd Pain - History obtained from History obtained from: Patient - Additonal information Additional information: 37-year-old man with history of chronic pain, well-known to our emergency department, presents with 3 days of dark urine and acute on chronic BL low back pain, described as "kidney pain", starting today. Patient states he ran out of Dilaudid and had his prescription refill today but did not have complete relief with oral Dilaudid. denies fever. also c/o full body aches, chronic arthritis. denies fever. Review of Systems Musculoskeletal: reports: Back pain, Extremity pain, Joint pain PD PAST MEDICAL HISTORY - Past Medical History Cardiovascular: Arrhythmia Respiratory: Asthma Neuro: Migraines Endocrine/Autoimmune: None GI: GERD : None HEENT: Chronic vision loss Psych: Anxiety Musculoskeletal: Rheumatoid arthritis, Other Derm: None - Past Surgical History Past Surgical History: Yes Ortho: Arthroscopic surgery - Present Medications Home Medications: Ambulatory Orders Medication Instructions Recorded Confirmed Albuterol Sulf [Ventolin Hfa 1 - 2 puffs INH Q4HR PRN #1 inhaler 09/24/19 09/03/22 Inhaler] - Allergies Allergies/Adverse Reactions: Allergies Allergy/AdvReac Type Severity Reaction Status Date / Time dexamethasone Allergy Anxiety Verified 11/10/22 18:51 ketorolac tromethamine * Allergy Unknown Verified 11/10/22 18:51 [From Toradol] tramadol Allergy Unknown Verified 11/10/22 18:51 acetaminophen [From Vicodin] AdvReac severe Verified 11/10/22 18:51 headache hydrocodone bitartrate * AdvReac severe Verified 11/10/22 18:51 [From Vicodin] headache NSAIDS (Non-Steroidal AdvReac Nausea Verified 11/10/22 18:51 Anti-Inflamma oxycodone AdvReac Unknown Verified 11/10/22 18:51 - Social History Does the pt smoke?: No Smoking Status: Never smoker Does the pt drink ETOH?: Yes Does the pt have substance abuse?: No - Immunizations Immunizations are current?: Yes - POLST Patient has POLST: No PD ED PE NORMAL - Vitals Vital signs reviewed: Yes - General General: Alert and oriented X 3, No acute distress, Well developed/nourished - HEENT HEENT: Atraumatic, PERRL, EOMI - Back Back: No CVA TTP, No spinal TTP, Other (BL lowe back discomfort to palpation in muscle distribution) - Derm Derm: Normal color, Warm and dry - Extremities Extremities: Other (all four extremities with chronic deformity. LLE in brace) Results - Vitals Vitals: Vital Signs - 24 hr 11/10/22 11/10/22 18:47 21:52 Temperature 37.1 C 37.6 C Heart Rate 76 75 Respiratory 17 17 Rate Blood Pressure 152/113 H 152/106 H O2 Saturation 96 98 Oxygen O2 Source Room air - Labs Labs: Laboratory Tests 11/10/22 11/10/22 11/10/22 19:57 19:57 20:11 WBC 10.0 RBC 5.57 Hgb 14.6 Hct 45.9 MCV 82.4 MCH 26.2 L MCHC 31.8 L RDW 13.5 Plt Count 279 MPV 10.3 Neut # (Auto) 6.4 Lymph # (Auto) 2.6 [place] # (Auto) 0.7 Eos # (Auto) 0.2 Baso # (Auto) 0.1 Absolute Nucleated RBC 0.00 Nucleated RBC % 0.0 Sodium 136 Potassium 3.6 Chloride 103 Carbon Dioxide 23 Anion Gap 10.0 BUN 12 Creatinine 0.5 L Estimated GFR (MDRD) 185 Glucose 92 Calcium 9.1 Total Bilirubin 1.0 AST 16 ALT 21 Alkaline Phosphatase 59 Total Protein 8.3 H Albumin 4.4 Globulin 3.9 Albumin/Globulin Ratio 1.1 Lipase 288 H Urine Color YELLOW Urine Clarity CLEAR Urine pH 6.0 Ur Specific [place] 1.020 Urine Protein NEGATIVE Urine Glucose (UA) NEGATIVE Urine Ketones 15 H Urine Occult Blood MODERATE H Urine Nitrite NEGATIVE Urine Bilirubin NEGATIVE Urine Urobilinogen 0.2 (NORMAL) Ur Leukocyte Esterase NEGATIVE Urine RBC 11-25 H Urine WBC 0-3 Ur Squamous Epith Cells RARE Squamous Urine Bacteria None Seen Urine Mucus Moderate Strands Ur Microscopic Review INDICATED Urine Culture Comments NOT INDICATED PD Medical Decision Making - ED course ED course: 37yM with hx of chronic pain presents to ED with low back pain he describes as "kidney pain". reviewed prior inpatient admission notes as well as prior ED notes and [facility] care guideline. cbc, abdominal panel and u/a from triage was ordered, revealing mildly elevated lipase as well as blood in the urine but no signs of kidney damage or infection. d/w patient who agreed to ct to evaluate for kidney stones. CT uncovered no evidence of renal stones. he is experiencing no abdominal pain, but his lipase is elevated to 288. Patient denies heavy alcohol use or history of gallstones. Also is not experiencing any right upper quadrant pain consistent with gallstones. Reviewed his meds and no inciting cause for pancreatitis could be identified. His back pain is also much lower than the level of the pancreas or kidneys, indicating MSK cause as more likely. Patient took his own home dilaudid in the ED. initially declined nausea medicine then asked for a half dose of IM promethazine. He is tolerating p.o. in the emergency department and drank 2 full cups of water. Discussed that he will need to continue to hydrate at home, can take his home dilaudid and promethazine as needed, and should follow-up with his primary care provider as well as with urology. Return precautions given. Departure - Departure Disposition: 01 Home, Self Care Clinical Impression: Hematuria, Back pain, Pancreatitis Instructions: ED Hematuria, ED Pancreatitis Follow-Up: Joan Lipscomb MD [Physician No Access] - Comments: You were seen in the emergency department for evaluation of back pain. The main issues that came up on your test is that you have blood in your urine and your pancreatic function tests showed some inflammation in the pancreas (lipase 288). Make sure you drink lots of water, take pain medicine as needed, and follow up with your primary care provider regarding these findings. Return to the emergency department for any new or worsening symptoms or other concerns
[2022-11-10 20:04] LABS: BASOPHILS # (AUTO) 0.1 10^3/uL (0.0-0.1); BASOPHILS % (AUTO) 0.6 %; EOSINOPHILS # (AUTO) 0.2 10^3/uL (0.0-0.7); EOSINOPHILS % (AUTO) 1.9 %; HCT - HEMATOCRIT 45.9 % (42.0-52.0); HGB - HEMOGLOBIN 14.6 g/dL (14.0-18.0); LYMPHOCYTES # (AUTO) 2.6 10^3/uL (1.5-3.5); LYMPHOCYTES % (AUTO) 26.3 %; MEAN CORPUSCULAR HEMOGLOBIN 26.2 pg (27.0-31.0); MEAN CORPUSCULAR HGB CONC 31.8 g/dL (32.0-36.0); MEAN CORPUSCULAR VOLUME 82.4 fL (80.0-94.0); MEAN PLATELET VOLUME 10.3 fL (7.4-11.4); MONOCYTES # (AUTO) 0.7 10^3/uL (0.0-1.0); MONOCYTES % (AUTO) 6.9 %; NEUTROPHILS # (AUTO) 6.4 10^3/uL (1.5-6.6); NEUTROPHILS % (AUTO) 63.9 %; PLT - PLATELET COUNT 279 10^3/uL (130-450); RED BLOOD COUNT 5.57 10^6/uL (4.70-6.10); RED CELL DISTRIBUTION WIDTH 13.5 % (12.0-15.0)
[2022-11-10 20:22] LABS: ALBUMIN 4.4 g/dL (3.2-5.5); ALBUMIN/GLOBULIN RATIO 1.1 (1.0-2.2); CALCIUM 9.1 mg/dL (8.5-10.3); CREATININE 0.5 mg/dL (0.6-1.2); POTASSIUM 3.6 mmol/L (3.5-5.0); TOTAL PROTEIN 8.3 g/dL (6.7-8.2)
[2022-11-10 20:24] LABS: BILIRUBIN,URINE NEGATIVE (NEGATIVE); CLARITY,URINE CLEAR (CLEAR); GLUCOSE, URINE (UA) NEGATIVE (NEGATIVE); KETONES,URINE (UA) 15 mg/dL (NEGATIVE); LEUKOCYTE ESTERASE, URINE NEGATIVE (NEGATIVE); NITRITE,URINE NEGATIVE (NEGATIVE); OCCULT BLOOD,URINE MODERATE (NEGATIVE); PROTEIN,URINE NEGATIVE (NEGATIVE); UROBILINOGEN,URINE 0.2 (NORMAL) E.U./dL (NORMAL)
[2022-11-10 20:33] LABS: WBC,URINE 0-3 /HPF (0-3)
[2022-11-10 20:34] LABS: BACTERIA,URINE None Seen /HPF (None Seen); MUCUS,URINE Moderate Strands; SQUAMOUS EPITHELIAL CELL,UR RARE Squamous (<= Few)
[2022-11-10] MEDS ORDERED: PROMETHAZINE 25 MG/1 ML VIAL IM STA (21:29)
[2022-11-10 21:52] VITALS: BP 152/106
--- NOTE | 2022-11-10 22:01 | CT Report ---
PROCEDURE: ABDOMEN/PELVIS WO INDICATIONS: hematuria TECHNIQUE: Noncontrast 5 mm thick sections acquired from the diaphragms to the symphysis. 5 mm coronal and sagi ttal reformats were then performed. For radiation dose reduction, the following was used: automated exposure control, adjustment of mA and/or kV according to patient size. COMPARISON: CT abdomen pelvis 04/09/2020, 03/17/2020. FINDINGS: Image quality: There is left-sided external streak artifact limiting evaluation. Lung bases:There is a lung bases are clear. Heart: Heart is normal in size. URINARY: Right Kidney and Ureter: No stones or hydronephrosis. No hydroureter. Left Kidney and Ureter: No stones or hydronephrosis. No hydroureter. Bladder:The urinary bladder is nondistended. Concentric bladder wall thickening is demonstrated with trabeculation of the bladder wall. No stones. ABDOMEN: Liver: Noncontrast evaluation of the liver demonstrates no discrete mass. Gallbladder: Within normal limits without calcified gallstones. Biliary ducts: No biliary ductal dilatation. Pancreas: Unremarkable. Spleen: Normal in size. Adrenal Glands: No adrenal nodules. Stomach and Bowel: Stomach, small bowel loops, and colon are normal in caliber and wall thickness. T he appendix is normal in appearance. Peritoneum: No abnormal intraperitoneal fluid. No free air. Ventral Wall: No hernia. Abdominal Nodes: No retroperitoneal or mesenteric adenopathy by size criteria. Vessels: Aorta and inferior vena cava are normal in size. PELVIS: Pelvic Organs: Unremarkable. Pelvic Nodes: No enlarged lymph nodes. Miscellaneous: No inguinal hernias identified. Bones: Visualized osseous structures demonstrate no suspicious focal lesions. IMPRESSION: 1. No nephrolithiasis or obstructive uropathy. 2. Concentric bladder wall thickening suggestive of a cystitis. Recommend correlation with urinalysis . 3. Lobulated contour of the nondistended urinary bladder is suggestive of bladder wall trabeculation. Findings may reflect sequelae of chronic bladder outlet obstruction but is incompletely evaluated on the current study due to nondistention. Reviewed by: You Rodriguez MD on 11/10/2022 10:00 PM [facility] Approved by: You Rodriguez MD on 11/10/2022 10:00 PM PST Station ID: [id number]
== END 2022-11-10 21:52 | disposition home or self-care (01) ==
LOC: ED 18:29
DX: R31.9 Hematuria, unspecified (principal); K85.90 Acute pancreatitis without necrosis or infection, unspecified; M54.50 Low back pain, unspecified
CPT/HCPCS: 36415; 80053; 81001; 81003; 83690; 85025; 87086; 96372; 99284

== ENCOUNTER 2022-11-16 20:20 | Outpatient (CLI) | payer MEDICAID | END 2022-11-16 20:21 | disposition EMS.NT | LOC: EMS 20:20 | DX: R51.9 Headache, unspecified (principal) ==

== ENCOUNTER 2022-11-16 20:46 | Emergency (ER) | payer MEDICAID ==
--- NOTE | 2022-11-16 21:22 | ED Physician Documentation ---
History of Present Illness - Stated complaint Stated Complaint: HB - Chief complaint Chief Complaint: Cardiac - Additonal information Additional information: Patient is 37-year-old male with history of quadriplegia, wheelchair-bound presenting to the emergency department with concern for elevated blood pressure. Was diagnosed with essential hypertension and started on lisinopril 5 mg twice daily approximately 3 weeks ago. This morning did have a mild headache but states that this is improved. Denies any chest pain, shortness of breath or abdominal pain. Was seen here recently for pancreatitis but reports that those symptoms have improved. Denies any urinary discomfort or blood in urine. Checked his blood pressure at the [facility] and found it to be elevated and came to the emergency department for evaluation. No limitations to history, no independent historians, previous ED visits reviewed. Review of Systems Constitutional: denies: Fever Eyes: denies: Loss of vision Ears: denies: Loss of hearing Nose: denies: Rhinorrhea / runny nose Throat: denies: Dental pain / toothache Cardiac: denies: Chest pain / pressure Respiratory: denies: Dyspnea GI: denies: Abdominal Pain, Nausea, Vomiting PD PAST MEDICAL HISTORY - Past Medical History Cardiovascular: Arrhythmia Respiratory: Asthma Neuro: Migraines Endocrine/Autoimmune: None GI: GERD : None HEENT: Chronic vision loss Psych: Anxiety Musculoskeletal: Rheumatoid arthritis, Other Derm: None - Past Surgical History Past Surgical History: Yes Ortho: Arthroscopic surgery - Present Medications Home Medications: Ambulatory Orders Medication Instructions Recorded Confirmed Albuterol Sulf [Ventolin Hfa 1 - 2 puffs INH Q4HR PRN #1 inhaler 09/24/19 09/03/22 Inhaler] Lisinopril [Zestril] 10 mg PO BID #30 tablet 11/16/22 - Allergies Allergies/Adverse Reactions: Allergies Allergy/AdvReac Type Severity Reaction Status Date / Time dexamethasone Allergy Anxiety Verified 11/16/22 20:56 ketorolac tromethamine * Allergy Unknown Verified 11/16/22 20:56 [From Toradol] tramadol Allergy Unknown Verified 11/16/22 20:56 acetaminophen [From Vicodin] AdvReac severe Verified 11/16/22 20:56 headache hydrocodone bitartrate * AdvReac severe Verified 11/16/22 20:56 [From Vicodin] headache NSAIDS (Non-Steroidal AdvReac Nausea Verified 11/16/22 20:56 Anti-Inflamma oxycodone AdvReac Unknown Verified 11/16/22 20:56 - Social History Does the pt smoke?: No Smoking Status: Never smoker Does the pt drink ETOH?: Yes Does the pt have substance abuse?: No - Immunizations Immunizations are current?: Yes - POLST Patient has POLST: No PD ED PE NORMAL - Vitals Vital signs reviewed: Yes (Patient is hypertensive) - General General: Alert and oriented X 3, No acute distress - HEENT HEENT: Atraumatic - Neck Neck: Supple, no meningeal sign - Cardiac Cardiac: RRR - Respiratory Respiratory: No respiratory distress - Abdomen Abdomen: Normal bowel sounds - Extremities Extremities: No: No deformity (Upper extremity deformity and contracture at baseline) - Neuro Neuro: Other (At baseline neurologic status) Results - Vitals Vitals: Vital Signs - 24 hr 11/16/22 11/16/22 20:56 21:09 Temperature 36.5 C Heart Rate 83 Respiratory 16 Rate Blood Pressure 160/100 H 148/123 H O2 Saturation 98 Oxygen O2 Source Room air PD Medical Decision Making - ED course Complexity details: d/w patient Reviewed Lab Results: None ED course: Patient 37-year-old male presenting to the emergency department with elevated blood pressure. Reported that he had a headache this morning which has improved. Denied any chest or abdominal pain that would be of eminent concern for hypertensive emergency. He is otherwise asymptomatic here in the emergency department. Was hypertensive here. Currently takes lisinopril 5 mg twice daily. He reports he has a follow-up appointment with his doctor tomorrow. I will temporarily increase this to 10 mg twice daily. I will encourage him to increase follow-up with his primary care doctor to discuss this change in medications. We also discussed return precautions including return precautions for any symptoms that would be of eminent concern for hypertensive emergency. Clinical impression, hypertension. Departure - Departure Disposition: 01 Home, Self Care Clinical Impression: Hypertension Prescriptions: Lisinopril [Zestril] 10 mg PO BID #30 tablet
[2022-11-16 21:37] VITALS: BP 150/100
== END 2022-11-16 21:36 | disposition home or self-care (01) ==
LOC: ED 20:46
DX: I10 Essential (primary) hypertension (principal); G82.50 Quadriplegia, unspecified; Z99.3 Dependence on wheelchair
CPT/HCPCS: 99282; 99284

== ENCOUNTER 2022-12-02 16:25 | Outpatient (CLI) | payer MEDICAID | END 2022-12-02 16:26 | disposition EMS.NT | LOC: EMS 16:25 | DX: R51.9 Headache, unspecified (principal); I10 Essential (primary) hypertension ==

== ENCOUNTER 2022-12-02 17:14 | Emergency (ER) | payer MEDICAID ==
--- NOTE | 2022-12-02 17:43 | ED Physician Documentation ---
History of Present Illness - Stated complaint Stated Complaint: HIGH BP,MIGRAINE - Chief complaint Chief Complaint: Cardiac - History obtained from History obtained from: Patient - Additonal information Additional information: 37-year-old gentleman presents to the evaluation of headache and high blood pressure. About 2 months ago he went cold turkey off of chronic narcotics. Since then he has had elevated blood pressures and has developed pounding headaches. When his blood pressure is high he feels his heartbeat in his eyes and bitemporal pressure. He was started on lisinopril but at a very low dose, 5 mg a day for this. Review of Systems Constitutional: denies: Fever, Chills, Fatigue Nose: denies: Rhinorrhea / runny nose Cardiac: denies: Chest pain / pressure, Palpitations Respiratory: denies: Dyspnea, Cough PD PAST MEDICAL HISTORY - Past Medical History Past Medical History: Yes Cardiovascular: Arrhythmia Respiratory: Asthma Neuro: Migraines Endocrine/Autoimmune: None GI: GERD : None HEENT: Chronic vision loss Psych: Anxiety Musculoskeletal: Rheumatoid arthritis, Other Derm: None - Past Surgical History Past Surgical History: Yes Ortho: Arthroscopic surgery - Present Medications Home Medications: Ambulatory Orders Medication Instructions Recorded Confirmed Albuterol Sulf [Ventolin Hfa 1 - 2 puffs INH Q4HR PRN #1 inhaler 09/24/19 09/03/22 Inhaler] Lisinopril [Zestril] 10 mg PO BID #30 tablet 11/16/22 - Allergies Allergies/Adverse Reactions: Allergies Allergy/AdvReac Type Severity Reaction Status Date / Time dexamethasone Allergy Anxiety Verified 12/02/22 17:27 ketorolac tromethamine * Allergy Unknown Verified 12/02/22 17:27 [From Toradol] tramadol Allergy Unknown Verified 12/02/22 17:27 acetaminophen [From Vicodin] AdvReac severe Verified 12/02/22 17:27 headache hydrocodone bitartrate * AdvReac severe Verified 12/02/22 17:27 [From Vicodin] headache NSAIDS (Non-Steroidal AdvReac Nausea Verified 12/02/22 17:27 Anti-Inflamma oxycodone AdvReac Unknown Verified 12/02/22 17:27 - Social History Does the pt smoke?: No Smoking Status: Never smoker Does the pt drink ETOH?: Yes Does the pt have substance abuse?: No - Immunizations Immunizations are current?: Yes - POLST Patient has POLST: No PD ED PE NORMAL - Vitals Vital signs reviewed: Yes - General General: Alert and oriented X 3, No acute distress, Other (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.) - HEENT HEENT: PERRL, EOMI - Neck Neck: Supple, no meningeal sign, No bony TTP - Cardiac Cardiac: RRR, No murmur - Respiratory Respiratory: No respiratory distress, Clear bilaterally - Abdomen Abdomen: Non tender - Neuro Neuro: Alert and oriented X 3, aws architect 2-12 intact, No motor deficit, No sensory deficit, Normal speech Eye Opening: Spontaneous Motor: Obeys Commands Verbal: Oriented GCS Score: 15 Results - Vitals Vitals: Vital Signs - 24 hr 12/02/22 12/02/22 17:22 17:27 Temperature 36.8 C 36.8 C Heart Rate 87 87 Respiratory 16 16 Rate Blood Pressure 143/103 H 143/103 H O2 Saturation 98 98 Oxygen O2 Source Room air - EKG (time done) 1813 Rate: Rate (enter#) (81) Rhythm: NSR [place]: Normal Intervals: Normal [place] QRS: Normal Ischemia: Normal ST segments - Labs Labs: Laboratory Tests 12/02/22 12/02/22 18:04 18:04 WBC 11.5 H RBC 5.35 Hgb 14.4 Hct 44.7 MCV 83.6 MCH 26.9 L MCHC 32.2 RDW 13.8 Plt Count 278 MPV 10.5 Neut # (Auto) 8.4 H Lymph # (Auto) 2.1 [place] # (Auto) 0.7 Eos # (Auto) 0.2 Baso # (Auto) 0.1 Absolute Nucleated RBC 0.00 Nucleated RBC % 0.0 Sodium 136 Potassium 4.1 Chloride 106 Carbon Dioxide 20 L Anion Gap 10.0 BUN 16 Creatinine 0.5 L Estimated GFR (MDRD) 185 Glucose 100 Calcium 9.2 Total Bilirubin 0.5 AST 14 ALT 19 Alkaline Phosphatase 62 Total Protein 7.8 Albumin 3.9 Globulin 3.9 Albumin/Globulin Ratio 1.0 - Rads (name of study) CT of the head without contrast is unremarkable Radiology: Final report received, EMP read indepedently PD Medical Decision Making - ED course ED course: CBC reviewed and unremarkable. CMP reviewed and unremarkable. 37-year-old gentleman with ongoing headaches, pattern which does not fit serious acute intracranial issue such as subarachnoid hemorrhage or meningitis. CT of the head was unremarkable. Labs were done and unremarkable. EKG normal. He is on a very low-dose of lisinopril and we will increase. Departure - Departure Disposition: 01 Home, Self Care Clinical Impression: Headache Qualifiers: Headache type: tension-type Headache chronicity pattern: acute headache Intractability: not intractable Qualified Code(s): G44.209 - Tension-type headache, unspecified, not intractable Hypertension Qualifiers: Hypertension type: primary hypertension Qualified Code(s): I10 - Essential (primary) hypertension Condition: Good Record reviewed to determine appropriate education?: Yes Instructions: ED Cephalgia Unspecified, ED HTN Established Comments: Your labs, EKG, and CT of the head were unremarkable. Its reasonable to start increasing your dose of lisinopril. You can go up to 10 mg a day, if not better after a week with blood pressures still above a high number of 140-160, you can go up to 20 mg a day. Eat a low-salt diet. Return for new or worsening symptoms. Follow-up with your primary care physician, next available appointment.
--- NOTE | 2022-12-02 18:10 | CT Report ---
PROCEDURE: HEAD WO INDICATIONS: headache TECHNIQUE: Noncontrast 4.5 mm thick angled axial sections acquired from the foramen magnum to the vertex. For r adiation dose reduction, the following was used: automated exposure control, adjustment of mA and/or kV according to patient size. COMPARISON: 04/20/2018. FINDINGS: Image quality: Excellent. CSF spaces: Basal cisterns are patent. No extra-axial fluid collections. Ventricles are normal in size and shape. Brain: No midline shift. No intracranial masses or hemorrhage. [place]-white matter interface is norm al. Skull and face: Calvarium and visualized facial bones are intact, without suspicious lesions. Sinuses: Visualized sinuses and mastoids are clear. IMPRESSION: No CT evidence of acute intracranial abnormalities. Reviewed by: Gilberto Laurent MD on 12/02/2022 6:09 PM PST Approved by: Gilberto Laurent MD on 12/02/2022 6:09 PM [facility] Station ID: [id number]
[2022-12-02 18:17] LABS: BASOPHILS # (AUTO) 0.1 10^3/uL (0.0-0.1); BASOPHILS % (AUTO) 0.6 %; EOSINOPHILS # (AUTO) 0.2 10^3/uL (0.0-0.7); EOSINOPHILS % (AUTO) 1.3 %; HCT - HEMATOCRIT 44.7 % (42.0-52.0); HGB - HEMOGLOBIN 14.4 g/dL (14.0-18.0); LYMPHOCYTES # (AUTO) 2.1 10^3/uL (1.5-3.5); LYMPHOCYTES % (AUTO) 18.2 %; MEAN CORPUSCULAR HEMOGLOBIN 26.9 pg (27.0-31.0); MEAN CORPUSCULAR HGB CONC 32.2 g/dL (32.0-36.0); MEAN CORPUSCULAR VOLUME 83.6 fL (80.0-94.0); MEAN PLATELET VOLUME 10.5 fL (7.4-11.4); MONOCYTES # (AUTO) 0.7 10^3/uL (0.0-1.0); MONOCYTES % (AUTO) 6.3 %; NEUTROPHILS # (AUTO) 8.4 10^3/uL (1.5-6.6); NEUTROPHILS % (AUTO) 73.2 %; PLT - PLATELET COUNT 278 10^3/uL (130-450); RED BLOOD COUNT 5.35 10^6/uL (4.70-6.10); RED CELL DISTRIBUTION WIDTH 13.8 % (12.0-15.0); WHITE BLOOD COUNT 11.5 x10^3/uL (4.8-10.8)
[2022-12-02 18:29] LABS: ALBUMIN 3.9 g/dL (3.2-5.5); BILIRUBIN,TOTAL 0.5 mg/dL (0.2-1.0); CALCIUM 9.2 mg/dL (8.5-10.3); CREATININE 0.5 mg/dL (0.6-1.2); POTASSIUM 4.1 mmol/L (3.5-5.0); TOTAL PROTEIN 7.8 g/dL (6.7-8.2)
[2022-12-02 18:43] VITALS: BP 150/110
== END 2022-12-02 18:42 | disposition home or self-care (01) ==
LOC: ED 17:14
DX: G44.209 Tension-type headache, unspecified, not intractable (principal); I10 Essential (primary) hypertension
CPT/HCPCS: 36415; 80053; 85025; 93005; 99284

== ENCOUNTER 2022-12-21 13:45 | Outpatient (CLI) | payer MEDICAID | END 2022-12-21 13:46 | disposition critical access hospital (66) | LOC: EMS 13:45 | DX: M54.50 Low back pain, unspecified (principal); M25.569 Pain in unspecified knee; V59.40XA Driver of pick-up truck or van injured in collision with unspecified motor vehicles in traffic accident, initial encounter; Y92.413 State road as the place of occurrence of the external cause | CPT/HCPCS: A0425; A0429; A0999 ==

== ENCOUNTER 2022-12-21 13:55 | Emergency (ER) | payer MEDICAID ==
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
[2022-12-21] MEDS ORDERED: HYDROmorphone 1 MG/ML CARPUJECT IM STA ×2 (14:27→16:06)
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
[2022-12-21 17:04] VITALS: BP 139/102
== END 2022-12-21 17:14 | disposition home or self-care (01) ==
LOC: EDUNIT# → EDBD → ED 13:55
DX: S39.012A Strain of muscle, fascia and tendon of lower back, initial encounter (principal); S80.01XA Contusion of right knee, initial encounter; S60.211A Contusion of right wrist, initial encounter; V89.2XXA Person injured in unspecified motor-vehicle accident, traffic, initial encounter; Y92.410 Unspecified street and highway as the place of occurrence of the external cause; Z79.899 Other long term (current) drug therapy
CPT/HCPCS: 72070; 72100; 73110; 73564; 96372; 99284; J1170

== ENCOUNTER 2022-12-29 02:33 | Outpatient (CLI) | payer MEDICAID | END 2022-12-29 02:34 | disposition EMS.NT | LOC: EMS 02:33 | DX: R51.9 Headache, unspecified (principal); I10 Essential (primary) hypertension ==

== ENCOUNTER 2023-01-19 02:18 | Outpatient (CLI) | payer MEDICAID | END 2023-01-19 02:19 | disposition EMS.NT | LOC: EMS 02:18 | DX: R00.0 Tachycardia, unspecified (principal); F41.9 Anxiety disorder, unspecified ==

== ENCOUNTER 2023-02-03 11:34 | Emergency (ER) | payer MEDICAID ==
[2023-02-03 11:48] VITALS: BP 162/110
[2023-02-03] MEDS ORDERED: MAG HYDROX/AL HYDROX/SIMETH 30 ML UDC PO STA (11:53)
[2023-02-03] MEDS ORDERED: FAMOTIDINE 20 MG TABLET PO STA (11:53)
--- NOTE | 2023-02-03 11:54 | ED Physician Documentation ---
History of Present Illness - Stated complaint Stated Complaint: PX L HAND R SHOULDER - Chief complaint Chief Complaint: Cardiac - History obtained from History obtained from: Patient - Additonal information Additional information: 37-year-old male who is well-known to our ER presented with A brief episode of substernal chest pain 2 days ago. It lasted a minute or so, was nonexertional and nonradiating. He states then yesterday he felt "out of it" and somewhat sleepy throughout the day. He also noticed an increase in his acid reflux symptoms. He states that his PCP had taken him off his PPI recently or possibly his insurance stopped covering it but in any case he has not been taking a PPI and states that H2 blockers do not help him. He has not had any recurrence of chest pain, has not had any abdominal pain vomiting, diarrhea or urinary symptoms. He denies any shortness of breath. No recent cough or URI symptoms. Patient notably has been seen for similar several times in the past. Review of Systems Constitutional: reports: Reviewed and negative Eyes: reports: Reviewed and negative Ears: reports: Reviewed and negative Nose: reports: Reviewed and negative Throat: reports: Reviewed and negative Cardiac: reports: Chest pain / pressure Respiratory: reports: Reviewed and negative GI: reports: Other (Acid reflux, otherwise negative) : reports: Reviewed and negative Skin: reports: Reviewed and negative Musculoskeletal: reports: Reviewed and negative Neurologic: reports: Reviewed and negative PD PAST MEDICAL HISTORY - Past Medical History Cardiovascular: Arrhythmia Respiratory: Asthma Neuro: Migraines Endocrine/Autoimmune: None GI: GERD : None HEENT: Chronic vision loss Psych: Anxiety Musculoskeletal: Rheumatoid arthritis, Other Derm: None - Past Surgical History Past Surgical History: Yes Ortho: Arthroscopic surgery - Present Medications Home Medications: Ambulatory Orders Medication Instructions Recorded Confirmed Albuterol Sulf [Ventolin Hfa 1 - 2 puffs INH Q4HR PRN #1 inhaler 09/24/19 09/03/22 Inhaler] Lisinopril [Zestril] 10 mg PO BID #30 tablet 11/16/22 HYDROmorphone [Dilaudid] 2 mg PO Q6H PRN #10 tablet 12/21/22 Omeprazole 40 mg PO DAILY #30 cap 02/03/23 - Allergies Allergies/Adverse Reactions: Allergies Allergy/AdvReac Type Severity Reaction Status Date / Time dexamethasone Allergy Anxiety Verified 02/03/23 11:40 ketorolac tromethamine * Allergy Unknown Verified 02/03/23 11:40 [From Toradol] tramadol Allergy Unknown Verified 02/03/23 11:40 acetaminophen [From Vicodin] AdvReac severe Verified 02/03/23 11:40 headache hydrocodone bitartrate * AdvReac severe Verified 02/03/23 11:40 [From Vicodin] headache NSAIDS (Non-Steroidal AdvReac Nausea Verified 02/03/23 11:40 Anti-Inflamma oxycodone AdvReac Unknown Verified 02/03/23 11:40 - Social History Does the pt smoke?: No Smoking Status: Never smoker Does the pt drink ETOH?: Yes Does the pt have substance abuse?: No - Immunizations Immunizations are current?: Yes - POLST Patient has POLST: No PD ED PE NORMAL - Vitals Vital signs reviewed: Yes - General General: Alert and oriented X 3, No acute distress, Well developed/nourished - HEENT HEENT: Atraumatic, Pharynx benign - Neck Neck: Supple, no meningeal sign, No JVD - Cardiac Cardiac: RRR, No murmur, No gallop, No rub, Strong equal pulses - Respiratory Respiratory: No respiratory distress, Clear bilaterally - Abdomen Abdomen: Normal bowel sounds, Soft, Non tender, Non distended - Derm Derm: Normal color, Warm and dry - Neuro Neuro: Alert and oriented X 3 Eye Opening: Spontaneous Motor: Obeys Commands Verbal: Oriented GCS Score: 15 Results - Vitals Vitals: Vital Signs - 24 hr 02/03/23 11:40 Temperature 37 C Heart Rate 106 H Respiratory 18 Rate Blood Pressure 162/110 H O2 Saturation 97 Oxygen O2 Source Room air - EKG (time done) No standard instances EKG releavant findings:: EKG personally interpreted by author of this note. Relevant findings are: Rate: Rate (enter#) (98) Rhythm: NSR [place]: Normal Intervals: Normal NC QRS: Normal Ischemia: Non specific changes Computer interpretation: Agree with computer - Labs Labs: Laboratory Tests 02/03/23 02/03/23 02/03/23 12:41 12:41 12:41 WBC 9.5 RBC 5.25 Hgb 14.2 Hct 46.2 MCV 88.0 MCH 27.0 MCHC 30.7 L RDW 13.8 Plt Count 231 MPV 10.5 Neut # (Auto) 6.1 Lymph # (Auto) 2.5 [place] # (Auto) 0.6 Eos # (Auto) 0.2 Baso # (Auto) 0.1 Absolute Nucleated RBC 0.00 Nucleated RBC % 0.0 Sodium 134 L Potassium 3.8 Chloride 105 Carbon Dioxide 24 Anion Gap 5.0 L BUN 11 Creatinine 0.4 L Estimated GFR (MDRD) 239 Glucose 99 Calcium 8.5 Total Bilirubin 0.5 AST 16 ALT 17 Alkaline Phosphatase 51 Troponin I High Sens 4.1 Total Protein 7.1 Albumin 3.5 Globulin 3.6 Albumin/Globulin Ratio 1.0 Lipase 126 H - Rads (name of study) No standard instances Relevant Findings:: Final report received PD Medical Decision Making - ED course Complexity details: reviewed old records, reviewed results, re-evaluated patient, considered differential, d/w patient ED course: 37-year-old male presents with symptoms of acid reflux which she has had in the past. He has been off his PPI recently. He also had some brief left-sided chest pain a couple of days ago. Have low suspicion for ACS but we did obtain an EKG which shows no acute ischemic changes and a troponin which is within normal limits. His labs are largely stable, lipase is mildly elevated in the low 100s, improved from prior. He does not have any other signs of pancreatitis, no vomiting, no severe abdominal pain so I have lower suspicion for pancreatitis and a CT was done on his lipase was more elevated in the past and this was negative. I did recommend that he go back to a clear liquid diet for a day or 2 and then increase to a bland diet, discussed GERD precautions, GERD diet and staying upright after eating, avoid eating within several hours of going to bed, avoiding NSAIDs, alcohol, tobacco, and spicy or acidic foods. The patient felt improved after Famotidine and Maalox here and we will discharge him home with omeprazole as that tends to work better for him. He was discharged home in stable condition, recommended follow-up with his PCP within the next week or so.Return precautions were reviewed in detail with the patient. Departure - Departure Disposition: 01 Home, Self Care Clinical Impression: Reflux gastritis Condition: Good Instructions: ED Gastritis Prescriptions: Omeprazole 40 mg PO DAILY #30 cap Comments: You presented with signs of acid reflux. We did additional work-up to ensure this was not related to your heart and the labs, chest x-ray and EKG were stable. There was mild inflammation in your pancreatic labs though this is improved from before. I do not think this is causing your discomfort but treatment for pancreatitis would be a clear liquid diet and resting your GI tract for a few days until symptoms improve. I have resumed your omeprazole. It is good to try to come off of it if you can with changes in your diet and staying in a appropriate weight. Try to stick to small meals, avoiding acidic foods, alcohol, and spicy foods. Avoid ibuprofen as well. Please follow-up with your primary doctor for ongoing management of this issue. Discharge Date/Time: 02/03/23 13:23
[2023-02-03 12:46] LABS: BASOPHILS # (AUTO) 0.1 10^3/uL (0.0-0.1); BASOPHILS % (AUTO) 0.7 %; EOSINOPHILS # (AUTO) 0.2 10^3/uL (0.0-0.7); EOSINOPHILS % (AUTO) 2.5 %; HCT - HEMATOCRIT 46.2 % (42.0-52.0); HGB - HEMOGLOBIN 14.2 g/dL (14.0-18.0); LYMPHOCYTES # (AUTO) 2.5 10^3/uL (1.5-3.5); LYMPHOCYTES % (AUTO) 25.9 %; MEAN CORPUSCULAR HGB CONC 30.7 g/dL (32.0-36.0); MEAN PLATELET VOLUME 10.5 fL (7.4-11.4); MONOCYTES # (AUTO) 0.6 10^3/uL (0.0-1.0); NEUTROPHILS # (AUTO) 6.1 10^3/uL (1.5-6.6); NEUTROPHILS % (AUTO) 64.3 %; PLT - PLATELET COUNT 231 10^3/uL (130-450); RED BLOOD COUNT 5.25 10^6/uL (4.70-6.10); RED CELL DISTRIBUTION WIDTH 13.8 % (12.0-15.0); WHITE BLOOD COUNT 9.5 x10^3/uL (4.8-10.8)
--- NOTE | 2023-02-03 12:54 | XRAY Report ---
PROCEDURE: Chest 1 View X-Ray INDICATIONS: Chest Pain TECHNIQUE: One view of the chest was acquired. COMPARISON: Chest x-ray 09/03/2022 FINDINGS: Surgical changes and devices: None. Lungs and pleura: No pleural effusions or pneumothorax. Lungs are clear. Mediastinum: Mediastinal contours appear normal. Heart size is enlarged. Bones and chest wall: No suspicious bony lesions. Overlying soft tissues appear unremarkable. IMPRESSION: No acute pulmonary process. Reviewed by: Latisha Neville MD on 02/03/2023 12:53 PM PDT Approved by: Latisha Neville MD on 02/03/2023 12:53 PM PDT Station ID: [id number]
[2023-02-03 13:08] LABS: ALBUMIN 3.5 g/dL (3.2-5.5); BILIRUBIN,TOTAL 0.5 mg/dL (0.2-1.0); CALCIUM 8.5 mg/dL (8.5-10.3); CREATININE 0.4 mg/dL (0.6-1.2); POTASSIUM 3.8 mmol/L (3.5-5.0); TOTAL PROTEIN 7.1 g/dL (6.7-8.2)
== END 2023-02-03 13:23 | disposition home or self-care (01) ==
LOC: ED 11:34
DX: K21.9 Gastro-esophageal reflux disease without esophagitis (principal)
CPT/HCPCS: 36415; 71045; 80053; 83690; 84484; 85025; 93005; 99284; A9270

== ENCOUNTER 2023-03-12 21:54 | Emergency (ER) | payer MEDICAID ==
[2023-03-12 23:05] LABS: BASOPHILS # (AUTO) 0.1 10^3/uL (0.0-0.1); BASOPHILS % (AUTO) 0.6 %; EOSINOPHILS # (AUTO) 0.3 10^3/uL (0.0-0.7); EOSINOPHILS % (AUTO) 2.1 %; HGB - HEMOGLOBIN 14.1 g/dL (14.0-18.0); LYMPHOCYTES # (AUTO) 2.4 10^3/uL (1.5-3.5); LYMPHOCYTES % (AUTO) 17.6 %; MEAN CORPUSCULAR HEMOGLOBIN 26.9 pg (27.0-31.0); MEAN CORPUSCULAR HGB CONC 31.3 g/dL (32.0-36.0); MEAN CORPUSCULAR VOLUME 85.7 fL (80.0-94.0); MEAN PLATELET VOLUME 10.6 fL (7.4-11.4); MONOCYTES # (AUTO) 0.8 10^3/uL (0.0-1.0); NEUTROPHILS # (AUTO) 9.9 10^3/uL (1.5-6.6); NEUTROPHILS % (AUTO) 73.4 %; PLT - PLATELET COUNT 241 10^3/uL (130-450); RED BLOOD COUNT 5.25 10^6/uL (4.70-6.10); RED CELL DISTRIBUTION WIDTH 13.3 % (12.0-15.0); WHITE BLOOD COUNT 13.5 x10^3/uL (4.8-10.8)
[2023-03-12 23:11] VITALS: BP 148/101
[2023-03-12 23:13] LABS: B. PARAPERTUSSIS- RESP PCR PAN NOT DETECTED; B. PERTUSSIS- RESP PCR PANEL NOT DETECTED; C. PNEUMONIAE- RESP PCR PANEL NOT DETECTED; CORONAVIRUS 229E-RESP PCR NOT DETECTED; CORONAVIRUS HKU1-RESP PCR NOT DETECTED; CORONAVIRUS NL63-RESP PCR NOT DETECTED; CORONAVIRUS OC43-RESP PCR NOT DETECTED; HUMAN METAPNEUMOVIRUS NOT DETECTED; INFLUENZA A- RESP PCR PANEL NOT DETECTED; INFLUENZA B - RESP PCR PANEL NOT DETECTED; M. PNEUMONIAE- RESP PCR PANEL NOT DETECTED; PARAINFLUENZA VIRUS 1 NOT DETECTED; PARAINFLUENZA VIRUS 2 NOT DETECTED; PARAINFLUENZA VIRUS 3 NOT DETECTED; PARAINFLUENZA VIRUS 4 NOT DETECTED; RHINOVIRUS/ENTEROVIRUS DETECTED; RSV- RESP PCR PANEL NOT DETECTED; SARS-CoV-2 -RESP PCR PANEL NOT DETECTED
[2023-03-12 23:19] LABS: ALBUMIN 3.9 g/dL (3.2-5.5); ALBUMIN/GLOBULIN RATIO 1.1 (1.0-2.2); BILIRUBIN,TOTAL 0.6 mg/dL (0.2-1.0); CALCIUM 8.6 mg/dL (8.5-10.3); CREATININE 0.6 mg/dL (0.6-1.2); POTASSIUM 3.6 mmol/L (3.5-5.0); TOTAL PROTEIN 7.6 g/dL (6.7-8.2)
--- NOTE | 2023-03-12 23:51 | ED Physician Documentation ---
History of Present Illness - Stated complaint Stated Complaint: SOA/FEVER/COUGH - Chief complaint Chief Complaint: Resp - Additonal information Additional information: Patient 37-year-old male presenting to the emergency department chief complaint cough, congestion x3-4 days. Referred by primary care with report of cough with red-tinged sputum. He reports history of bronchitis, states he has had been having subjective fevers. Reports left-sided chest pain made worse with coughing. Denies abdominal pain, nausea or vomiting. Review of Systems Constitutional: reports: Fever Eyes: denies: Loss of vision Ears: denies: Loss of hearing Nose: reports: Congestion Cardiac: reports: Chest pain / pressure Respiratory: reports: Cough GI: denies: Abdominal Pain, Nausea, Vomiting PD PAST MEDICAL HISTORY - Past Medical History Past Medical History: Yes Cardiovascular: Arrhythmia Respiratory: Asthma Neuro: Migraines Endocrine/Autoimmune: None GI: GERD : None HEENT: Chronic vision loss Psych: Anxiety Musculoskeletal: Rheumatoid arthritis, Other Derm: None - Past Surgical History Past Surgical History: Yes Ortho: Arthroscopic surgery - Present Medications Home Medications: Ambulatory Orders Medication Instructions Recorded Confirmed Albuterol Sulf [Ventolin Hfa 1 - 2 puffs INH Q4HR PRN #1 inhaler 09/24/19 09/03/22 Inhaler] Lisinopril [Zestril] 10 mg PO BID #30 tablet 11/16/22 HYDROmorphone [Dilaudid] 2 mg PO Q6H PRN #10 tablet 12/21/22 Omeprazole 40 mg PO DAILY #30 cap 02/03/23 Albuterol Sulf [Ventolin Hfa 1 - 2 puffs INH Q4HR PRN #1 each 03/13/23 Inhaler] Benzonatate [Tessalon] 200 mg PO TID PRN #30 cap 03/13/23 - Allergies Allergies/Adverse Reactions: Allergies Allergy/AdvReac Type Severity Reaction Status Date / Time dexamethasone Allergy Anxiety Verified 02/03/23 11:40 ketorolac tromethamine * Allergy Unknown Verified 02/03/23 11:40 [From Toradol] tramadol Allergy Unknown Verified 02/03/23 11:40 acetaminophen [From Vicodin] AdvReac severe Verified 02/03/23 11:40 headache hydrocodone bitartrate * AdvReac severe Verified 02/03/23 11:40 [From Vicodin] headache NSAIDS (Non-Steroidal AdvReac Nausea Verified 02/03/23 11:40 Anti-Inflamma oxycodone AdvReac Unknown Verified 02/03/23 11:40 - Social History Does the pt smoke?: No Smoking Status: Never smoker Does the pt drink ETOH?: Yes Does the pt have substance abuse?: No - Immunizations Immunizations are current?: Yes - POLST Patient has POLST: No PD ED PE NORMAL - General General: Alert and oriented X 3, No acute distress, Well developed/nourished - HEENT HEENT: Atraumatic - Neck Neck: Supple, no meningeal sign - Cardiac Cardiac: RRR - Respiratory Respiratory: No respiratory distress - Abdomen Abdomen: Normal bowel sounds, Soft, Non tender - Male Male : Deferred - Rectal Rectal: Deferred - Extremities Extremities: Other (Chronic contractures in the upper extremities, knee brace on left leg.). No: No deformity - Neuro Neuro: Alert and oriented X 3, [place] 2-12 intact, No motor deficit, No sensory deficit Results - Vitals Vitals: Vital Signs - 24 hr 03/12/23 03/12/23 03/12/23 22:01 22:12 22:21 Temperature 37.1 C Heart Rate 85 Respiratory 16 17 19 Rate Blood Pressure 148/100 H O2 Saturation 99 03/12/23 03/12/23 03/13/23 22:46 23:10 00:48 Temperature Heart Rate 89 Respiratory 17 19 16 Rate Blood Pressure 148/101 H O2 Saturation 100 99 Oxygen O2 Source Room air - EKG (time done) 2244 EKG releavant findings:: EKG personally interpreted by author of this note. Relevant findings are: Sinus rhythm with rate 81 bpm. Normal axis. Normal [place], QRS, QTc intervals. No ST segment elevations or T wave inversions. - Labs Labs: Laboratory Tests 03/12/23 03/12/23 03/12/23 22:10 23:00 23:00 WBC 13.5 H RBC 5.25 Hgb 14.1 Hct 45.0 MCV 85.7 MCH 26.9 L MCHC 31.3 L RDW 13.3 Plt Count 241 MPV 10.6 Neut # (Auto) 9.9 H Lymph # (Auto) 2.4 [place] # (Auto) 0.8 Eos # (Auto) 0.3 Baso # (Auto) 0.1 Absolute Nucleated RBC 0.00 Nucleated RBC % 0.0 D-Dimer < 200.0 L Sodium Potassium Chloride Carbon Dioxide Anion Gap BUN Creatinine Estimated GFR (MDRD) Glucose Calcium Total Bilirubin AST ALT Alkaline Phosphatase Troponin I High Sens Total Protein Albumin Globulin Albumin/Globulin Ratio Lipase Nasal Adenovirus (PCR) NOT DETECTED Nasal B. parapertussis DNA (PCR) NOT DETECTED Nasal Coronavir 229E PCR NOT DETECTED Nasal Coronavir HKU1 PCR NOT DETECTED Nasal Coronavir NL63 PCR NOT DETECTED Nasal Coronavir OC43 PCR NOT DETECTED Nasal Enterovir/Rhinovir PCR DETECTED A Nasal Influenza B PCR NOT DETECTED Nasal Influenza A PCR NOT DETECTED Nasal Parainfluen 1 PCR NOT DETECTED Nasal Parainfluen 2 PCR NOT DETECTED Nasal Parainfluen 3 PCR NOT DETECTED Nasal Parainfluen 4 PCR NOT DETECTED Nasal RSV (PCR) NOT DETECTED Nasal B.pertussis DNA PCR NOT DETECTED Nasal C.pneumoniae (PCR) NOT DETECTED [place] Human Metapneumo PCR NOT DETECTED Nasal M.pneumoniae (PCR) NOT DETECTED Nasal SARS-CoV-2 (PCR) NOT DETECTED 03/12/23 03/12/23 23:00 23:00 WBC RBC Hgb Hct MCV MCH MCHC RDW Plt Count MPV Neut # (Auto) Lymph # (Auto) [place] # (Auto) Eos # (Auto) Baso # (Auto) Absolute Nucleated RBC Nucleated RBC % D-Dimer Sodium 139 Potassium 3.6 Chloride 107 Carbon Dioxide 23 Anion Gap 9.0 BUN 13 Creatinine 0.6 Estimated GFR (MDRD) 150 Glucose 97 Calcium 8.6 Total Bilirubin 0.6 AST 12 ALT 16 Alkaline Phosphatase 49 Troponin I High Sens 4.5 Total Protein 7.6 Albumin 3.9 Globulin 3.7 Albumin/Globulin Ratio 1.1 Lipase 37 Nasal Adenovirus (PCR) Nasal B. parapertussis DNA (PCR) Nasal Coronavir 229E PCR Nasal Coronavir HKU1 PCR Nasal Coronavir NL63 PCR Nasal Coronavir OC43 PCR Nasal Enterovir/Rhinovir PCR Nasal Influenza B PCR Nasal Influenza A PCR Nasal Parainfluen 1 PCR Nasal Parainfluen 2 PCR Nasal Parainfluen 3 PCR Nasal Parainfluen 4 PCR Nasal RSV (PCR) Nasal B.pertussis DNA PCR Nasal C.pneumoniae (PCR) [place] Human Metapneumo PCR Nasal M.pneumoniae (PCR) Nasal SARS-CoV-2 (PCR) PD Medical Decision Making - ED course ED course: Patient 37-year-old male presenting to the emergency department with fever, cough, congestion. Afebrile, he medically stable on arrival to the emergency department. Clear aeration in all lung madden. Did endorse for some left-sided chest pain. EKG and high-sensitivity troponin negative. Additionally did obtain a D-dimer which was negative. His other labs are all within normal limits. His respiratory viral panel is positive for rhinovirus his chest x-ray is negative for consolidation. Findings discussed directly with patient. At time of discharge I was not able to review his chest x-ray however given his appropriate clinical presentation he was discharged with medications for symptomatic management including Tessalon Perles and a refill for his albuterol inhaler. He was encouraged to follow-up with his primary care doctor or return to the emergency department. Departure - Departure Disposition: 01 Home, Self Care Clinical Impression: Rhinovirus infection Instructions: ED Viral Syndrome Prescriptions: Albuterol Sulf [Ventolin Hfa Inhaler] 1 - 2 puffs INH Q4HR PRN #1 each PRN Reason: Shortness Of Air/Wheezing Benzonatate [Tessalon] 200 mg PO TID PRN #30 cap PRN Reason: Cough Comments: Thank you for allowing us to care for you today at [facility]. Today in the emergency department you are diagnosed with an acute rhinovirus infection. Attached is some information about viral syndromes. Please drink plenty fluids and get plenty of rest. I have sent a refill for your albuterol inhaler to [facility] in [place]. Please make a follow-up appoint with your primary care doctor. If it anytime you develop any new or worsening symptoms please do not hesitate to return. Discharge Date/Time: 03/13/23 00:58
--- NOTE | 2023-03-13 01:41 | XRAY Report ---
PROCEDURE: Chest 1 View X-Ray INDICATIONS: chest pain TECHNIQUE: One view of the chest was acquired. COMPARISON: Chest x-ray 09/03/2022. FINDINGS: Surgical changes and devices: None. Lungs and pleura: No pleural effusions or pneumothorax. Lungs are clear. Mediastinum: Mediastinal contours appear normal. Heart size is normal. Bones and chest wall: No suspicious bony lesions. Overlying soft tissues appear unremarkable. IMPRESSION: No acute cardiopulmonary disease. Reviewed by: You Rodriguez MD on 03/13/2023 1:40 AM PDT Approved by: You Rodriguez MD on 03/13/2023 1:40 AM PDT Station ID: [id number]
== END 2023-03-13 00:58 | disposition home or self-care (01) ==
LOC: ED 21:54
DX: B34.8 Other viral infections of unspecified site (principal); Z20.822 Contact with and (suspected) exposure to COVID-19
CPT/HCPCS: 36415; 80053; 83690; 84484; 85025; 85379; 87633; 93005; 99284

== ENCOUNTER 2023-03-13 18:58 | Outpatient (CLI) | payer MEDICAID | END 2023-03-13 23:59 | disposition critical access hospital (66) | LOC: EMS 18:58 | DX: R50.9 Fever, unspecified (principal); R05.9 Cough, unspecified; M54.9 Dorsalgia, unspecified; R53.1 Weakness | CPT/HCPCS: A0425; A0429; A0999 ==

== ENCOUNTER 2023-07-08 20:59 | Outpatient (CLI) | payer MEDICAID | END 2023-07-08 21:00 | disposition critical access hospital (66) | LOC: EMS 20:59 | DX: R07.89 Other chest pain (principal); M54.6 Pain in thoracic spine | CPT/HCPCS: A0425; A0429; A0999 ==

== ENCOUNTER 2023-07-08 21:03 | Emergency (ER) | payer MEDICAID ==
--- NOTE | 2023-07-08 21:06 | ED Physician Documentation ---
PD HPI CHEST PAIN - Stated complaint Stated Complaint: CHEST PX - History obtained from History obtained from: Patient, EMS - Additional information Additional information: BIBA. HPI from patient, EMS. Patient complains of sudden onset of midline, upper back pain that radiates straight through his chest to the anterior chest. This was of sudden onset approximately 45 minutes prior to arrival; onset was when he stood up from his wheelchair. Pain is worse with inspiration (pleuritic), movement. Denies history of similar symptoms. 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 denies: Palpitations Respiratory: denies: Dyspnea, Cough, Wheezing GI: reports: Reviewed and negative PD PAST MEDICAL HISTORY - Past Medical History Cardiovascular: Arrhythmia Respiratory: Asthma Neuro: Migraines Endocrine/Autoimmune: None GI: GERD : None HEENT: Chronic vision loss Psych: Anxiety Musculoskeletal: Rheumatoid arthritis, Other Derm: None - Past Surgical History Past Surgical History: Yes Ortho: Arthroscopic surgery - Present Medications Home Medications: Ambulatory Orders Medication Instructions Recorded Confirmed Albuterol Sulf [Ventolin Hfa 1 - 2 puffs INH Q4HR PRN #1 inhaler 09/24/19 09/03/22 Inhaler] Lisinopril [Zestril] 10 mg PO BID #30 tablet 11/16/22 HYDROmorphone [Dilaudid] 2 mg PO Q6H PRN #10 tablet 12/21/22 Omeprazole 40 mg PO DAILY #30 cap 02/03/23 Acetaminophen [Tylenol] 650 mg PO Q6H PRN #30 tab 03/13/23 Albuterol Sulf [Ventolin Hfa 1 - 2 puffs INH Q4HR PRN #1 each 03/13/23 Inhaler] Benzonatate [Tessalon] 200 mg PO TID PRN #30 cap 03/13/23 Cetirizine [ZyrTEC] 10 mg PO DAILY #30 tablet 03/13/23 - Allergies Allergies/Adverse Reactions: Allergies Allergy/AdvReac Type Severity Reaction Status Date / Time dexamethasone Allergy Anxiety Verified 02/03/23 11:40 ketorolac tromethamine * Allergy Unknown Verified 02/03/23 11:40 [From Toradol] tramadol Allergy Unknown Verified 02/03/23 11:40 acetaminophen [From Vicodin] AdvReac severe Verified 02/03/23 11:40 headache hydrocodone bitartrate * AdvReac severe Verified 02/03/23 11:40 [From Vicodin] headache NSAIDS (Non-Steroidal AdvReac Nausea Verified 02/03/23 11:40 Anti-Inflamma oxycodone AdvReac Unknown Verified 02/03/23 11:40 - Social History Does the pt smoke?: No Smoking Status: Never smoker Does the pt drink ETOH?: Yes Does the pt have substance abuse?: No - Immunizations Immunizations are current?: Yes - POLST Patient has POLST: No PD ED PE NORMAL - Vitals Vital signs reviewed: Yes - General General: Alert and oriented X 3, No acute distress, Well developed/nourished - Cardiac Cardiac: RRR, No murmur, No gallop, No rub - Respiratory Respiratory: No respiratory distress, Clear bilaterally - Abdomen Abdomen: Soft, Non tender - Extremities Extremities: Other (BLE braces, BUE chronic changes c/w PMHx of arthrogryposis) - Neuro Neuro: Alert and oriented X 3 Results - Vitals Vitals: Vital Signs - 24 hr 07/08/23 07/08/23 07/08/23 21:08 21:32 22:49 Temperature 37 C 36.3 C L 36.3 C L Heart Rate 86 76 82 Respiratory 20 17 18 Rate Blood Pressure 162/105 H 148/72 H 131/74 H O2 Saturation 100 96 96 07/08/23 23:29 Temperature 36.4 C L Heart Rate 71 Respiratory 20 Rate Blood Pressure 125/75 O2 Saturation 100 Oxygen O2 Source Room air - EKG (time done) No standard instances EKG releavant findings:: EKG personally interpreted by author of this note. Relevant findings are: Rate: Rate (enter#) (93) Rhythm: NSR [place]: Normal Intervals: Normal ID QRS: Normal Ischemia: Normal ST segments - Labs Labs: Laboratory Tests 07/08/23 07/08/23 07/08/23 21:40 21:40 21:40 WBC 9.4 RBC 5.30 Hgb 14.4 Hct 45.4 MCV 85.7 MCH 27.2 MCHC 31.7 L RDW 13.4 Plt Count 263 MPV 11.0 Neut # (Auto) 6.4 Lymph # (Auto) 2.2 [place] # (Auto) 0.6 Eos # (Auto) 0.2 Baso # (Auto) 0.1 Absolute Nucleated RBC 0.00 Nucleated RBC % 0.0 D-Dimer Sodium 140 Potassium 3.5 Chloride 109 Carbon Dioxide 21 Anion Gap 10.0 BUN 16 Creatinine 0.6 Estimated GFR (MDRD) 149 Glucose 127 H Calcium 9.0 Total Bilirubin 0.3 AST 14 ALT 13 Alkaline Phosphatase 56 Troponin I High Sens 4.8 Total Protein 7.3 Albumin 3.7 Globulin 3.6 Albumin/Globulin Ratio 1.0 Lipase 30 07/08/23 21:46 WBC RBC Hgb Hct MCV MCH MCHC RDW Plt Count MPV Neut # (Auto) Lymph # (Auto) [place] # (Auto) Eos # (Auto) Baso # (Auto) Absolute Nucleated RBC Nucleated RBC % D-Dimer < 200.0 L Sodium Potassium Chloride Carbon Dioxide Anion Gap BUN Creatinine Estimated GFR (MDRD) Glucose Calcium Total Bilirubin AST ALT Alkaline Phosphatase Troponin I High Sens Total Protein Albumin Globulin Albumin/Globulin Ratio Lipase - Rads (name of study) chest xray Relevant Findings:: Prelim report reviewed, See rad report PD Medical Decision Making - ED course Complexity details: reviewed results, re-evaluated patient, considered differential, d/w patient ED course: Tests ordered and results reviewed by me: CBC, ER abdominal panel, high- sensitivity troponin, d-dimer, chest x-ray, EKG. There are no concerning or diagnostic findings on these tests. ER abdominal panel is entirely normal except for glucose 127. Similarly, the CBC is entirely normal except MCHC. Normal high-sensitivity troponin, negative D-dimer (less than 200). . The cause of his symptoms are not apparent at this time. Given the sudden onset of upper back pain as he was standing up from his wheelchair, thoracic sprain/strain is increasingly likely etiology given tonight's unremarkable test results. Results discussed with patient. Without intervention, he is feeling improved at the time of reevaluation. Return precautions are discussed, advised to follow- up with his primary care provider for reevaluation. Departure - Departure Disposition: 01 Home, Self Care Clinical Impression: Back pain Qualifiers: Back pain location: thoracic back pain Chronicity: acute Back pain laterality: midline Qualified Code(s): M54.6 - Pain in thoracic spine Chest pain Qualifiers: Chest pain type: unspecified Qualified Code(s): R07.9 - Chest pain, unspecified Condition: Good Instructions: ED Chest Pain Atypical Unkn Cause, ED Neck Back Pain General Comments: There were no concerning or diagnostic findings on tonight's test, including the EKG, blood test, and the chest x-ray. The cause of your pain is not apparent at this time. Some causes of back and chest pain, such as muscular strain or impingement on the nerve, will not show on tests available in the emergency department. Follow-up with your primary care provider, next available appointment, for reevaluation and consideration of further testing. Forms: PCP List Discharge Date/Time: 07/08/23 23:30
[2023-07-08 21:48] LABS: BASOPHILS # (AUTO) 0.1 10^3/uL (0.0-0.1); BASOPHILS % (AUTO) 0.6 %; EOSINOPHILS # (AUTO) 0.2 10^3/uL (0.0-0.7); HCT - HEMATOCRIT 45.4 % (42.0-52.0); HGB - HEMOGLOBIN 14.4 g/dL (14.0-18.0); LYMPHOCYTES # (AUTO) 2.2 10^3/uL (1.5-3.5); LYMPHOCYTES % (AUTO) 23.5 %; MEAN CORPUSCULAR HEMOGLOBIN 27.2 pg (27.0-31.0); MEAN CORPUSCULAR HGB CONC 31.7 g/dL (32.0-36.0); MEAN CORPUSCULAR VOLUME 85.7 fL (80.0-94.0); MONOCYTES # (AUTO) 0.6 10^3/uL (0.0-1.0); MONOCYTES % (AUTO) 6.1 %; NEUTROPHILS # (AUTO) 6.4 10^3/uL (1.5-6.6); NEUTROPHILS % (AUTO) 67.5 %; PLT - PLATELET COUNT 263 10^3/uL (130-450); RED CELL DISTRIBUTION WIDTH 13.4 % (12.0-15.0); WHITE BLOOD COUNT 9.4 x10^3/uL (4.8-10.8)
[2023-07-08 22:04] LABS: ALBUMIN 3.7 g/dL (3.2-5.5); BILIRUBIN,TOTAL 0.3 mg/dL (0.2-1.0); CREATININE 0.6 mg/dL (0.6-1.2); POTASSIUM 3.5 mmol/L (3.5-5.0); TOTAL PROTEIN 7.3 g/dL (6.7-8.2)
--- NOTE | 2023-07-08 22:59 | XRAY Report ---
PROCEDURE: Chest 2 View X-Ray INDICATIONS: chest pain TECHNIQUE: 2 views of the chest were acquired. COMPARISON: 03/13/2023. FINDINGS: Surgical changes and devices: None. Lungs and pleura: No pleural effusions or pneumothorax. Lungs are clear. Mediastinum: Mediastinal contours appear normal. Heart size is normal. Bones and chest wall: No suspicious bony lesions. There are skin folds laterally in the right hemith orax. IMPRESSION: 1. No acute cardiopulmonary disease. Reviewed by: You Rodriguez MD on 07/08/2023 10:57 PM PDT Approved by: You Rodriguez MD on 07/08/2023 10:57 PM PDT Station ID: [id number]
[2023-07-08 23:35] VITALS: BP 125/75; O2SAT 100
== END 2023-07-08 23:30 | disposition home or self-care (01) ==
LOC: EDUNIT# → ED 21:03
DX: M54.6 Pain in thoracic spine (principal); R07.9 Chest pain, unspecified
CPT/HCPCS: 36415; 80053; 83690; 84484; 85025; 85379; 93005; 99283; 99284

== ENCOUNTER 2023-07-09 23:33 | Emergency (ER) | payer MEDICAID ==
[2023-07-10] MEDS ORDERED: PROMETHAZINE 25 MG TABLET PO STA (00:18)
[2023-07-10] MEDS ORDERED: ACETAMINOPHEN 325 MG TABLET PO STA (00:19)
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
[2023-07-10 00:47] VITALS: BP 135/85; O2SAT 100
== END 2023-07-10 00:35 | disposition home or self-care (01) ==
LOC: ED 23:33
DX: S09.90XA Unspecified injury of head, initial encounter (principal); W05.1XXA Fall from non-moving nonmotorized scooter, initial encounter
CPT/HCPCS: 99282; A9270; Q0169

== ENCOUNTER 2023-08-12 16:26 | Emergency (ER) | payer MEDICAID ==
[2023-08-12 16:59] VITALS: O2SAT 98
--- NOTE | 2023-08-12 18:59 | XRAY Report ---
PROCEDURE: Ribs w/PA Chest LT INDICATIONS: fall, pain TECHNIQUE: 2 views of the left ribs were acquired, along with a single view chest. COMPARISON: None. FINDINGS: Surgical changes and devices: None. Bones and chest wall: No fractures or dislocations. No suspicious bony lesions. Overlying soft tis sues appear unremarkable. Lungs and pleura: No pleural effusions or pneumothorax. Low lung volumes. Lungs appear clear. Mediastinum: Mediastinal contours appear normal. Heart size is enlarged. IMPRESSION: No displaced rib fracture or pneumothorax. Cardiomegaly Reviewed by: Betty Sevilla MD on 08/12/2023 6:57 PM PDT Approved by: Betty Sevilla MD on 08/12/2023 6:57 PM PDT Station ID: [id number]
[2023-08-12] MEDS ORDERED: HYDROmorphone 1 MG/ML CARPUJECT IM STA ×2 (19:23→19:32)
[2023-08-12] MEDS ORDERED: KETOROLAC 60 MG/2 ML VIAL IM STA (19:23)
--- NOTE | 2023-08-12 19:30 | ED Physician Documentation ---
History of Present Illness - Stated complaint Stated Complaint: FALL/RIB PX - Chief complaint Chief Complaint: General - History obtained from History obtained from: Patient - History of Present Illness Timing: How many days ago (2) Pain level max: 6 Pain level now: 6 - Additonal information Additional information: Patient is a 38-year-old male who presents to the emergency department stating that 2 days ago he fell and injured the left ribs on the ground. He was seen at [facility]. Negative x-rays at that time. Has had continued pain. Worried about potential pulmonary contusion. No fevers. No chills. Pain is worse with movement, deep breathing and coughing. No head injury, no loss of consciousness. No neck or back pain. Review of Systems Constitutional: denies: Fever, Chills GI: denies: Vomiting, Diarrhea Skin: denies: Rash Musculoskeletal: denies: Neck pain, Back pain Neurologic: denies: Focal weakness, Numbness, Seizure, Confused, Headache, Head injury, LOC PD PAST MEDICAL HISTORY - Past Medical History Cardiovascular: Arrhythmia Respiratory: Asthma Neuro: Migraines Endocrine/Autoimmune: None GI: GERD : None HEENT: Chronic vision loss Psych: Anxiety Musculoskeletal: Rheumatoid arthritis, Other Derm: None - Past Surgical History Past Surgical History: Yes Ortho: Arthroscopic surgery - Present Medications Home Medications: Ambulatory Orders Medication Instructions Recorded Confirmed Albuterol Sulf [Ventolin Hfa 1 - 2 puffs INH Q4HR PRN #1 inhaler 09/24/19 09/03/22 Inhaler] Lisinopril [Zestril] 10 mg PO BID #30 tablet 11/16/22 HYDROmorphone [Dilaudid] 2 mg PO Q6H PRN #10 tablet 12/21/22 Omeprazole 40 mg PO DAILY #30 cap 02/03/23 Acetaminophen [Tylenol] 650 mg PO Q6H PRN #30 tab 03/13/23 Albuterol Sulf [Ventolin Hfa 1 - 2 puffs INH Q4HR PRN #1 each 03/13/23 Inhaler] Benzonatate [Tessalon] 200 mg PO TID PRN #30 cap 03/13/23 Cetirizine [ZyrTEC] 10 mg PO DAILY #30 tablet 03/13/23 Clotrimazole/Betamethasone Crm 1 applic TOP BID #1 each 08/12/23 [Lotrisone Cream] - Allergies Allergies/Adverse Reactions: Allergies Allergy/AdvReac Type Severity Reaction Status Date / Time dexamethasone Allergy Anxiety Verified 07/09/23 23:44 tramadol Allergy Unknown Verified 07/09/23 23:44 acetaminophen [From Vicodin] AdvReac severe Verified 07/09/23 23:44 headache hydrocodone bitartrate * AdvReac severe Verified 07/09/23 23:44 [From Vicodin] headache hydromorphone [From Dilaudid] AdvReac Headache Verified 08/12/23 16:44 NSAIDS (Non-Steroidal AdvReac Nausea Verified 07/09/23 23:44 Anti-Inflamma oxycodone AdvReac Unknown Verified 07/09/23 23:44 - Social History Does the pt smoke?: No Smoking Status: Never smoker Does the pt drink ETOH?: Yes Does the pt have substance abuse?: No - Immunizations Immunizations are current?: Yes - POLST Patient has POLST: No PD ED PE NORMAL - Vitals Vital signs reviewed: Yes - General General: Alert and oriented X 3, No acute distress - HEENT HEENT: Atraumatic, PERRL, EOMI, Ears normal, Moist mucous membranes - Neck Neck: Supple, no meningeal sign, No bony TTP - Cardiac Cardiac: RRR, Strong equal pulses - Respiratory Respiratory: No respiratory distress, Clear bilaterally, Other (Tender to palpation over the left upper anterior and mid axillary areas of the chest wall. No crepitus. No ecchymosis. Reproduces his pain. Otherwise normal examination of the chest and back.) - Abdomen Abdomen: Soft, Non tender, Non distended - Back Back: No CVA TTP, No spinal TTP - Derm Derm: Warm and dry - Extremities Extremities: Other (Chronic limb deformities, no acute abnormalities. 2 x 2 centimeter patch of erythematous, scaly skin to the right ankle, medial aspect. No vesicles, pustules or drainage.) - Neuro Neuro: Alert and oriented X 3 - Psych Psych: Normal mood, Normal affect Results - Vitals Vitals: Vital Signs - 24 hr 08/12/23 08/12/23 08/12/23 16:38 19:41 19:52 Temperature 37.4 C Heart Rate 70 66 81 Respiratory 18 20 18 Rate Blood Pressure 149/104 H 156/104 H 153/101 H O2 Saturation 98 98 98 Oxygen O2 Source Room air - Rads (name of study) ribs with cxr Relevant Findings:: Final report received, See rad report PD Medical Decision Making - ED course Complexity details: reviewed results, re-evaluated patient, considered differential, d/w patient ED course: No acute findings on x-ray. Has oral Dilaudid at home and oral Toradol at home. Given a dose of Toradol here. Also given a dose of Dilaudid here. Pain well controlled. No pneumothorax or hemothorax. He does have a small patch of itchy skin on his right ankle, we will prescribe an antifungal/steroid cream for this. We will have him follow-up with his PCP for further care. No indication for CT scan. No indication for further testing. No emergency medical condition. Patient counseled regarding signs and symptoms for which I believe and urgent re-evaluation would be necessary. Patient with good understanding of and agreement to plan and is comfortable going home at this time This document was made in part using voice recognition software. While efforts are made to proofread this document, sound alike and grammatical errors may occur. Departure - Departure Disposition: Home, Self Care Clinical Impression: Contusion of rib on left side Qualifiers: Encounter type: initial encounter Qualified Code(s): S20.212A - Contusion of left front wall of thorax, initial encounter Tinea pedis Qualifiers: Laterality: right Qualified Code(s): B35.3 - Tinea pedis Condition: Good Instructions: ED Fungal Infec Athlete Foot, ED Contusion Vs Minor Fx Rib Follow-Up: your,doctor in 1 week [Other] Prescriptions: Clotrimazole/Betamethasone Crm [Lotrisone Cream] 1 applic TOP BID #1 each Comments: Follow up with your doctor for further care. Your xrays are normal today. Use the cream on the patch of skin on your ankle, this should resolve in 1 to 2 weeks. Return if you worsen Forms: PCP List Discharge Date/Time: 08/12/23 19:51
[2023-08-12 19:52] VITALS: BP 153/101
== END 2023-08-12 19:51 | disposition home or self-care (01) ==
LOC: ED 16:26
DX: S20.212A Contusion of left front wall of thorax, initial encounter (principal); X58.XXXA Exposure to other specified factors, initial encounter
CPT/HCPCS: 71101; 96372; 99283; J1170

== ENCOUNTER 2023-09-08 13:01 | Emergency (ER) | payer MEDICAID ==
[2023-09-08 13:46] VITALS: O2SAT 100
--- NOTE | 2023-09-08 15:41 | Ultrasound Report ---
PROCEDURE: Testicle w/Doppler INDICATIONS: bilateral test pain for several weeks TECHNIQUE: Real-time scanning was performed of the scrotum and testicles, with image documentation. Color and p ulse Doppler interrogation was performed of both testicles. COMPARISON: None. FINDINGS: Right: Testicle is normal in size at 4.5 x 2.5 x 3 cm, and homogenous in echotexture. Epididymis is normal in overall size and morphology. Small hydrocele is present. Possible right varicocele is pres ent. Increased right epididymal vascularity. Left: Testicle is normal in size at 4.4 x 2.2 x 3.4 cm, and homogeneous in echotexture. Epididymis is normal in overall size and morphology. No hydrocele. No varicoceles. Overlying scrotal skin is n ormal in thickness. Doppler: Color and pulse Doppler demonstrate normal and symmetric arterial flow in both testicles. IMPRESSION: Suspected right epididymitis. Small hydrocele. Possible small right varicocele without left varicocele. This can be abnormal due to proximal obstruc tion and follow-up is suggested. If persistent, consider CT to assess for any intra-abdominal obstruc ting lesion. No torsion. Reviewed by: Nicholas Nesbitt MD on 09/08/2023 3:39 PM PST Approved by: Nicholas Nesbitt MD on 09/08/2023 3:39 PM PST Station ID: [id number]
[2023-09-08 16:02] LABS: BILIRUBIN,URINE NEGATIVE (NEGATIVE); GLUCOSE, URINE (UA) NEGATIVE (NEGATIVE); KETONES,URINE (UA) TRACE mg/dL (NEGATIVE); LEUKOCYTE ESTERASE, URINE NEGATIVE (NEGATIVE); NITRITE,URINE NEGATIVE (NEGATIVE); OCCULT BLOOD,URINE SMALL (NEGATIVE); PROTEIN,URINE NEGATIVE (NEGATIVE); UROBILINOGEN,URINE 1 (NORMAL) E.U./dL (NORMAL)
[2023-09-08 16:04] LABS: CLARITY,URINE CLEAR (CLEAR)
[2023-09-08] MEDS ORDERED: cefTRIAXone 500 MG VIAL IM STA (16:13)
[2023-09-08] MEDS ORDERED: LIDOCAINE 1% 2 ML VIAL MC ONE (16:13)
[2023-09-08 16:14] LABS: BACTERIA,URINE None Seen /HPF (None Seen); RBC,URINE 0-5 /HPF (0-5); SQUAMOUS EPITHELIAL CELL,UR RARE Squamous (<= Few); WBC,URINE 0-3 /HPF (0-3)
[2023-09-08] MEDS ORDERED: DOXYCYCLINE 100 MG TABLET PO STA (16:15)
--- NOTE | 2023-09-08 16:43 | ED Physician Documentation ---
PD HPI MALE - Stated complaint Stated Complaint: PAINFUL - Chief complaint Chief Complaint: General - History obtained from History obtained from: Patient - Additional information Additional information: Patient is a 38-year-old male presenting for evaluation of bilateral testicular pain for the past 2 days. He states that it feels like somebody has stepped on his scrotum. He reports having some clear penile discharge but denies dysuria. He denies concerns for sexually transmitted infections. He denies fever, abdominal pain, nausea or vomiting. Nothing makes his symptoms better or worse. Denies history of similar symptoms in the past. PD PAST MEDICAL HISTORY - Past Medical History Past Medical History: Yes Cardiovascular: Arrhythmia Respiratory: Asthma Neuro: Migraines Endocrine/Autoimmune: None GI: GERD : None HEENT: Chronic vision loss Psych: Anxiety Musculoskeletal: Rheumatoid arthritis, Other Derm: None - Past Surgical History Past Surgical History: Yes Ortho: Arthroscopic surgery - Present Medications Home Medications: Ambulatory Orders Medication Instructions Recorded Confirmed Albuterol Sulf [Ventolin Hfa 1 - 2 puffs INH Q4HR PRN #1 inhaler 09/24/19 09/03/22 Inhaler] Lisinopril [Zestril] 10 mg PO BID #30 tablet 11/16/22 HYDROmorphone [Dilaudid] 2 mg PO Q6H PRN #10 tablet 12/21/22 Omeprazole 40 mg PO DAILY #30 cap 02/03/23 Acetaminophen [Tylenol] 650 mg PO Q6H PRN #30 tab 03/13/23 Albuterol Sulf [Ventolin Hfa 1 - 2 puffs INH Q4HR PRN #1 each 03/13/23 Inhaler] Benzonatate [Tessalon] 200 mg PO TID PRN #30 cap 03/13/23 Cetirizine [ZyrTEC] 10 mg PO DAILY #30 tablet 03/13/23 Clotrimazole/Betamethasone Crm 1 applic TOP BID #1 each 08/12/23 [Lotrisone Cream] Doxycycline Hyclate 100 mg PO BID 10 Days #20 tab 09/08/23 - Allergies Allergies/Adverse Reactions: Allergies Allergy/AdvReac Type Severity Reaction Status Date / Time dexamethasone Allergy Anxiety Verified 07/09/23 23:44 tramadol Allergy Unknown Verified 07/09/23 23:44 acetaminophen [From Vicodin] AdvReac severe Verified 07/09/23 23:44 headache hydrocodone bitartrate * AdvReac severe Verified 07/09/23 23:44 [From Vicodin] headache hydromorphone [From Dilaudid] AdvReac Headache Verified 08/12/23 16:44 NSAIDS (Non-Steroidal AdvReac Nausea Verified 07/09/23 23:44 Anti-Inflamma oxycodone AdvReac Unknown Verified 07/09/23 23:44 - Social History Does the pt smoke?: No Smoking Status: Never smoker Does the pt drink ETOH?: Yes Does the pt have substance abuse?: No - Immunizations Immunizations are current?: Yes - POLST Patient has POLST: No PD ED PE NORMAL - General General: Alert and oriented X 3, No acute distress, Well developed/nourished - HEENT HEENT: Atraumatic - Respiratory Respiratory: No respiratory distress - Abdomen Abdomen: Normal bowel sounds, Soft, Non tender, Non distended - Male Male : 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[employer]), Other (No significant scrotal swelling, mild bilateral testicular tenderness; normal testicular lie; normal cremaseteric reflex) Results - Vitals Vitals: Vital Signs - 24 hr 09/08/23 09/08/23 13:35 17:02 Temperature 37.1 C 36.5 C Heart Rate 86 72 Respiratory 16 18 Rate Blood Pressure 158/116 H 154/97 H O2 Saturation 100 100 Oxygen O2 Source Room air - Labs Labs: Laboratory Tests 09/08/23 09/08/23 15:46 15:46 Urine Color YELLOW Urine Clarity CLEAR Urine pH 6.0 Ur Specific [place] 1.015 Urine Protein NEGATIVE Urine Glucose (UA) NEGATIVE Urine Ketones TRACE Urine Occult Blood SMALL H Urine Nitrite NEGATIVE Urine Bilirubin NEGATIVE Urine Urobilinogen 1 (NORMAL) Ur Leukocyte Esterase NEGATIVE Urine RBC 0-5 Urine WBC 0-3 Ur Squamous Epith Cells RARE Squamous Urine Bacteria None Seen Ur Microscopic Review INDICATED Urine Culture Comments NOT INDICATED Chlam trachomat DNA PCR NEGATIVE N.gonorrhoeae DNA (PCR) NEGATIVE T. vaginalis (PCR) NEGATIVE PD Medical Decision Making - ED course Complexity details: reviewed results, re-evaluated patient, d/w patient ED course: Patient with testicular/scrotal pain x 2 days. U/S negative for torsion and exam not consistent with torsion. U/S Shows findings of epididymitis. UA negative for infection. STD testing pending. Pt started on antibiotics. Advised regarding treatment plan and concerning symptoms to return for. Departure - Departure Disposition: 01 Home, Self Care Clinical Impression: Epididymitis Condition: Stable Instructions: ED Epididymitis Prescriptions: Doxycycline Hyclate 100 mg PO BID 10 Days #20 tab Comments: You were evaluated for pain to the scrotum and testicle region. Your ultrasound shows good flow to both testicles but do have findings of epididymitis which is an infection. I have sent a prescription for an antibiotic to [facility] in [place]. Please make sure you complete the course of the antibiotics. IMPRESSION: Suspected right epididymitis. Small hydrocele. Possible small right varicocele without left varicocele. This can be abnormal due to proximal obstruction and follow-up is suggested. If persistent, consider CT to assess for any intra-abdominal obstructing lesion. No torsion. Forms: PCP List Discharge Date/Time: 09/08/23 17:06
[2023-09-08 17:10] VITALS: BP 154/97
[2023-09-08 20:10] LABS: CHLAMYDIA TRACHOMATIS DNA NEGATIVE (NEGATIVE); NEISSERIA GONORRHOEAE DNA NEGATIVE (NEGATIVE); TRICHOMONAS VAGINALIS DNA NEGATIVE (NEGATIVE)
== END 2023-09-08 17:06 | disposition home or self-care (01) ==
LOC: ED 13:01
DX: N45.1 Epididymitis (principal); Z79.899 Other long term (current) drug therapy
CPT/HCPCS: 76870; 81001; 87491; 87591; 87661; 93975; 96372; 99283; 99284; A9270; 81003; 87086

== ENCOUNTER 2023-09-26 18:11 | Emergency (ER) | payer MEDICAID ==
[2023-09-26 18:33] VITALS: BP 125/87; O2SAT 97
--- NOTE | 2023-09-26 19:00 | XRAY Report ---
PROCEDURE: Knee 4 View RT INDICATIONS: knee inj TECHNIQUE: 4 views of the knee(s) were acquired. COMPARISON: 12/21/2022 FINDINGS: Bones: Overall moderate degenerative changes with osteophytes and joint space narrowing. No displaced fracture is identified. Suspected prominent posterior osteophyte also seen. Soft tissues: Moderate joint effusion. Extensor mechanism enthesopathy. Possible small loose bodies i n the joint space. IMPRESSION: No displaced fracture or dislocation. There is however a moderate joint effusion as well as moderate degenerative changes. If there is high concern for further derangement, consider MRI evaluation. Reviewed by: Nicholas Nesbitt MD on 09/26/2023 6:58 PM PST Approved by: Nicholas Nesbitt MD on 09/26/2023 6:58 PM PST Station ID: [id number]
[2023-09-26] MEDS ORDERED: PROMETHAZINE 25 MG/1 ML VIAL IM STA (19:09)
[2023-09-26] MEDS ORDERED: HYDROmorphone 1 MG/ML CARPUJECT IM STA (19:09)
--- NOTE | 2023-09-26 19:11 | ED Physician Documentation ---
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 He has a history of ligamentous injuries in that knee and has seen [facility] for it. Today was walking in twisted his knee and has more severe lateral knee pain. No other injuries. PD PAST MEDICAL HISTORY - Past Medical History Cardiovascular: Arrhythmia Respiratory: Asthma Neuro: Migraines Endocrine/Autoimmune: None GI: GERD : None HEENT: Chronic vision loss Psych: Anxiety Musculoskeletal: Rheumatoid arthritis, Other Derm: None - Past Surgical History Past Surgical History: Yes Ortho: Arthroscopic surgery - Present Medications Home Medications: Ambulatory Orders Medication Instructions Recorded Confirmed Albuterol Sulf [Ventolin Hfa 1 - 2 puffs INH Q4HR PRN #1 inhaler 09/24/19 09/03/22 Inhaler] Lisinopril [Zestril] 10 mg PO BID #30 tablet 11/16/22 HYDROmorphone [Dilaudid] 2 mg PO Q6H PRN #10 tablet 12/21/22 Omeprazole 40 mg PO DAILY #30 cap 02/03/23 Acetaminophen [Tylenol] 650 mg PO Q6H PRN #30 tab 03/13/23 Albuterol Sulf [Ventolin Hfa 1 - 2 puffs INH Q4HR PRN #1 each 03/13/23 Inhaler] Benzonatate [Tessalon] 200 mg PO TID PRN #30 cap 03/13/23 Cetirizine [ZyrTEC] 10 mg PO DAILY #30 tablet 03/13/23 Clotrimazole/Betamethasone Crm 1 applic TOP BID #1 each 08/12/23 [Lotrisone Cream] Doxycycline Hyclate 100 mg PO BID 10 Days #20 tab 09/08/23 - Allergies Allergies/Adverse Reactions: Allergies Allergy/AdvReac Type Severity Reaction Status Date / Time dexamethasone Allergy Anxiety Verified 07/09/23 23:44 tramadol Allergy Unknown Verified 07/09/23 23:44 acetaminophen [From Vicodin] AdvReac severe Verified 07/09/23 23:44 headache hydrocodone bitartrate * AdvReac severe Verified 07/09/23 23:44 [From Vicodin] headache hydromorphone [From Dilaudid] AdvReac Headache Verified 08/12/23 16:44 NSAIDS (Non-Steroidal AdvReac Nausea Verified 07/09/23 23:44 Anti-Inflamma oxycodone AdvReac Unknown Verified 07/09/23 23:44 - Social History Does the pt smoke?: No Smoking Status: Never smoker Does the pt drink ETOH?: Yes Does the pt have substance abuse?: No - Immunizations Immunizations are current?: Yes - POLST Patient has POLST: No PD ED PE NORMAL - Vitals Vital signs reviewed: Yes - General General: Alert and oriented X 3, No acute distress - Abdomen Abdomen: Normal bowel sounds, Soft, Non tender - Extremities Extremities: Other (There is an effusion of the right knee but no deformity. Tender over the lateral joint line.) - Neuro Neuro: Alert and oriented X 3, Normal speech Results - Vitals Vitals: Vital Signs - 24 hr 09/26/23 18:22 Temperature 36.5 C Heart Rate 89 Respiratory 16 Rate Blood Pressure 125/87 H O2 Saturation 97 Oxygen O2 Source Room air - Rads (name of study) 4 view x-ray right knee without fracture Relevant Findings:: Final report received, EMP independent interpretation of test PD Medical Decision Making - ED course ED course: He did not want any pain medicine action to go home with but did want a dose of Dilaudid here. I acquiesced. Discussed need for follow-up and return precautions. Departure - Departure Disposition: 01 Home, Self Care Clinical Impression: Right knee sprain Qualifiers: Encounter type: initial encounter Involved ligament of knee: lateral collateral ligament Qualified Code(s): S83.421A - Sprain of lateral collateral ligament of right knee, initial encounter Condition: Good Record reviewed to determine appropriate education?: Yes Instructions: ED Sprain Knee Comments: Reasonable to [facility] if not having rapid and significant improvement. Return for new or worsening symptoms.
== END 2023-09-26 19:54 | disposition home or self-care (01) ==
LOC: ED 18:11
DX: S83.421A Sprain of lateral collateral ligament of right knee, initial encounter (principal); X50.1XXA Overexertion from prolonged static or awkward postures, initial encounter; Y93.01 Activity, walking, marching and hiking
CPT/HCPCS: 73564; 96372; 99283; 99284; J1170

== ENCOUNTER 2023-10-04 18:02 | Emergency (ER) | payer MEDICAID ==
[2023-10-04 18:09] VITALS: BP 148/87
--- NOTE | 2023-10-04 18:32 | ED Physician Documentation ---
PD HPI MALE - Stated complaint Stated Complaint: - Chief complaint Chief Complaint: General - History obtained from History obtained from: Patient - History of Present Illness Timing - onset: How many days ago (2) Timing - details: Gradual onset Associated symptoms: Dysuria, Scrotal swelling (mainly left but some to both sides.) PD HPI MALE CONTRIB FACTORS: Sexually active Similar symptoms before: Diagnosis (had similar about a month ago Dx as epididymitis by US. Negative STD tests. Rx with Ropcehina nd got better. Had Rx for Doxycycline but did not take it.) Review of Systems Constitutional: denies: Fever, Chills Skin: denies: Rash PD PAST MEDICAL HISTORY - Past Medical History Past Medical History: Yes Cardiovascular: Arrhythmia Respiratory: Asthma Neuro: Migraines Endocrine/Autoimmune: None GI: GERD : None HEENT: Chronic vision loss Psych: Anxiety Musculoskeletal: Rheumatoid arthritis, Other Derm: None - Past Surgical History Past Surgical History: Yes Ortho: Arthroscopic surgery - Present Medications Home Medications: Ambulatory Orders Medication Instructions Recorded Confirmed Albuterol Sulf [Ventolin Hfa 1 - 2 puffs INH Q4HR PRN #1 inhaler 09/24/19 09/03/22 Inhaler] Lisinopril [Zestril] 10 mg PO BID #30 tablet 11/16/22 HYDROmorphone [Dilaudid] 2 mg PO Q6H PRN #10 tablet 12/21/22 Omeprazole 40 mg PO DAILY #30 cap 02/03/23 Acetaminophen [Tylenol] 650 mg PO Q6H PRN #30 tab 03/13/23 Albuterol Sulf [Ventolin Hfa 1 - 2 puffs INH Q4HR PRN #1 each 03/13/23 Inhaler] Benzonatate [Tessalon] 200 mg PO TID PRN #30 cap 03/13/23 Cetirizine [ZyrTEC] 10 mg PO DAILY #30 tablet 03/13/23 Clotrimazole/Betamethasone Crm 1 applic TOP BID #1 each 08/12/23 [Lotrisone Cream] Doxycycline Hyclate 100 mg PO BID 10 Days #20 tab 09/08/23 Fluconazole [Diflucan] 100 mg PO Q3D #3 tablet 10/04/23 cephALEXin [Keflex] 500 mg PO TID #20 cap 10/04/23 - Allergies Allergies/Adverse Reactions: Allergies Allergy/AdvReac Type Severity Reaction Status Date / Time dexamethasone Allergy Anxiety Verified 10/04/23 18:05 tramadol Allergy Unknown Verified 10/04/23 18:05 acetaminophen [From Vicodin] AdvReac severe Verified 10/04/23 18:05 headache hydrocodone bitartrate * AdvReac severe Verified 10/04/23 18:05 [From Vicodin] headache hydromorphone [From Dilaudid] AdvReac Headache Verified 10/04/23 18:05 NSAIDS (Non-Steroidal AdvReac Nausea Verified 10/04/23 18:05 Anti-Inflamma oxycodone AdvReac Unknown Verified 10/04/23 18:05 - Social History Does the pt smoke?: No Smoking Status: Never smoker Does the pt drink ETOH?: Yes Does the pt have substance abuse?: No - Immunizations Immunizations are current?: Yes - POLST Patient has POLST: No PD ED PE NORMAL - Vitals Vital signs reviewed: Yes - General General: Alert and oriented X 3, No acute distress, Well developed/nourished - Abdomen Abdomen: Soft, Non tender - Male Male : Other (scrotal tenderness both sides in area of epidiymii. Testicles themselves not swollen nor tender. Normal lie. ) - Derm Derm: Normal color, Warm and dry Results - Vitals Vitals: Vital Signs - 24 hr 10/04/23 10/04/23 10/04/23 18:05 18:09 19:24 Temperature 36.9 C 36.9 C Heart Rate 90 90 90 Respiratory 16 16 17 Rate Blood Pressure 148/87 H 148/87 H O2 Saturation 96 96 98 Oxygen O2 Source Room air PD Medical Decision Making - ED course Complexity details: reviewed old records (prior ED visit and lab results from A month ago. ), considered differential (recurrent symptoms similar to a montha go Dx as epididymitis. Can treat as same. ) Departure - Departure Disposition: 01 Home, Self Care Clinical Impression: Epididymitis Condition: Stable Instructions: ED Epididymitis Prescriptions: Fluconazole [Diflucan] 100 mg PO Q3D #3 tablet cephALEXin [Keflex] 500 mg PO TID #20 cap Comments: This seems likely to be a recurrence of the epididymitis like a month ago. We can treat with cephalexin antibiotic and see if it resolves as well as it did last time. Use Tylenol every 4-6 hours if needed for pain as well. I did give you the number for urologist here in [place] for follow-up given the recurrence of it and other problems that you have had. Call and make an appointment at their earliest available. Recheck if not improving well over the next few days. I sent a prescription to your preferred pharmacy. I also prescribed Diflucan so you do not get a yeast infection with the antibiotic use. Forms: PCP List Discharge Date/Time: 10/04/23 19:24
[2023-10-04] MEDS ORDERED: CEPHALEXIN 250 MG Prepack 8 CAP BOTTLE PO STA (18:49)
[2023-10-04] MEDS ORDERED: HYDROmorphone 1 MG/ML CARPUJECT IM STA (18:50)
[2023-10-04 19:25] VITALS: O2SAT 98
== END 2023-10-04 19:24 | disposition home or self-care (01) ==
LOC: ED 18:02
DX: N45.1 Epididymitis (principal); Z79.899 Other long term (current) drug therapy
CPT/HCPCS: 96372; 99283; J1170

== ENCOUNTER 2023-10-29 12:52 | Emergency (ER) | payer MEDICAID ==
[2023-10-29 13:31] VITALS: O2SAT 100
[2023-10-29] MEDS ORDERED: KETOROLAC 60 MG/2 ML VIAL IM STA (17:27)
[2023-10-29] MEDS ORDERED: HYDROmorphone 1 MG/ML CARPUJECT IM STA (17:27)
[2023-10-29] MEDS ORDERED: DEXAMETHASONE 10 MG/ML VIAL IM STA (17:27)
--- NOTE | 2023-10-29 17:27 | ED Physician Documentation ---
History of Present Illness - Stated complaint Stated Complaint: BACK PX, STIFF, DISCOMFORT - Chief complaint Chief Complaint: Back Pain - History obtained from History obtained from: Patient - Additonal information Additional information: The patient comes to the emergency department chief complaint of low to mid back pain since around 9:00 this morning. He states that he had been on the toilet and was transferring back into his wheelchair when he accidentally twisted his back. He states he felt a "pop" and has been having excruciating pain in his spine since. He denies any new sensory or motor deficits. No loss of bowel or bladder function. He states that the pain has gotten worse since sitting in the chair waiting to be seen in the emergency department. No other complaints at this time. PD PAST MEDICAL HISTORY - Past Medical History Past Medical History: Yes Cardiovascular: Hypertension, Arrhythmia Respiratory: Asthma Neuro: Migraines Endocrine/Autoimmune: None GI: GERD : None HEENT: Chronic vision loss Psych: Anxiety Musculoskeletal: Rheumatoid arthritis, Other Derm: None - Past Surgical History Past Surgical History: Yes Ortho: Arthroscopic surgery - Present Medications Home Medications: Ambulatory Orders Medication Instructions Recorded Confirmed Albuterol Sulf [Ventolin Hfa 1 - 2 puffs INH Q4HR PRN #1 inhaler 09/24/19 09/03/22 Inhaler] Lisinopril [Zestril] 10 mg PO BID #30 tablet 11/16/22 HYDROmorphone [Dilaudid] 2 mg PO Q6H PRN #10 tablet 12/21/22 Omeprazole 40 mg PO DAILY #30 cap 02/03/23 Acetaminophen [Tylenol] 650 mg PO Q6H PRN #30 tab 03/13/23 Albuterol Sulf [Ventolin Hfa 1 - 2 puffs INH Q4HR PRN #1 each 03/13/23 Inhaler] Benzonatate [Tessalon] 200 mg PO TID PRN #30 cap 03/13/23 Cetirizine [ZyrTEC] 10 mg PO DAILY #30 tablet 03/13/23 Clotrimazole/Betamethasone Crm 1 applic TOP BID #1 each 08/12/23 [Lotrisone Cream] Doxycycline Hyclate 100 mg PO BID 10 Days #20 tab 09/08/23 Fluconazole [Diflucan] 100 mg PO Q3D #3 tablet 10/04/23 cephALEXin [Keflex] 500 mg PO TID #20 cap 10/04/23 HYDROcod/ACETAM 5/325 [[place] 5/325] 1 - 2 tablet PO Q6H PRN #7 tablet 10/29/23 predniSONE [Deltasone] 10 mg PO [id number] #42 tab 10/29/23 - Allergies Allergies/Adverse Reactions: Allergies Allergy/AdvReac Type Severity Reaction Status Date / Time dexamethasone Allergy Anxiety Verified 10/29/23 13:31 tramadol Allergy Unknown Verified 10/29/23 13:31 acetaminophen [From Vicodin] AdvReac severe Verified 10/29/23 13:31 headache hydrocodone bitartrate * AdvReac severe Verified 10/29/23 13:31 [From Vicodin] headache hydromorphone [From Dilaudid] AdvReac Headache Verified 10/29/23 13:31 NSAIDS (Non-Steroidal AdvReac Nausea Verified 10/29/23 13:31 Anti-Inflamma oxycodone AdvReac Unknown Verified 10/29/23 13:31 - Social History Does the pt smoke?: No Smoking Status: Never smoker Does the pt drink ETOH?: Yes Does the pt have substance abuse?: No - Immunizations Immunizations are current?: Yes - POLST Patient has POLST: No PD ED PE NORMAL - Vitals Vital signs reviewed: Yes - General General: Alert and oriented X 3, No acute distress, Well developed/nourished - HEENT HEENT: Atraumatic, PERRL, EOMI, Moist mucous membranes - Neck Neck: Supple, no meningeal sign - Respiratory Respiratory: No respiratory distress - Back Back: Other (No spinal to step-off. Tenderness to palpation over the T10-12 area. No edema. Tenderness extends into the adjacent musculature bilaterally.) - Derm Derm: Normal color, Warm and dry, No rash - Extremities Extremities: Other (Chronic contraction deformities consistent with patient's underlying condition. No acute findings.) - Neuro Neuro: Alert and oriented X 3 - Psych Psych: Normal mood, Normal affect Results - Vitals Vitals: Oxygen O2 Source Room air - Rads (name of study) T-spine x-ray series Relevant Findings:: Final report received, See rad report PD Medical Decision Making - ED course Complexity details: reviewed results, re-evaluated patient, considered differential, d/w patient ED course: The patient was treated symptomatically in the emergency department and evaluated with a T-spine x-ray series. Patient was feeling better after symptomatic management. T-spine x-ray series was unremarkable. Patient stable for discharge home. We have discussed symptomatic management at home as well as usual indications for follow-up and return. Departure - Departure Disposition: 01 Home, Self Care Clinical Impression: Low back strain Qualifiers: Encounter type: initial encounter Qualified Code(s): S39.012A - Strain of muscle, fascia and tendon of lower back, initial encounter Condition: Stable Instructions: ED Sprain Strain Lumbar Prescriptions: predniSONE [Deltasone] 10 mg PO [id number] #42 tab HYDROcod/ACETAM 5/325 [[place] 5/325] 1 - 2 tablet PO Q6H PRN #7 tablet PRN Reason: Pain Comments: Your x-ray series does not show any acute findings. You most likely strains in the soft tissues associated with the spine, such as ligament, tendon connection, or cartilage. You have been treated for pain and inflammation here in the emergency department and prescriptions for medication with the same of been electronically transmitted to the [facility] pharmacy in [place], your pharmacy of choice on record. Please go straight there from here to get your medication so that you can take it at home as needed. Please follow-up with your primary care physician for further concerns. Discharge Date/Time: 10/29/23 18:35
[2023-10-29] MEDS ORDERED: PROMETHAZINE 25 MG/1 ML VIAL IM STA (17:31)
--- NOTE | 2023-10-29 18:03 | XRAY Report ---
PROCEDURE: Thoracic Spine 2 View INDICATIONS: injury/pain to T10-12 TECHNIQUE: 2 views of the thoracic spine were acquired. COMPARISON: 12/21/2022 FINDINGS: Bones: Mild scattered degenerative changes. No acute traumatic subluxation. There is trace rightward spinal curvature on frontal view. Cervical thoracic junction and thoracolumbar junction are not well seen. Vertebral body heights are well-maintained where visualized. Soft tissues: Possible perihilar opacities seen on frontal view. IMPRESSION: Mild spondylosis without acute radiographic abnormality. Limited visualization of the upper thoracic and lower thoracic spine due to overlapping soft tissues. If there is high concern for occult injury, consider repeat radiography or cross-sectional imaging. Possible mild perihilar lung opacities. Reviewed by: Nicholas Nesbitt MD on 10/29/2023 6:02 PM PST Approved by: Nicholas Nesbitt MD on 10/29/2023 6:02 PM [facility], [place] Station ID: [id number]
[2023-10-29 18:39] VITALS: BP 130/93
== END 2023-10-29 18:35 | disposition home or self-care (01) ==
LOC: ED 12:52
DX: S39.012A Strain of muscle, fascia and tendon of lower back, initial encounter (principal); X50.1XXA Overexertion from prolonged static or awkward postures, initial encounter; Z99.3 Dependence on wheelchair; I10 Essential (primary) hypertension
CPT/HCPCS: 72070; 96372; 99283; J1170

== ENCOUNTER 2023-11-19 09:59 | Outpatient (CLI) | payer MEDICAID | END 2023-11-19 10:00 | disposition EMS.NT | LOC: EMS 09:59 | DX: R07.9 Chest pain, unspecified (principal) ==